=== PATIENT | male | born 1960 | race Caucasian/White ===

== ENCOUNTER 2024-07-09 14:06 | Inpatient (IN) | payer MEDICAID, SELFPAY ==
[2024-07-09] VITALS (35 sets, daily range): BP systolic 114–147; BP diastolic 63–84; PULSE 9–120; RESP 13–57; TEMP 37.2–38.6; O2SAT 81–100; BMI 20.7
--- NOTE | 2024-07-09 14:20 | PC.NURSE ---
PT BIB LIFESTAR DUE TO LOW 02 STAT, PT HAD AMS 3 DAYS PER EMS FIRE STATED HE WAS 67% ON RA PLACES ON NC 76% PT THEN WAS PLACED ON NON REBREATHER 15L 02 SAT 92% STAT PT HAS TACHY IN 110, FSBS 449 WITH EMS. PT HAS NKA. PT WAS BROUGHT TO ROOM AND WAS 82% ON NON REBREATHER. PT IS AWAKE FOLLOWS YOU WITH EYES NO OTHER RESPONSE.
--- NOTE | 2024-07-09 14:23 | PC.NURSE ---
and rt in room pt 82% on non rebreather 15l will place on high flow
--- NOTE | 2024-07-09 14:24 | PC.NURSE ---
sepsis alert called @[id number]
--- NOTE | 2024-07-09 14:24 | PD.EDSOB ---
ED SOB =RME/HPI General Chief Complaint: Altered Mental Status Stated Complaint: ALTERED MENTAL STATUS Time Seen by Provider: 07/09/24 14:28 Arrival date/time: 07/09/24 14:06 RME / HPI RME / HPI Narrative: DR. 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 Per EMS, patient was satting 67% on room air. No further history at this time. Related Data Home Medications ?Medication ?Instructions ?Recorded ?Confirmed bisacodyl 10 mg rectal suppository 10 mg TX Q72H PRN Constipation 10/12/23 10/12/23 (Dulcolax (bisacodyl)) ipratropium 0.5 mg-albuterol 3 mg 3 ml inhalation QID PRN Shortness 10/12/23 10/12/23 (2.5 mg base)/3 mL nebulization Of Breath Or Wheezing soln magnesium hydroxide 400 mg/5 mL 30 ml PO Q72H PRN Constipation 10/12/23 10/12/23 oral suspension (Milk of Magnesia) sodium phosphates 19 gram-7 118 ml TX Q72H PRN Constipation 10/12/23 10/12/23 gram/118 mL enema (Fleet Enema) Previous Rx's ?Medication ?Instructions ?Recorded cefdinir 250 mg/5 mL oral 300 mg (6 mL) feeding tube BID #60 12/26/23 suspension mL metformin 500 mg tablet 500 mg feeding tube BID #60 tabs 12/26/23 nxicibzjyyzl-buhyzjio-tuzlwfk 15 ml G-tube QDAY #750 mL 12/26/23 gluconate 12 mg iron/15 mL oral liquid thiamine mononitrate (vit B1) 100 100 mg feeding tube QDAY #30 tabs 12/26/23 mg tablet Allergies Allergy/AdvReac Type Severity Reaction Status Date / Time No Known Allergies Allergy Verified 10/16/22 11:35 Review of Systems Review of Systems ROS Unobtainable: unobtainable due to mental status and unobtainable due to medical condition Past Medical History Past Medical History NEUROLOGIC: Positive Neurological Disorders, Multiple Sclerosis and Peripheral Neuropathy; Negative Seizures CARDIAC: Positive Cardiac Disorders, Deep Vein Thrombosis and Hypertension RESPIRATORY: Positive Chronic Obstructive Pulmonary Disease (COPD) GASTROINTESTINAL: Positive Gastrointestinal Disorders, Gastrointestinal Bleed and Gastroesophageal Reflux Disease ENDOCRINE: Positive Endocrine Disorders and Diabetes Mellitus Type 2 HEMATOLOGIC: Negative Blood Disorders or Anemia PSYCHO/SOCIAL: Positive Depression and Anxiety OTHER HISTORY: Positive Hospitalization, Blood Transfusions, Chicken Pox, Measles and Mumps Family History FAMILY HISTORY: Positive Family Cardiac Disorders and Family Cancer Surgical History SURGICAL: Positive Angiogram and Tonsillectomy Social History SMOKING STATUS: Unknown if ever smoked SECOND HAND EXPOSURE: No SUBSTANCE USE: does not use ALCOHOL: Never ED Exam Narrative Physical exam: GENERAL APPEARANCE: awake but not responding; however, unknown baseline; in some respiratory distress, tachypneic VITALS: All vitals were reviewed and the pulse ox is 81% on 15 L/min via an Oxy Mask, which is hypoxic according to my interpretation. HEENT: Normocephalic, atraumatic; pupils equal, round, reactive to light; EOMI; mucous membranes pink, moist; oropharynx clear NECK: Supple LUNGS: in some respiratory distress, tachypneic; mild crackles in the right lower base HEART: tachycardic, regular rhythm; normal S1, S2; no murmurs ABDOMEN: non distended; normal BS; soft, no tenderness, no guarding, no rebound; no masses, no organomegaly, no hernia BACK: no CVA tenderness EXTREMITIES: atraumatic; lower extremity contractures NEUROLOGIC: awake but not responding; however, unknown baseline SKIN: warm, dry, normal color; no rashes Course Course Course Narrative: 1423: Sepsis alert initiated. Orders made at this time are congruent with ED Adult Sepsis Order List. Re-evaluation is to be completed. 1510: Fluids started. 1540: Sepsis reassessment performed consisting of lab review, vitals, physical exam including auscultation of heart, lungs, and visual evaluation of capillary refills, mucosal membranes and extremities. 1800: Patient was signed out to Dr. Garrido. Past medical, surgical, social and family history reviewed. Vitals and home medications reviewed. Results and treatment plan discussed. They will assume the care of the patient at this time and will follow the patient, pending abdomen/pelvis CT and final disposition. Quality Measures none Orders Category Date Time Status Bedside COVID-19 Antigen Test NOW Care 07/09/24 14:33 Active Bedside Influenza A&B Antigen Test NOW Care 07/09/24 14:33 Completed Development And Housing Director NOW Care 07/09/24 14:29 Active Catheter [Urinary Catheter] QS Care 07/09/24 14:29 Active EKG (ED ONLY) *Do not use* NOW Care 07/09/24 14:[address] abdomen pelvis wo con Stat Exams 07/09/24 16:24 Taken EKG (ED Only) Stat Exams 07/09/24 14:29 Draft XR chest 1V portable Stat Exams 07/09/24 14:29 Completed Arterial Blood Gas Stat Lab 07/09/24 14:42 Completed B-Type Natriuretic Peptide Stat Lab 07/09/24 14:27 Completed Blood Culture (Lab) Stat Lab 07/09/24 15:10 Received CBC Stat Lab 07/09/24 14:27 Completed Comprehensive Metabolic Panel Stat Lab 07/09/24 14:27 Completed Lactate (Lactic Acid) Stat Lab 07/09/24 14:44 Completed Lactic Acid, 3 HR Stat Lab 07/09/24 18:09 Received Lipase Stat Lab 07/09/24 14:27 Completed Magnesium Stat Lab 07/09/24 14:27 Completed Partial Thromboplastin Time Stat Lab 07/09/24 14:27 Completed Procalcitonin Stat Lab 07/09/24 14:27 Completed Prothrombin Time with INR Stat Lab 07/09/24 14:27 Completed Troponin I Stat Lab 07/09/24 14:27 Completed Urinalysis Stat Lab 07/09/24 14:38 Completed Urine Culture Stat Lab 07/09/24 14:38 Received Acetaminophen Supp [Tylenol Supp] Med 07/09/24 14:49 Discontinued 650 mg TX X1 ONE Insulin Regular Med 07/09/24 16:20 Discontinued 5 unit IV X1 ONE Insulin Regular Med 07/09/24 16:58 Discontinued 5 unit SC X1 ONE Piper/Tazo Inj [Zosyn Inj] 3.375 gm Med 07/09/24 16:22 Discontinued SODIUM CHLORIDE 0.9% (Popper) [Ns 0.9% (P)] 50 ml IV X1 Sodium Chloride 0.9% 1000 ml [Ns] 1,000 ml Med 07/09/24 14:49 Discontinued IV 999 mls/hr Sodium Chloride 0.9% 1000 ml [Ns] 1,000 ml Med 07/09/24 16:23 Discontinued IV 999 mls/hr Vancomycin/Ns 1 gm Ivpb 200 ml Med 07/09/24 18:30 Active IV X1 Oxygen Delivery NOW RT 07/09/24 14:41 Active Vital Signs Vital signs: Vital Signs Temperature 101.5 F H 07/09/24 14:20 Pulse Rate 120 H 07/09/24 14:20 Respiratory Rate 25 H 07/09/24 14:20 Blood Pressure 114/79 07/09/24 14:20 Pulse Oximetry (%) 81 L 07/09/24 14:20 Oxygen Delivery Method Oxy Mask 07/09/24 14:20 Oxygen Flow Rate 15 07/09/24 14:20 Procedures -ED EKG Interpretation #1: Date of EK07/09/24 Time of EK:47 Rate: 115 Interpretation: Interpreted by me Additional EKG comment: sinus tachycardia, rate 115, low voltage, Q wave in V1, slight depression in V6, diffuse ST segment Shortness of Breath / Dyspnea MDM Narrative MDM Narrative:: Vickie Reynoso am scribing for and in the presence of Dr. Olivia. Patient data External records reviewed:: [facility] previous records (Reviewed last admission discharge dated 12/26/23, patient admitted for the following: AMS) and EMS form Clinical information provided by:: EMS Social determinants that could affect healthcare access:: housing ([facility]) Patient has the following chronic illnesses:: Multiple sclerosis, CVA with hemiparesis and hemiplegia of the left side, hypertension, COPD, type 2 diabetes, hyperlipidemia, GERD, lower extremity contractures. How is presenting disease/condition affected by chronic disease/condition?: exacerbated by Evaluation data The following diagnostics were reviewed and interpreted by me:: lab results, radiology exam(s) and EKG tracing(s) (EKG#1: EKG at 1447 hours. Interpreted by me: sinus tachycardia, rate 115, low voltage, Q wave in V1, slight depression in V6, diffuse ST segment) Lab and/or radiology exams considered but not ordered:: none Interpretation Summary: Procedure(s): XR chest 1V portable Accession Number(s): [id number] cc: Aram Middleton MD; Darshana Olivia MD~ EXAMINATION: XR chest 1V portable ORDERING PROVIDER: Darshana Olivia MD HISTORY: chest pain TECHNIQUE: Single portable AP radiograph of the chest. COMPARISON: 12/23/2023, chest radiographs. FINDINGS: Lines and Tubes: Overlying monitoring leads. Lungs: Primarily linear opacities left lung base. Similar mild reticular nodular pattern. Pleura: No pneumothorax or large pleural effusion. Cardiomediastinal Silhouette: Mild prominence of the uncoiled aorta and calcifications of the aortic arch. Soft Tissues/Bones: Diffuse osteopenia. Overlying clothing and jewelry. IMPRESSION: Linear opacities left lung base which may represent developing infection or scarring/atelectasis in setting of old left basilar pneumonia. Dictated By: Aram Middleton MD Medications / Prescriptions Medications or Prescriptions considered but not ordered:: none Medication administrations:: Medication Administration History Vancomycin/Sodium Chloride (Vancomycin/Ns 1 Gm Ivpb) 200 mls @ 120 mls/hr IV X1 ONE Stop: 07/09/24 20:09 Discontinued Medications Acetaminophen (Acetaminophen Supp 650 Mg Supp) 650 mg TX X1 ONE Stop: 07/09/24 14:50 Last Admin: 07/09/24 15:13 Dose: 650 mg Documented By: BD Sodium Chloride (Ns) 1,000 mls @ 999 mls/hr IV .Q1H1M ONE Stop: 07/09/24 15:49 Last Infusion: 07/09/24 16:15 Dose: Infused Documented By: Admin: 07/09/24 15:10 Dose: 999 mls/hr Documented By: BD Piperacillin Sod/Tazobactam (Sod 3.375 gm/ Sodium Chloride) 50 mls @ 100 mls/hr IV X1 ONE Stop: 07/09/24 16:51 Last Infusion: 07/09/24 17:21 Dose: Infused Documented By: Admin: 07/09/24 16:28 Dose: 100 mls/hr Documented By: BD Sodium Chloride (Ns) 1,000 mls @ 999 mls/hr IV .Q1H1M ONE Stop: 07/09/24 17:23 Last Infusion: 07/09/24 18:01 Dose: Infused Documented By: Admin: 07/09/24 16:29 Dose: 999 mls/hr Documented By: BD Insulin Human Regular (Insulin Hum Regular 1 Unit/0.01 Ml (Per Unit)) 5 unit IV X1 ONE Stop: 07/09/24 16:21 Last Admin: 07/09/24 16:25 Dose: 5 unit Documented By: NEHA Co-signed By: [facility] Insulin Human Regular (Insulin Hum Regular 1 Unit/0.01 Ml (Per Unit)) 5 unit SC X1 ONE Stop: 07/09/24 16:59 Last Admin: 07/09/24 18:15 Dose: Not Given Documented By: NEHA Non-Admin Reason: Cancelled by Provider see above Consultations Consultation(s) initiated? (list below): No Diagnosis Shortness of Breath Differential Diagnosis: congestive heart failure, community acquired pneumonia, asthma with exacerbation, pulmonary embolism and other (sepsis) Most likely diagnosis given after review of the tests above:: No official diagnoses at this time, still pending diagnostic tests. Patient signout to the retail shift supervisor provider. Admission Indicated Admission indicated?: not indicated Explain why admission is indicated or not indicated:: No final disposition plan at this time, still pending diagnostic tests. Patient signout to the retail shift supervisor provider. Admission Request Was there a request for admission?: No Disposition Plan Disposition Plan: other (specify) (Patient signout to the retail shift supervisor provider.) Critical Care Time Critical Care Time Critical Care Time: Yes Total Critical Care Time (min.): 30 Attestation: The high probability of sudden, clinically significant deterioration in the patient?s condition required the highest level of my preparedness to intervene urgently. The services I provided to this patient were to treat and/or prevent clinically significant deterioration. Services included the following: chart data review, reviewing nursing notes and/or old charts, documentation time, corporate health consultant collaboration regarding findings and treatment options, medication orders and management, direct patient care, vital sign assessments and ordering, interpreting and reviewing diagnostic studies and lab tests. Aggregate critical care time includes only time during which I was engaged in work directly related to the patient?s care, as described above, whether at bedside or elsewhere in the Emergency Department. It did not include time spent performing other reported procedures or the services of residents, students, nurses or physician assistants. Discharge Plan Prescriptions/Referrals Prescriptions/Med Rec: No Action ipratropium-albuterol 0.5 mg-3 mg(2.5 mg base)/3 mL Solution For Nebulization 3 ml INHALATION QID PRN (Reason: Shortness Of Breath Or Wheezing) magnesium hydroxide [Milk of Magnesia] 400 mg/5 mL Suspension 30 ml PO Q72H PRN (Reason: Constipation) Rx Instructions: if no bm for 3 days bisacodyl [Dulcolax (bisacodyl)] 10 mg Suppository 10 mg TX Q72H PRN (Reason: Constipation) Rx Instructions: if mom is ineffective Fleet Enema 19-7 gram/118 mL Enema 118 ml TX Q72H PRN (Reason: Constipation) Rx Instructions: if mom/dulcolax ineffective [id number] gluconate 12 mg iron/15 mL Liquid 15 ml G-tube QDAY Qty: 750 0RF thiamine mononitrate (vit B1) 100 mg Tablet 100 mg feeding tube QDAY Qty: 30 0RF cefdinir 250 mg/5 mL suspension for reconstitution 300 mg feeding tube BID Qty: 60 0RF metformin 500 mg Tablet 500 mg feeding tube BID Qty: 60 0RF Referrals: Cristian Ferguson MD [Primary Care Provider] - In 1 week Problem List Clinical Impression: Hypoxia, Sepsis, AMS (altered mental status) Patient/Caregiver Discharge Instructions Print Language: Citizen Of [place]
--- NOTE | 2024-07-09 14:29 | XR_ITS ---
EXAMINATION: XR chest 1V portable ORDERING PROVIDER: Darshana Olivia MD HISTORY: chest pain TECHNIQUE: Single portable AP radiograph of the chest. COMPARISON: 12/23/2023, chest radiographs. FINDINGS: Lines and Tubes: Overlying monitoring leads. Lungs: Primarily linear opacities left lung base. Similar mild reticular nodular pattern. Pleura: No pneumothorax or large pleural effusion. Cardiomediastinal Silhouette: Mild prominence of the uncoiled aorta and calcifications of the aortic arch. Soft Tissues/Bones: Diffuse osteopenia. Overlying clothing and jewelry. IMPRESSION: Linear opacities left lung base which may represent developing infection or scarring/atelectasis in setting of old left basilar pneumonia.
--- NOTE | 2024-07-09 14:29 | EKG_ITS ---
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
[2024-07-09 14:47] LABS: Base Excess 5 (-3-3); HCO3 29 mEq/L (20-26); Inspired Oxygen, FIO2 100 %; O2 Saturation 89 % (91-98); PCO2 39 mmHg (32.0-48.0); pH, Arterial 7.47 (7.35-7.45)
[2024-07-09 14:49] LABS: Allen Test Performed/OK; PO2 54 mmHg (83-108); Puncture Site Right Brachial
[2024-07-09 14:53] LABS: Lactate (Lactic Acid) 2.3 mMol/L (0.4-2.0)
--- NOTE | 2024-07-09 14:57 | PC.NURSE ---
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 AND SHE STATED THAT SHE DOES NOT WANT US TO INTUBATE. ASK IF SHE WANTED TO SPEAK WITH DAUGHTER SHE SAID NOT AT THIS TO LET HER KNOW WE WILL TREAT WITH ABX AND FLUIDS.
[2024-07-09 14:59] LABS: Basophils # (Auto) 0.1 Thou/mm3 (0.0-0.2); Basophils % (Auto) 0 % (0-2.5); Eosinophils # (Auto) 0.1 Thou/mm3 (0.0-0.5); Eosinophils % (Auto) 0 % (0-10); Hematocrit 40.2 % (41.0-53.0); Hemoglobin 12.2 g/dL (13.5-16.0); Immature Granulocytes % (Auto) 1 % (0-0); Immature Granulocytes Auto 0.18 Thou/mm3 (0.00-0.00); Lymphocytes % (Auto) 6 % (10-50); Mean Corpuscular HGB Conc 30.3 g/dl (31.0-37.0); Mean Corpuscular Hemoglobin 25.9 pg (25.0-35.0); Mean Corpuscular Volume 85 fL (80-100); Monocytes # (Auto) 0.9 Thou/mm3 (0.0-0.8); Monocytes % (Auto) 3 % (0-12); Neutrophils # (Auto) 28.9 Thou/mm3 (1.8-7.7); Neutrophils % (Auto) 90 % (37-80); Nucleated Red Blood Cell % 0 /100 WBC (0); Platelet Count 723 Thou/mm3 (140-440); RDW Standard Deviation 51.8 fL (35.1-43.9); Red Blood Count 4.71 Miln/mm3 (4.50-5.90); White Blood Count 32.2 Thou/mm3 (3.8-10.6)
[2024-07-09 15:08] LABS: Collection Type, Urine Clean Catch
[2024-07-09] MEDS: SODIUM CHLORIDE 0.9% 1000 ML 1,000 ML 999 ML IV ×2 (15:10→16:29)
[2024-07-09 15:12] LABS: INR 1.2 (0.9-1.3); Partial Thromboplastin Time 29.9 Seconds (22.0-36.0)
[2024-07-09] MEDS: ACETAMINOPHEN SUPP 650 MG SUPP PR (15:13)
[2024-07-09 15:23] LABS: Alanine Aminotransferase 37 U/L (10-49); Albumin, Serum 3.8 gm/dL (3.4-4.8); Alkaline Phosphatase 91 U/L (46-116); Anion Gap 11 (7-16); Aspartate Amino Transferase 19 U/L (0-34); BUN/Creatinine Ratio 38 Ratio (12-20); Bilirubin,Total 0.2 mg/dL (0.3-1.2); Blood Urea Nitrogen 100 mg/dL (9-23); Calcium 9.4 mg/dL (8.3-10.6); Calcium (Corrected) 9.6 mg/dL (8.5-10.1); Carbon Dioxide 26.8 mMol/L (20.0-31.0); Chloride 119 mMol/L (98-107); Creatinine (Component) 2.6 mg/dL (0.6-1.3); Estimated Creatinine Clearance 27.8 mL/min (>60); Lipase 79 U/L (12-53); Magnesium 2.6 mg/dL (1.6-2.6); Osmolality,Calculated 365 (275-295); Potassium 4.9 mMol/L (3.4-5.1); Procalcitonin 1.38 ng/ml (0.0-0.49); Sodium 157 mMol/L (136-145); Total Protein 7.8 gm/dL (5.7-8.2); Troponin I < 0.020 ng/mL (0.0-0.045); eGFR 27 See Note
[2024-07-09 15:24] LABS: Glucose 515 mg/dL (74-106)
--- NOTE | 2024-07-09 15:30 | PC.NURSE ---
SOREN FROM [facility] CALLED TO ASK ROBSON ON PT INFORMED WE ARE WAITING FOR RESULTS AND THAT PT IS CURRENTLY ON HIGH FLOW. SHE WANTED US TO CALL DAUGHTER ADVISED THAT DAUGHTER HAS CALLED AND WE SPOKE WITH HER.SHE ALSO ADVISED THAT PT HAS BEEN NPO SINCE YESTERDAY DUE TO DIFFICULTY SWALLOWING.
--- NOTE | 2024-07-09 15:34 | PC.NURSE ---
CRITICAL VALUE FOR GLUCOSE 518 DR. SANTIAGO NOT AVAILABLE WILL NOTIFY WHEN BACK
[2024-07-09 15:38] LABS: Bilirubin,Urine Negative (Negative); Blood,Urine Negative (Negative); Color,Urine Yellow (Lt Yel-Yel); Glucose, Urine 3+ (Negative); Hyaline Casts,Urine < 1 /hpf (0-1); Ketones,Urine Negative (Negative); Leukocyte Esterase,Urine Positive (Negative); Nitrite,Urine Positive (Negative); Protein,Urine 1+ (Neg - Trace); RBC,Urine 7 /hpf (0-3); Specific Gravity,Urine 1.023 (1.001-1.035); Squamous Epithelial Cell,Urine 1 /hpf (0-5); Urobilinogen,Urine Negative mg/dL (0.0-1.0); WBC,Urine 62 /hpf (0-5)
[2024-07-09 15:40] LABS: Clarity,Urine Hazy (Clear/Hazy)
[2024-07-09 15:47] LABS: B-Type Natriuretic Peptide 52 pg/mL (0-100)
--- NOTE | 2024-07-09 16:20 | PC.NURSE ---
NOTIFIED DR. SANTIAGO OF BLOOD GLUCOSE 515
--- NOTE | 2024-07-09 16:21 | PC.NURSE ---
PT HAD EPISODE INCONTINENCE BRIEF CHANGED ALONG WITH CLEAN LINEN
--- NOTE | 2024-07-09 16:24 | XR_ITS ---
Examination: CT abdomen and pelvis without contrast. Coronal 3-D reconstructions. Sagittal 2-D reconstructions. Date and time of exam:July 10, 2023 1709 hrs. Indications: Sepsis abdominal pain today CTDI: vol (mGy): 7.92 DLP: (mGycm): 431 Technique: Axial images of the abdomen have been obtained, 3 mm slice thickness Intravenous contrast material has not been administered. Low dose protocols were performed. One or more of the following dose reduction techniques were used; automated exposure control, adjustment of the mA and/or KV according to patient size, use of iterative reconstruction technique. Findings: Bibasilar pneumonia, significant left base No focal liver or splenic lesion No gallstones No pancreatic or adrenal mass Bilateral renal calculi, the largest left kidney 5 mm Moderate right hydronephrosis, no ureteral calculi No pericecal inflammatory change No bowel obstruction Common iliac artery stents No diverticulitis Contracted urinary bladder with urinary bladder wall thickening urinary Marr catheter Transverse prostate dimension 3.6 cm Impression: Bibasilar pneumonia, significant left base Bilateral renal calculi Moderate right hydronephrosis, no ureteral calculi, consider right pyelonephritis Cystitis pattern
[2024-07-09] MEDS: INSULIN HUM REGULAR 1 UNIT/0.01 ML (PER UNIT) 5 UNIT IV (16:25)
[2024-07-09] MEDS: PIPER/TAZO INJ 3.375 GM in SODIUM CHLORIDE 0.9% (Popper) 50 ML IV (16:28)
--- NOTE | 2024-07-09 16:58 | PC.NURSE ---
NOTIFIED FSBS 398
--- NOTE | 2024-07-09 17:04 | PC.NURSE ---
PT WENT TO CT UNABLE TO GIVE INSULIN WILL GIVE WHEN PT RETURNS
--- NOTE | 2024-07-09 17:22 | PC.NURSE ---
CALLED PHARMACY FOR CLARITZA
[2024-07-09 17:50] LABS: Reflex Lactate? Y
--- NOTE | 2024-07-09 18:04 | PC.NURSE ---
DAUGHTER CALLED TO GET UPDATE ADVISED WE ARE WAITING FOR CT AT THIS TIME XRAY WAS NOT CLEAR. SHE WAS CONCERNED A RED SPOT LAST WEEK ON HIP ADVISED IT IS NOT VISIBLE. THERE IS A SCAB AT THE MOMENT SHE STATED OK. SHE SAID THAT HER SISTER MAY CALL TO TALK TO PT I ASKED IF SHE WANTED TO SHE SAID NO NOT AT THE MOMENT.
--- NOTE | 2024-07-09 18:14 | PC.NURSE ---
RECHECKED FSBS AFTER 2L FLUID [address] SANTIAGO SHE STATED TO CANCEL OTHER 5 UNITS INSULIN
--- NOTE | 2024-07-09 18:20 | PD.EDADDENDU ---
Emergency Room Addendum <Brooklyn Garrido MD - Last Filed: 07/09/24 19:12> Addendum Narrative: Care assumed from Dr. Olivia, the previous shift emergency physician. Past medical, surgical, social and family history reviewed. Vitals and home medications reviewed. Results and treatment plan discussed. I will assume the care of the patient at this time and will follow the patient, pending reevaluation, review all radiographs and admission. I, Dr. Franklin will following this patient with the resident. <Colby Forte MD - Last Filed: 07/09/24 23:12> Addendum Narrative: 1800: Care assumed from Dr. Olivia, the previous shift emergency physician. Past medical, surgical, social and family history reviewed. Vitals and home medications reviewed. Results and treatment plan discussed. I will assume the care of the patient at this time and will follow the patient, pending reevaluation, review all radiographs and admission. I, Dr. Franklin will follow this patient with the resident. 1814: Patient is awake but nonverbal, which is baseline for him. He is on high flow oxygen saturating 94%. Bilateral rhonchi appreciated on auscultation. 1914: Spoke with hospitalist team Dr. Valentin for admission, patient will be evaluated and possibly admitted. 2015: accepted for admission. <Curtis Bui - Last Filed: 07/09/24 20:11> Addendum Narrative: 1800: Care assumed from Dr. Olivia, the previous shift emergency physician. Past medical, surgical, social and family history reviewed. Vitals and home medications reviewed. Results and treatment plan discussed. I will assume the care of the patient at this time and will follow the patient, pending reevaluation, review all radiographs and admission. IDr. Franklin will follow this patient with the resident. 1814: Patient is awake but nonverbal, which is baseline for him. He is on high flow oxygen saturating 94%. Bilateral rhonchi appreciated on auscultation. 1914: Spoke with hospitalist team Dr. Valentin for admission, patient will be evaluated and possibly admitted. MD Attestation <Curtis Bui - Last Filed: 07/09/24 20:11> MD Attestation Scribe Attestation: I, Piter Bui, am scribing for and in the presence of Dr. Garrido. Provider Notation: Although this document has been carefully reviewed, there may still be some phonetic and other typographical errors. These errors are purely grammatical due to imperfections in the software program and should not be construed in any way to compromise the substance of the patient's medical care during this visit.
[2024-07-09 18:24] LABS: Lactic Acid, 3 HR 2.5 mMol/L (0.4-2.0)
[2024-07-09] MEDS: VANCOMYCIN/NS 1 GM IVPB 200 ML IV (18:35)
[2024-07-09 22:15] LABS: Lactate (Lactic Acid) 2.2 mMol/L (0.4-2.0)
--- NOTE | 2024-07-09 22:29 | ESHP_ITS ---
<Statement entered by Sandeep Alcocer MD - 07/13/24 05:05> 63-year-old male with multiple comorbidities including hypertension, hyperlipidemia, type 2 diabetes mellitus with subsequent ischemic CVA respiratory failure left-sided residual Who is nonverbal at baseline presented from [facility] for shortness of breath and hypoxia. In the ER, patient was noted to be hypoxic in the setting of sepsis secondary to pneumonia and acute pyelonephritis for which plan to start IV antibiotic therapy. In addition, patient also noted to have severe hyponatremia with sodium levels in the 160s and subsequently started on D5W. Furthermore, plan to admit the patient to ICU and monitored closely.I reviewed above note and agree with findings and plans. I have also personally examined the patient with medicine team and went over assessment and plan with medical team including technical support internship and resident physician. Documentation for date of: 07/09/24 HPI History of Present Illness Chief complaint: Hypoxemia /Hypernatremia History of present illness: 63 year old male patient with PMHx significant for MS, CVA with L/S hemiplegia, HTN, COPD, IDDM II, HLD, GERD, lower extremity contractures, who is also and bedridden, and non-verbal at baseline, BIBA from [facility] for complaints of shortness of breath, hypoxia for past 3 days. At ED patient's vitals were noted to be 115/80, HR 120, RR 25, T 101.5 with oxygen saturation of 81% on 15L OxyMask. Labs noted for WBC 32.2, Hgb 12.2, platelets 720, Na 164, Cl 128, Glucose 245, BUN 86, Cr 2.2, lactate of 2.2, procal of 1.4, and UA WBC 62. A/P CT showed significant left base pneumonia, bilateral nonobstructing renal calculi along with moderate hydronephrosis on the right side. Patient was started on Zosyn after receiving 2L of NS boluses at ED. Patient was initially admitted to the floor but was upgraded to ICU for further managment and care of sepsis secondary to pyelonephritis along with hypovolemic hypernatremia. Review of Systems Review of Systems ROS Unobtainable: unobtainable due to medical condition Past Medical History Past Medical History NEUROLOGIC: Positive Cerebrovascular Accident, Multiple Sclerosis and Paralysis Past Medical History Comments PMH COMMENT: Multiple sclerosis Right CVA with residual left lower extremity weakness Diabetes mellitus type 2 COPD secondary to smoking Exam Vital Signs Temp Pulse Resp BP Pulse Ox O2 Del Method O2 Flow Rate 99.1 F 88 20 114/63 96 Room Air 30 07/09/24 20:26 07/09/24 20:26 07/09/24 20:26 07/09/24 20:26 07/09/24 20:26 07/09/24 20:26 07/09/24 18:46 FiO2 80 07/09/24 18:46 Narrative Exam General: Alert, non verbal/bedbound, unable to follow commands, lying in bed in moderate distress. Cardio: Normal Rate and Rhythm with S1 and S2 heart sounds. No murmurs or extra heart sounds auscultated. No bruits on carotid auscultation. No peripheral edema or cyanosis. Lungs: Symmetric with good expansion. Chest and back non-tender. Breath sounds vesicular without crackles, wheezing or rhonchi Abdomen: Non-tender, Non-distended, Normal Reactive Bowel Sounds Neuro: Alert but does not follow commands, non verbal and bedbound, left upper hand/arm contracture noted. Unable to assess for complete neuroexam. Results: Labs 07/10/24 04:36 07/10/24 04:36 Labs: Short CBC 07/09/24 Range/Units 14:27 WBC 32.2 H (3.8-10.6) Thou/mm3 Hgb 12.2 L (13.5-16.0) g/dL Hct 40.2 L (41.0-53.0) % Plt Count 723 H (140-440) Thou/mm3 BMP 07/09/24 14:27 Sodium 157 H Potassium 4.9 Chloride 119 H Carbon Dioxide 26.8 BUN 100 H Creatinine 2.6 H Glucose 515 H* Calcium 9.4 Cardiac Enzymes 07/09/24 Range/Units 14:27 Troponin I < 0.020 (0.0-0.045) ng/mL Liver Function 07/09/24 Range/Units 14:27 Total Bilirubin 0.2 L (0.3-1.2) mg/dL AST 19 (0-34) U/L ALT 37 (10-49) U/L Alkaline Phosphatase 91 (46-116) U/L Albumin 3.8 (3.4-4.8) gm/dL Urine 07/09/24 Range/Units 14:38 Urine Color Yellow (Lt Yel-Yel) Urine Clarity Hazy (Clear/Hazy) Urine pH 6.0 (5.0-7.0) Ur Specific [place] 1.023 (1.001-1.035) Urine Protein 1+ A (Neg - Trace) Urine Glucose (UA) 3+ A (Negative) ABG Interpretation ABG results: 07/09/24 14:42 ABG pH 7.47 H ABG pCO2 39 ABG pO2 54 L* ABG HCO3 29 H ABG O2 Saturation 89 L ABG Base Excess 5 H Quality Measures Quality Measures none Medications Home Medications and Allergies Home Medications ?Medication ?Instructions ?Recorded ?Confirmed ?Type bisacodyl 10 mg rectal suppository 10 mg NV Q72H PRN C onstipation 10/12/23 07/10/24 History (Dulcolax (bisacodyl)) ipratropium 0.5 mg-albuterol 3 mg 3 ml inhalation QID PRN Shortness 10/12/23 07/10/24 History (2.5 mg base)/3 mL nebulization Of Breath Or Wheezing soln magnesium hydroxide 400 mg/5 mL 30 ml PO Q72H PRN Cons tipation 10/12/23 07/10/24 History oral suspension (Milk of Magnesia) sodium phosphates 19 gram-7 118 ml NV Q72H PRN Constip ation 10/12/23 07/10/24 History gram/118 mL enema (Fleet Enema) azithromycin 250 mg tablet 250 mg feeding tube QDAY 07/10/24 History Respiratory Infection insulin glargine 100 unit/mL (3 16 unit subcut HS Diab etes 07/10/24 07/10/24 History mL) subcutaneous pen (Lantus Solostar U-100 Insulin) Allergies Allergy/AdvReac Type Severity Reaction Status Date / Time No Known Allergies Allergy Verified 10/16/22 11:35 Visit Medications Albuterol/Ipratropium (Albuterol/Ipratropium (Duoneb) Rt Erica 3 Ml Nebu) 3 ml INH Q6HRRT TOOTIE Stop: 08/09/24 00:59 Bisacodyl (Bisacodyl 5 Mg Tabec) 10 mg PO QDAY PRN; Protocol PRN Reason: CONSTIPATION Stop: 08/08/24 22:14 Dextrose (Dextrose 50%-Water Inj 50 Ml Syringe) 25 ml IV Q15MIN PRN PRN Reason: BG 50-70 responsive npo pt Stop: 08/08/24 22:25 Dextrose (Dextrose 50%-Water Inj 50 Ml Syringe) 50 ml IV Q15MIN PRN PRN Reason: BG <50 OR BG <70 & pt unresponsive Stop: 08/08/24 22:25 Glucagon (Glucagon Inj 1 Mg Vial) 1 mg IM Q15MIN PRN PRN Reason: BG <70, and no IV access Piperacillin Sod/Tazobactam (Sod 4.5 gm/ Sodium Chloride) 100 mls @ 200 mls/hr IV Q6HR TOOTIE Stop: 07/16/24 22:23 Doxycycline Hyclate 100 mg/ (Sodium Chloride) 100 mls @ 100 mls/hr IV BID [facility] Stop: 07/16/24 22:29 Insulin Human Lispro (Insulin Lispro (Admelog) 1 Unit/0.01 Ml Unit) 0 unit SC AC [facility]; Protocol Stop: 08/09/24 07:29 Ondansetron HCl (Ondansetron Inj 2 Mg/Ml Inj 2 Ml) 4 mg IV Q6H PRN; Protocol PRN Reason: NAUSEA OR VOMITING Stop: 08/08/24 22:14 Oxycodone/Acetaminophen (Oxycodone/Apap 5/325 Tablet) 1 tab PO Q6H PRN PRN Reason: PAIN SCALE 4-6 (Moderate Stop: 07/14/24 22:14 Pantoprazole Sodium (Pantoprazole Inj 40 Mg Vial) 40 mg IVP QDAY [facility] Stop: 08/09/24 08:59 Pharmacy Consult (Pharmacy Renal Dose Adjustment 1 Ea) 1 each XX PRN PRN PRN Reason: CONSULT Stop: 08/08/24 22:22 Discontinued Medications Acetaminophen (Acetaminophen Supp 650 Mg Supp) 650 mg NV X1 ONE Stop: 07/09/24 14:50 Last Admin: 07/09/24 15:13 Dose: 650 mg Sodium Chloride (Ns) 1,000 mls @ 999 mls/hr IV .Q1H1M ONE Stop: 07/09/24 15:49 Last Infusion: 07/09/24 16:15 Dose: Infused Piperacillin Sod/Tazobactam (Sod 3.375 gm/ Sodium Chloride) 50 mls @ 100 mls/hr IV X1 ONE Stop: 07/09/24 16:51 Last Infusion: 07/09/24 17:21 Dose: Infused Sodium Chloride (Ns) 1,000 mls @ 999 mls/hr IV .Q1H1M ONE Stop: 07/09/24 17:23 Last Infusion: 07/09/24 18:01 Dose: Infused Vancomycin/Sodium Chloride (Vancomycin/Ns 1 Gm Ivpb) 200 mls @ 120 mls/hr IV X1 ONE Stop: 07/09/24 20:09 Last Admin: 07/09/24 18:35 Dose: 120 mls/hr Insulin Human Regular (Insulin Hum Regular 1 Unit/0.01 Ml (Per Unit)) 5 unit IV X1 ONE Stop: 07/09/24 16:21 Last Admin: 07/09/24 16:25 Dose: 5 unit Insulin Human Regular (Insulin Hum Regular 1 Unit/0.01 Ml (Per Unit)) 5 unit SC X1 ONE Stop: 07/09/24 16:59 Last Admin: 07/09/24 18:15 Dose: Not Given Assessment & Plan Plan 63 year old male patient with PMHx significant for MS, CVA with L/S hemiplegia, HTN, COPD, IDDM II, HLD, GERD, lower extremity contractures, who is also and bedridden, and non-verbal at baseline, BIBA from [facility] for complaints of shortness of breath, hypoxia for past 3 days. At ED patient's vitals were noted to be 115/80, HR 120, RR 25, T 101.5 with oxygen saturation of 81% on 15L OxyMask. Labs noted for WBC 32.2, Hgb 12.2, platelets 720, Na 164, Cl 128, Glucose 245, BUN 86, Cr 2.2, lactate of 2.2, procal of 1.4, and UA WBC 62. A/P CT showed significant left base pneumonia, bilateral nonobstructing renal calculi along with moderate hydronephrosis on the right side. Patient was started on Zosyn after receiving 2L of NS boluses at ED. Patient was initially admitted to the floor but was upgraded to ICU for further managment and care of sepsis secondary to PNA/ Pyelonephritis along with hypovolemic hypernatremia. 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 Patient alert and able to protect airways. No concern for stroke/bleed at this time. Does not follow commands, will continue to monitor patient for improvement. F/U with custodial for baseline mental status. CVS #Severe sepsis 2/2 Pyelonephritis. #Lactic acidosis -Fluid resuscitated, maintaining MAP>65. -Patient started on antibiotics with Zosyn and doxycycline. -F/U of BCx/UCX/sputum cultures #Hx of PE on Eliquis Continue home Eliquis bid Hypoxia/tachycardia likely 2/2 sepsis Low suspicion for new PE as patient is on Eliquis. Continue patient's home Eliquis and consider CTA if condition declines despite sepsis resolved. Resp #Acute hypoxic respiratory failure In setting of sepsis 2/2 PNA -On HFNC 25L of 90% FiO2 -No pneumonia findings on CXR. -Continue to monitor oxygen requirements and wean as tolerated. -Patient started on doxycycline and Zosyn. -Follow-up BCx/UCX/sputum cultures and MRSA screen. Renal #Pylonephritis #BARBARA likely prerenal in setting of severe dehydration. #Bilateral nonobstructing renal calculi #Right hydronephrosis #Hypovolemic hypernatremia -Sodium checks every 3 hours. -Free water deficit calculated to be 6.7L. -Aim for correction rate of 6?8 mill equivalent/day -Correct first 24-hour water deficit by 2 L of free water flushes. -Increase Free water flushes to 125cc/hr. -Nephrology consulted, recommendations appreciated. ID #Sepsis 2/2 PNA/pyelonephritis----resolving -Fluid resuscitated, lactate improving, de-escalate antibiotics as warranted -F/U cultures Heme Prior baseline Hgb 9?10, PLT 250 #Anemia chronic disease #Leukocytosis 2/2 Pyelonephritis #Acute anemia/thrombocytosis in setting of severe dehydration Patient fluid resuscitated, follow-up a.m. CBC Endo #IDDM II -Maintain BG between 140-180 ideally -Patient started on ISS. -Continue home glargine 16 units daily -Prior HbA1c on 10/24 7.6 -Follow-up A1c GI #PEG tube feeding. Dietary consult, resume tube feeding with adjustments accordingly. DVT prophylaxis: Eliquis Diet: Tube feeding Marr: + Lines: PIV, PEG tube CODE STATUS: Full code Reason for hospitalization/disposition: Sepsis 2/2 PNA- Pylonephritis- Hypernatremia Plan of care discussed with attending Dr. Leodan Mcnulty PGY-3
[2024-07-09 22:46] LABS: Albumin, Serum 3.2 gm/dL (3.4-4.8); Anion Gap 11 (7-16); BUN/Creatinine Ratio 39 Ratio (12-20); Blood Urea Nitrogen 86 mg/dL (9-23); Calcium 8.6 mg/dL (8.3-10.6); Carbon Dioxide 25.1 mMol/L (20.0-31.0); Chloride 128 mMol/L (98-107); Creatinine (Component) 2.2 mg/dL (0.6-1.3); Estimated Creatinine Clearance 32.8 mL/min (>60); Glucose 245 mg/dL (74-106); Osmolality,Calculated 358 (275-295); Potassium 4.2 mMol/L (3.4-5.1); eGFR 33 See Note
[2024-07-09 22:47] LABS: Calcium (Corrected) 9.2 mg/dL (8.5-10.1); Thyroid Stimulating Hormone 0.73 uIU/mL (0.55-4.78)
[2024-07-09] MEDS: DOXYCYCLINE INJ 100 MG in SODIUM CHLORIDE 0.9% (POP) 100 ML IV (22:50)
[2024-07-09 22:57] LABS: Sodium 164 mMol/L (136-145)
[2024-07-09] MEDS: LACTULOSE SYRUP 20 GM/30 ML UDC 10 GM GT (23:41)
[2024-07-09] MEDS: INSULIN LISPRO (AdmeLOG) 1 UNIT/0.01 ML UNIT SC (23:42)
[2024-07-10] VITALS (37 sets, daily range): BP systolic 103–147; BP diastolic 48–82; PULSE 92–128; RESP 7–48; TEMP 36.3–38.8; O2SAT 89–100; BMI 16.1; BMI 16.0
[2024-07-10] MEDS: ALBUTEROL/IPRATROPIUM (Duoneb) RT SOL 3 ML NEBU INH ×2 (00:10→06:08)
[2024-07-10] MEDS: PIPER/TAZO INJ 3.375 GM in SODIUM CHLORIDE 0.9% (Popper) 50 ML IV ×4 (00:13→21:29)
[2024-07-10 01:16] LABS: Reflex Lactate? Y
[2024-07-10 01:36] LABS: Lactic Acid, 3 HR 2.3 mMol/L (0.4-2.0)
[2024-07-10 01:48] LABS: Sodium 166 mMol/L (136-145)
--- NOTE | 2024-07-10 06:21 | PC.NURSE ---
Spoke to point of contact, Veronica Cramre (daughter) gave update on patient status. confirmed with daughter that patient wanted to be DNR and that the POLST form on file is not updated. Current status is full code and call was transfered to Dr. Mcnulty. Called [facility] where Patient is from and was unable to contact staff for updated POLST form.
--- NOTE | 2024-07-10 06:29 | PD.RESEVENT ---
Documentation for date of: 07/10/24 Event Note Event Note: Received call from patient's daughter Veronica who lives in [place] regarding patient's CODE STATUS and updated POLST form, she states that patient has an updated POLST form showing his status to be DNR/DNI. Records received from detention facility does not reflect CODE STATUS change and patient remains full code. Will contact patient's nursing facility with social worker delinquency prevention for updated POLST form in a.m.
[2024-07-10 06:32] LABS: Basophils # (Auto) 0.1 Thou/mm3 (0.0-0.2); Basophils % (Auto) 0 % (0-2.5); Eosinophils # (Auto) 0.4 Thou/mm3 (0.0-0.5); Eosinophils % (Auto) 1 % (0-10); Hematocrit 35.2 % (41.0-53.0); Hemoglobin 10.6 g/dL (13.5-16.0); Immature Granulocytes % (Auto) 1 % (0-0); Immature Granulocytes Auto 0.31 Thou/mm3 (0.00-0.00); Lymphocytes # (Auto) 1.4 Thou/mm3 (1.0-4.8); Lymphocytes % (Auto) 4 % (10-50); Mean Corpuscular HGB Conc 30.1 g/dl (31.0-37.0); Mean Corpuscular Hemoglobin 26.9 pg (25.0-35.0); Mean Corpuscular Volume 89 fL (80-100); Monocytes # (Auto) 1.1 Thou/mm3 (0.0-0.8); Monocytes % (Auto) 3 % (0-12); Neutrophils # (Auto) 33.1 Thou/mm3 (1.8-7.7); Neutrophils % (Auto) 91 % (37-80); Nucleated Red Blood Cell % 0 /100 WBC (0); Platelet Count 521 Thou/mm3 (140-440); Red Blood Count 3.94 Miln/mm3 (4.50-5.90)
--- NOTE | 2024-07-10 06:37 | PC.NURSE ---
Attempt #2 at calling [facility], no answer left voicemail regarding clarifying code status.
[2024-07-10 06:44] LABS: Alanine Aminotransferase 35 U/L (10-49); Albumin, Serum 3.4 gm/dL (3.4-4.8); Albumin/Globulin Ratio 0.9 (1.2-2.2); Alkaline Phosphatase 78 U/L (46-116); Anion Gap 14 (7-16); Aspartate Amino Transferase 18 U/L (0-34); BUN/Creatinine Ratio 38 Ratio (12-20); Bilirubin,Total 0.5 mg/dL (0.3-1.2); Blood Urea Nitrogen 80 mg/dL (9-23); Calcium 9.6 mg/dL (8.3-10.6); Calcium (Corrected) 10.1 mg/dL (8.5-10.1); Carbon Dioxide 26.4 mMol/L (20.0-31.0); Chloride 130 mMol/L (98-107); Creatinine (Component) 2.1 mg/dL (0.6-1.3); Estimated Creatinine Clearance 26.6 mL/min (>60); Globulin 3.7 gm/dL (2.3-3.5); Glucose 120 mg/dL (74-106); Magnesium 2.4 mg/dL (1.6-2.6); Osmolality,Calculated 360 (275-295); Phosphorous 2.9 mg/dL (2.4-5.1); Potassium 3.8 mMol/L (3.4-5.1); Total Protein 7.1 gm/dL (5.7-8.2); eGFR 35 See Note
[2024-07-10 06:49] LABS: White Blood Count 36.4 Thou/mm3 (3.8-10.6)
[2024-07-10 06:53] LABS: Sodium 170 mMol/L (136-145)
[2024-07-10 07:20] LABS: Glucose Estimated Average 200 mg/dL (80-131); Hemoglobin A1C 8.6 % Hgb (4.8-6.0)
[2024-07-10 07:46] LABS: Path Review Blood Smear Sent to Pathologist
--- NOTE | 2024-07-10 08:04 | PD.RESPRO ---
Documentation for date of: 07/10/24 Subjective Subjective Interval history: patient was examined bedside this morning, his sodium was 170. sharted him on D5W @45ml/hr and will continue free water flushed @20 ml/hr and do Q2 na checks. we are following up with the child welfare social worker for his comfirmed code status. we will update it accordingly . Exam Vital Signs Temp Pulse Resp BP Pulse Ox O2 Del Method O2 Flow Rate 98.1 F 99 31 H 128/62 99 High Flow Nasal Cannula 20 07/10/24 04:00 07/10/24 07:00 07/10/24 07:00 07/10/24 07:00 07/10/24 07:00 07/10/24 02:00 07/10/24 06:10 FiO2 70 07/10/24 06:10 Narrative Exam GENERAL: Adult male, nonverbal/bedbound unable to follow command, on high flow HEENT: Normocephalic, atraumatic. Pupils are equal and reactive. Oral mucosa is moist. NECK: Supple, nontender, no JVD CARDIOVASCULAR: Heart regular rhythm & rate. S1/S2. no murmur or gallop rub or extra beats. LUNGS: Clear to auscultation bilaterally with symmetrical chest rise. No laboring tachypnea or wheezing. No intercostal subcostal retraction. No rales and no rhonchi. ABDOMEN: Soft, flat, nontender to palpation, no guarding or rebound tenderness. Active and normal bowel sounds. G-tube in place NEURO: Alert but does not follow command, left upper hand contracture noted, bedbound PSYCHIATRIC: unable to access to patient medical condition Objective Labs 07/10/24 04:36 07/11/24 00:45 Labs: Laboratory Results - last 24 hr 07/09/24 07/09/24 07/09/24 14:27 14:38 14:42 WBC 32.2 H RBC 4.71 Hgb 12.2 L Hct 40.2 L MCV 85 MCH 25.9 MCHC 30.3 L RDW Std Deviation 51.8 H Plt Count 723 H Neut % (Auto) 90 H Lymph % (Auto) 6 L [place] % (Auto) 3 Eos % (Auto) 0 Baso % (Auto) 0 Neut # (Auto) 28.9 H Lymph # (Auto) 2.0 [place] # (Auto) 0.9 H Eos # (Auto) 0.1 Baso # (Auto) 0.1 Immature Gran # (Auto) 0.18 H Absolute Nucleated RBC 0.00 Immature Gran % 1 H Nucleated RBC % 0 Smear Path Review PT 13.0 H INR 1.2 APTT 29.9 Puncture Site Right Brachial ABG pH 7.47 H ABG pCO2 39 ABG pO2 54 L* ABG HCO3 29 H ABG O2 Saturation 89 L ABG Base Excess 5 H FiO2 100 Sodium 157 H Potassium 4.9 Chloride 119 H Carbon Dioxide 26.8 Anion Gap 11 BUN 100 H Creatinine 2.6 H Estim Creat Clear Calc 27.8 L eGFR 27 L BUN/Creatinine Ratio 38 H Glucose 515 H* Estimated Ave Glu mg/dL Hemoglobin A1c Calculated Osmolality 365 H Lactic Acid Calcium 9.4 Corrected Calcium 9.6 Phosphorus Magnesium 2.6 Total Bilirubin 0.2 L AST 19 ALT 37 Alkaline Phosphatase 91 Troponin I < 0.020 B-Natriuretic Peptide 52 Total Protein 7.8 Albumin 3.8 Globulin 4.0 H Albumin/Globulin Ratio 1.0 L Lipase 79 H Procalcitonin 1.38 H TSH Ur Collection Type Clean Catch Urine Color Yellow Urine Clarity Hazy Urine pH 6.0 Ur Specific [place] 1.023 Urine Protein 1+ A Urine Glucose (UA) 3+ A Urine Ketones Negative Urine Blood Negative Urine Nitrite Positive Urine Bilirubin Negative Urine Urobilinogen (Auto) Negative Ur Leukocyte Esterase Positive Urine RBC 7 H Urine WBC 62 H Ur Squamous Epith Cells 1 Urine Bacteria None Hyaline Casts < 1 07/09/24 07/09/24 07/09/24 14:44 18:09 22:03 WBC RBC Hgb Hct MCV MCH MCHC RDW Std Deviation Plt Count Neut % (Auto) Lymph % (Auto) [place] % (Auto) Eos % (Auto) Baso % (Auto) Neut # (Auto) Lymph # (Auto) [place] # (Auto) Eos # (Auto) Baso # (Auto) Immature Gran # (Auto) Absolute Nucleated RBC Immature Gran % Nucleated RBC % Smear Path Review PT INR APTT Puncture Site ABG pH ABG pCO2 ABG pO2 ABG HCO3 ABG O2 Saturation ABG Base Excess FiO2 Sodium Potassium Chloride Carbon Dioxide Anion Gap BUN Creatinine Estim Creat Clear Calc eGFR BUN/Creatinine Ratio Glucose Estimated Ave Glu mg/dL Hemoglobin A1c Calculated Osmolality Lactic Acid 2.3 H 2.5 H 2.2 H Calcium Corrected Calcium Phosphorus Magnesium Total Bilirubin AST ALT Alkaline Phosphatase Troponin I B-Natriuretic Peptide Total Protein Albumin Globulin Albumin/Globulin Ratio Lipase Procalcitonin TSH Ur Collection Type Urine Color Urine Clarity Urine pH Ur Specific [place] Urine Protein Urine Glucose (UA) Urine Ketones Urine Blood Urine Nitrite Urine Bilirubin Urine Urobilinogen (Auto) Ur Leukocyte Esterase Urine RBC Urine WBC Ur Squamous Epith Cells Urine Bacteria Hyaline Casts 07/09/24 07/10/24 07/10/24 22:07 01:06 01:27 WBC RBC Hgb Hct MCV MCH MCHC RDW Std Deviation Plt Count Neut % (Auto) Lymph % (Auto) [place] % (Auto) Eos % (Auto) Baso % (Auto) Neut # (Auto) Lymph # (Auto) [place] # (Auto) Eos # (Auto) Baso # (Auto) Immature Gran # (Auto) Absolute Nucleated RBC Immature Gran % Nucleated RBC % Smear Path Review PT INR APTT Puncture Site ABG pH ABG pCO2 ABG pO2 ABG HCO3 ABG O2 Saturation ABG Base Excess FiO2 Sodium 164 H* 166 H* Potassium 4.2 D Chloride 128 H* Carbon Dioxide 25.1 Anion Gap 11 BUN 86 H Creatinine 2.2 H Estim Creat Clear Calc 32.8 L eGFR 33 L BUN/Creatinine Ratio 39 H Glucose [address] Glu mg/dL Hemoglobin A1c Calculated Osmolality 358 H Lactic Acid 2.3 H Calcium 8.6 Corrected Calcium 9.2 Phosphorus 3.0 Magnesium Total Bilirubin AST ALT Alkaline Phosphatase Troponin I B-Natriuretic Peptide Total Protein Albumin 3.2 L D Globulin Albumin/Globulin Ratio Lipase Procalcitonin TSH 0.73 Ur Collection Type Urine Color Urine Clarity Urine pH Ur Specific [place] Urine Protein Urine Glucose (UA) Urine Ketones Urine Blood Urine Nitrite Urine Bilirubin Urine Urobilinogen (Auto) Ur Leukocyte Esterase Urine RBC Urine WBC Ur Squamous Epith Cells Urine Bacteria Hyaline Casts 07/10/24 04:36 WBC 36.4 H* RBC 3.94 L Hgb 10.6 L Hct 35.2 L MCV 89 MCH 26.9 MCHC 30.1 L RDW Std Deviation 55.0 H Plt Count 521 H D Neut % (Auto) 91 H Lymph % (Auto) 4 L [place] % (Auto) 3 Eos % (Auto) 1 Baso % (Auto) 0 Neut # (Auto) 33.1 H Lymph # (Auto) 1.4 [place] # (Auto) 1.1 H Eos # (Auto) 0.4 Baso # (Auto) 0.1 Immature Gran # (Auto) 0.31 H Absolute Nucleated RBC 0.00 Immature Gran % 1 H Nucleated RBC % 0 Smear Path Review Sent to Pathologist PT INR APTT Puncture Site ABG pH ABG pCO2 ABG pO2 ABG HCO3 ABG O2 Saturation ABG Base Excess FiO2 Sodium 170 H* Potassium 3.8 Chloride 130 H* Carbon Dioxide 26.4 Anion Gap 14 BUN 80 H Creatinine 2.1 H Estim Creat Clear Calc 26.6 L eGFR 35 L BUN/Creatinine Ratio 38 H Glucose [address] Glu mg/dL 200 H Hemoglobin A1c 8.6 H Calculated Osmolality 360 H Lactic Acid Calcium 9.6 Corrected Calcium 10.1 Phosphorus 2.9 Magnesium 2.4 Total Bilirubin 0.5 AST 18 ALT 35 Alkaline Phosphatase 78 Troponin I B-Natriuretic Peptide Total Protein 7.1 Albumin 3.4 Globulin 3.7 H Albumin/Globulin Ratio 0.9 L Lipase Procalcitonin TSH Ur Collection Type Urine Color Urine Clarity Urine pH Ur Specific [place] Urine Protein Urine Glucose (UA) Urine Ketones Urine Blood Urine Nitrite Urine Bilirubin Urine Urobilinogen (Auto) Ur Leukocyte Esterase Urine RBC Urine WBC Ur Squamous Epith Cells Urine Bacteria Hyaline Casts ABG Interpretation ABG results: 07/09/24 14:42 ABG pH 7.47 H ABG pCO2 39 ABG pO2 54 L* ABG HCO3 29 H ABG O2 Saturation 89 L ABG Base Excess 5 H Quality Measures Quality Measures none Assessment & Plan Assessment Current Active Medications: Generic Name Dose Route Start Last Admin Trade Name Freq PRN Reason Stop Dose Admin Acetaminophen 650 mg 07/10/24 00:32 Acetaminophen 325 Mg Tablet PO 08/09/24 00:31 Q4HR PRN PAIN SCALE 1-3 (mild Acetaminophen 650 mg 07/10/24 00:32 Acetaminophen Supp 650 Mg Supp SD 08/09/24 00:31 Q4HR PRN PAIN SCALE 1-3 (mild Al Hydrox/Mg Hydrox/Simethicone 30 ml 07/10/24 00:32 Mg Hyd/Al Hyd/Brittany (Maalox Reg) Susp 30 Ml Udc PO 08/09/24 00:31 Q4HR PRN Heartburn or Upset Stomach Albuterol/Ipratropium 3 ml 07/10/24 01:00 07/10/24 06:08 Albuterol/Ipratropium (Duoneb) Rt Erica 3 Ml Nebu INH 08/09/24 00:59 3 ml Q6HRRT TOOTIE Administration Apixaban 5 mg 07/10/24 09:00 Apixaban 2.5 Mg Tablet PO 07/31/24 08:59 BID TOOTIE Dextrose 25 ml 07/09/24 22:26 Dextrose 50%-Water Inj 50 Ml Syringe IV 08/08/24 22:25 Q15MIN PRN BG 50-70 responsive npo pt Dextrose 50 ml 07/09/24 22:26 Dextrose 50%-Water Inj 50 Ml Syringe IV 08/08/24 22:25 Q15MIN PRN BG <50 OR BG <70 & pt unresponsive Glucagon 1 mg 07/09/24 22:26 Glucagon Inj 1 Mg Vial IM Q15MIN PRN BG <70, and no IV access Doxycycline Hyclate 100 mg/ 100 mls @ 100 mls/hr 07/10/24 09:00 Sodium Chloride IV 07/16/24 22:29 BID [facility] Acetaminophen 1,000 mg in 100 mls @ 250 mls/hr 07/09/24 22:31 Ofirmev Inj IV 07/10/24 12:23 Q6HR PRN fever 100.5 Piperacillin Sod/Tazobactam 50 mls @ 12.5 mls/hr 07/10/24 14:00 Sod 3.375 gm/ Sodium Chloride IV 07/17/24 13:59 Q8HR TOOTIE Dextrose 1,000 mls @ 75 mls/hr 07/10/24 07:30 D5w IV 08/09/24 07:29 .[id number] [facility] Insulin Glargine 16 unit 07/10/24 09:00 Insulin Glargine (Lantus) 5 Unit/0.05 Ml (Per 5 Units) SC 08/09/24 08:59 QDAY [facility] Insulin Human Lispro 0 unit 07/09/24 23:00 07/09/24 23:42 Insulin Lispro (Admelog) 1 Unit/0.01 Ml Unit SC 08/08/24 22:59 2 unit ACHS [facility] Administration Protocol Magnesium Hydroxide 30 ml 07/10/24 00:32 Milk Of Magnesia Susp 30 Ml Udc PO 08/09/24 00:31 QDAY PRN CONSTIPATION Ondansetron HCl 4 mg 07/09/24 22:15 Ondansetron Inj 2 Mg/Ml Inj 2 Ml IV 08/08/24 22:14 Q6H PRN NAUSEA OR VOMITING Protocol Oxycodone/Acetaminophen 1 tab 07/09/24 22:45 Oxycodone/Apap 5/325 Tablet GT 07/14/24 22:44 Q6HR PRN PAIN Pantoprazole Sodium 40 mg 07/10/24 09:00 Pantoprazole Inj 40 Mg Vial IVP 08/09/24 08:59 QDAY [facility] Pharmacy Consult 1 each 07/09/24 22:23 Pharmacy Renal Dose Adjustment 1 Ea XX 08/08/24 22:22 PRN PRN CONSULT Plan 63 year old male patient with PMHx significant for MS, CVA with L/S hemiplegia, HTN, COPD, IDDM II, HLD, GERD, lower extremity contractures, who is also and bedridden, and non-verbal at baseline, BIBA from [facility] for complaints of shortness of breath, hypoxia for past 3 days. At ED patient's vitals were noted to be 115/80, HR 120, RR 25, T 101.5 with oxygen saturation of 81% on 15L OxyMask. Labs noted for WBC 32.2, Hgb 12.2, platelets 720, Na 164, Cl 128, Glucose 245, BUN 86, Cr 2.2, lactate of 2.2, procal of 1.4, and UA WBC 62. A/P CT showed significant left base pneumonia, bilateral nonobstructing renal calculi along with moderate hydronephrosis on the right side. Patient was started on Zosyn after receiving 2L of NS boluses at ED. Patient was initially admitted to the floor but was upgraded to ICU for further managment and care of sepsis secondary to PNA/ Pyelonephritis along with hypovolemic hypernatremia. 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 -Patient alert and able to protect airways. -No concern for stroke/bleed at this time. -was trying to follow commands. -F/U with long-term for baseline mental status. CVS #Severe sepsis 2/2 Pyelonephritis. #Lactic acidosis -Fluid resuscitated, maintaining MAP>65. -LA was 2.3 -Continue antibiotics with Zosyn and doxycycline. -F/U of BCx/UCX/sputum cultures- pending #Hx of PE on Eliquis -Continue home Eliquis bid -Hypoxia/tachycardia likely 2/2 sepsis -Low suspicion for new PE as patient is on Eliquis. -will continue patient's home Eliquis and consider CTA if condition declines despite sepsis resolved. Resp #Acute hypoxic respiratory failure on high flow NC In setting of sepsis 2/2 PNA -On HFNC 25L of 90% FiO2 -No pneumonia findings on CXR, CT scan shows Bibasilar pneumonia -Continue to monitor oxygen requirements and wean as tolerated. -Continue on doxycycline and Zosyn. -Follow-up BCx/UCX/sputum cultures and MRSA screen. Renal #Pylonephritis #BARBARA likely prerenal in setting of severe dehydration. #Bilateral nonobstructing renal calculi #Right hydronephrosis #Hypovolemic hypernatremia -Sodium checks every 3 hours. -Free water deficit calculated to be 1.1 L for nodium goal of 160 in 24 hr -Aim for correction rate of 10 mill equivalent/day -Correct first 24-hour water deficit by 20 ml/hr free water flushes with D5w @45 ml/hr -Nephrology Dr Gomez consulted, recommendations appreciated. ID #Sepsis 2/2 PNA/pyelonephritis----resolving -Fluid resuscitated, lactate improving, de-escalate antibiotics as warranted -F/U cultures Heme Prior baseline Hgb 9?10, PLT 250 #Anemia chronic disease #Leukocytosis 2/2 Pyelonephritis #Acute anemia/thrombocytosis in setting of severe dehydration Patient fluid resuscitated, follow-up a.m. CBC Endo #IDDM II -Maintain BG between 140-180 ideally -Patient started on ISS. -Continue home glargine 16 units daily -Prior HbA1c on 10/24 7.6, today 8.6 GI #PEG tube feeding. Dietary consulted , resume tube feeding with adjustments accordingly. DVT prophylaxis: Eliquis Diet: Tube feeding Hugo: + Lines: PIV, PEG tube CODE STATUS: Full code Reason for hospitalization/disposition: Sepsis 2/2 PNA- Pylonephritis- Hypernatremia Plan of care discussed with attending Dr.Ahmad Campos Meza MD,PGY-3 Attending Provider Attestation/Addendum Patient seen and examined with the above resident, Campos Meza MD. I agree with the findings, assessment, and plan of care as documented except for any difference below. Patient remains stable on HHHFNC slowly weaning down FiO2. Mentation does not appear to have improved to his baseline per report. Daughter is surrogate decision maker. Hypernatremia to be corrected by 10-12 in the next 24 hours, interim goal for tomorrow at [address] free water flushes and D5W via IV. Monitor serial Na to avoid overrapid correction. Continue on empiric antibiotics for infection. Ensure hugo was exchanged on arrival to the ED, appears to be one form out hospital. Monitor renal function. Can start on tube feeds. Continue on broad spectrum antibiotics with MRSA covered by doxycycline and zosyn for LIZZY. Adequate for both urinary and pulmonary sources at this time. Total critical care time: I personally spent 40 minutes for review of physiologic parameters, directing plan of care, and coordinaton of care with other specialists. This is exclusive of time spent teaching housestaff or performing any separate billable procedures. Patient remains at risk for further morbidity and mortality warranting close monitoring and care only available in the ICU. Pateint receving critical care services for acute hypoxic respiratory failure and hyperantremia with acute encephalopathy.
--- NOTE | 2024-07-10 08:42 | PC.SS ---
LITHOGRAPHED PLATE INSPECTOR informed by ICU resident need to obtain a copy of the patient's updated POLST form indicating that patient is DNR. LITHOGRAPHED PLATE INSPECTOR contacted [facility], no response. Message left requesting return call.
[2024-07-10 08:53] LABS: Sodium 166 mMol/L (136-145)
[2024-07-10] MEDS: DOXYCYCLINE INJ 100 MG in SODIUM CHLORIDE 0.9% (POP) 100 ML IV ×2 (09:05→20:22)
[2024-07-10] MEDS: PANTOPRAZOLE INJ 40 MG VIAL IVP (09:05)
[2024-07-10] MEDS: APIXABAN 2.5 MG TABLET 5 MG PO ×2 (09:06→20:32)
[2024-07-10] MEDS: INSULIN LISPRO (AdmeLOG) 1 UNIT/0.01 ML UNIT SC ×4 (09:06→23:10)
--- NOTE | 2024-07-10 09:51 | PC.SS ---
Addendum entered and electronically signed by DODIE Jacob 07/10/24 10:00: ADVERTISING SALES ASSISTANT informed patient's daughter, Veronica; that patient's code status is Full Code. Original Note: ADVERTISING SALES ASSISTANT conducted phone contact with patient's daughter, Veronica Cramer ; to confirm possession of medical POA. Patient's daughter confirmed possession of POA documentation. Patient's daughter to submit copy of POA to ADVERTISING SALES ASSISTANT via e-mail. Per daughter, medical POA; effective once patient is incapacitated and is unable to make own medical decisions. ADVERTISING SALES ASSISTANT updated ICU resident. Daughter requesting phone call with patient and ICU medical team to discuss Code Status with patient once the patient is no longer on high flow oxygen.
--- NOTE | 2024-07-10 10:16 | PC.SS ---
ACCOUNT ANALYST conducted phone contact with the patient?s daughter, Veronica Cramer to conduct initial assessment. Patient currently admitted to ICU on high flow oxygen.? Patient is a oil heat[place] resident of [facility].? Patient is bedbound.? Patient requires assistance with completion of ADL?s.? Patient?s medical surrogate decision maker is daughter, Veronica Cramer.? Patient?s PCP is Dr. Ferguson.? Plan is for the patient to return to [facility] upon discharge.? inpatient services rn to assist with arranging transportation on behalf of the patient.? No further intervention required at this time, social media coordinator will be available to address any further concerns.? Next of Kin: Veronica Shoaib D/C Plan: SNF
[2024-07-10] MEDS: INSULIN GLARGINE (Lantus) 5 UNIT/0.05 ML (PER 5 UNITS) 16 UNIT SC (10:40)
[2024-07-10] MEDS: DEXTROSE 5%-WATER 1,000 ML 45 ML IV (10:47)
[2024-07-10 10:51] LABS: Sodium 164 mMol/L (136-145)
[2024-07-10] MEDS: SODIUM CHLORIDE RT SOL 0.9% 3 ML NEBU INH ×4 (11:05→22:59)
[2024-07-10] MEDS: ALBUTEROL RT 2.5 MG/0.5 ML NEBU INH ×4 (11:06→22:59)
--- NOTE | 2024-07-10 11:10 | PC.DIETICIAN ---
Nutrition prescription Glucerna 1.2 at 25 ml/hr via PEG tube by pump. Advance 10 ml every 8 hrs to goal rate of 65 ml/hr x 24 hrs. If no IV fluids, water flushes of 25 ml/hr (or per MD).
[2024-07-10 12:41] LABS: Sodium 165 mMol/L (136-145)
[2024-07-10 17:03] LABS: Sodium 163 mMol/L (136-145)
[2024-07-10] MEDS: DEXTROSE 5%-WATER 1,000 ML 20 ML IV (17:16)
[2024-07-10] MEDS: ACETAMINOPHEN 325 MG TABLET 650 MG PO (17:43)
[2024-07-10 19:29] LABS: Sodium 163 mMol/L (136-145)
[2024-07-10 21:57] LABS: Potassium,Urine Random 67 mMol/L (12-62); Sodium,Urine Random 19.3 mMol/L (20.0-110.0)
[2024-07-10 22:08] LABS: Sodium 164 mMol/L (136-145)
[2024-07-11] VITALS (32 sets, daily range): BP systolic 111–157; BP diastolic 55–86; PULSE 91–117; RESP 10–44; TEMP 35.8–37.2; O2SAT 88–99; BMI 16.1
[2024-07-11 01:10] LABS: Sodium 164 mMol/L (136-145)
[2024-07-11] MEDS: ALBUTEROL RT 2.5 MG/0.5 ML NEBU INH ×6 (02:41→22:32)
[2024-07-11] MEDS: SODIUM CHLORIDE RT SOL 0.9% 3 ML NEBU INH ×4 (02:41→14:58)
[2024-07-11 03:34] LABS: Basophils # (Auto) 0.1 Thou/mm3 (0.0-0.2); Basophils % (Auto) 0 % (0-2.5); Eosinophils % (Auto) 0 % (0-10); Hematocrit 33.1 % (41.0-53.0); Immature Granulocytes % (Auto) 2 % (0-0); Immature Granulocytes Auto 0.67 Thou/mm3 (0.00-0.00); Lymphocytes # (Auto) 1.8 Thou/mm3 (1.0-4.8); Lymphocytes % (Auto) 4 % (10-50); Mean Corpuscular HGB Conc 30.2 g/dl (31.0-37.0); Mean Corpuscular Hemoglobin 26.3 pg (25.0-35.0); Mean Corpuscular Volume 87 fL (80-100); Monocytes # (Auto) 1.3 Thou/mm3 (0.0-0.8); Monocytes % (Auto) 3 % (0-12); Neutrophils # (Auto) 36.8 Thou/mm3 (1.8-7.7); Neutrophils % (Auto) 91 % (37-80); Nucleated Red Blood Cell % 0 /100 WBC (0); Platelet Count 459 Thou/mm3 (140-440); RDW Standard Deviation 53.3 fL (35.1-43.9)
[2024-07-11 03:39] LABS: White Blood Count 40.6 Thou/mm3 (3.8-10.6)
[2024-07-11 03:54] LABS: Alanine Aminotransferase 30 U/L (10-49); Albumin, Serum 3.2 gm/dL (3.4-4.8); Albumin/Globulin Ratio 0.9 (1.2-2.2); Alkaline Phosphatase 76 U/L (46-116); Anion Gap 14 (7-16); Aspartate Amino Transferase 14 U/L (0-34); BUN/Creatinine Ratio 31 Ratio (12-20); Bilirubin,Total 0.3 mg/dL (0.3-1.2); Blood Urea Nitrogen 74 mg/dL (9-23); Calcium 9.3 mg/dL (8.3-10.6); Calcium (Corrected) 9.9 mg/dL (8.5-10.1); Carbon Dioxide 21.8 mMol/L (20.0-31.0); Chloride 127 mMol/L (98-107); Creatinine (Component) 2.4 mg/dL (0.6-1.3); Estimated Creatinine Clearance 23.3 mL/min (>60); Globulin 3.6 gm/dL (2.3-3.5); Glucose 329 mg/dL (74-106); Osmolality,Calculated 357 (275-295); Phosphorous 1.7 mg/dL (2.4-5.1); Potassium 3.7 mMol/L (3.4-5.1); Total Protein 6.8 gm/dL (5.7-8.2); eGFR 30 See Note
[2024-07-11 03:56] LABS: Sodium 163 mMol/L (136-145)
[2024-07-11] MEDS: PIPER/TAZO INJ 3.375 GM in SODIUM CHLORIDE 0.9% (Popper) 50 ML IV (05:50)
[2024-07-11] MEDS: INSULIN LISPRO (AdmeLOG) 1 UNIT/0.01 ML UNIT SC ×3 (05:50→18:51)
[2024-07-11 07:20] LABS: Sodium 158 mMol/L (136-145)
--- NOTE | 2024-07-11 08:32 | XR_ITS ---
EXAMINATION: CT head/brain wo con ORDERING PROVIDER: Joan Gorman MD HISTORY: unequal pupils TECHNIQUE: CT scanner was used in the volumetric, helical non-contrast acquisition of the head with 2-D and 3-D reformats created on a separate workstation and submitted for interpretation. Institutional dose reducing protocols were utilized. Imaging is motion degraded. RADIATION DOSE: DLP 1033 mGy-cm COMPARISON: 12/21/2023, CT head FINDINGS: No acute intracranial hemorrhage, mass effect, or midline shift. There are extensive periventricular and subcortical white matter hypodensities again seen in the setting of mild to moderate parenchymal volume loss. New ill-defined decreased density in the left frontal lobe primarily affecting the superior gyrus, series 2 image 13. Again seen are multiple bilateral lacunar infarcts basal ganglia internal, and external capsules. Similar mild prominence of the ventricles. Basal cisterns are preserved. No hyperdense vessel sign. Orbits grossly unremarkable. Mild mucosal thickening left maxillary and right sphenoid sinus. Near complete opacification of the left sphenoid sinus with bubbly opacities. IMPRESSION: 1. No acute intracranial hemorrhage, mass effect, or midline shift. 2. Interval development of a left frontal lobe superior gyral ill-defined area of decreased density. Differential includes interval area of ischemic changes. MR is available as clinically indicated. 3. Background significant chronic small vessel ischemic changes and old lacunar infarcts. 4. Moderate inflammatory paranasal sinus mucosal disease.
[2024-07-11] MEDS: APIXABAN 2.5 MG TABLET 5 MG PO ×2 (08:37→20:45)
[2024-07-11] MEDS: INSULIN GLARGINE (Lantus) 5 UNIT/0.05 ML (PER 5 UNITS) 16 UNIT SC (08:38)
[2024-07-11] MEDS: DOXYCYCLINE INJ 100 MG in SODIUM CHLORIDE 0.9% (POP) 100 ML IV ×2 (08:38→20:45)
[2024-07-11] MEDS: PANTOPRAZOLE INJ 40 MG VIAL IVP (08:41)
[2024-07-11 10:03] LABS: Sodium 161 mMol/L (136-145)
--- NOTE | 2024-07-11 10:29 | ESCONSULT_ITS ---
HPI Data of Consult Requesting Physician: Smith Deshpande MD Admitting Provider: Sandeep Alcocer MD Attending Provider: Smith Deshpande MD Primary Care Provider: Cristian Ferguson MD Consult Narrative Reason for consult: BARBARA, hypernatremia History of present illness: Jamie Patiño is 63 yr male with PMH of MS, CVA with L/S hemiplegia, HTN, COPD, IDDM II, HLD, GERD, lower extremity contractures, who is also and bedridden, and non-verbal at baseline, BIBA from [facility] on 07/09/24 due to shortness of breath and hypoxia for past few days. Most history was obtained from chart review. At bedside he remains nonverbal. In ED, vitals significant for BP 115/80, tachycardic 120, RR 25, fever 101.5 with oxygen saturation of 81% on 15L OxyMask. Labs noted for WBC 32.2, Na 164, Cl 128, Glucose 245, BUN 86, Cr 2.2. A/P CT showed significant left base pneumonia, bilateral nonobstructing renal calculi along with moderate hydronephrosis on the right side. Nephrology was consutled for patient's BARBARA and hyperosmolar hypernatremia. cc:: cc: Smith Deshpande MD Review of Systems Review of Systems ROS Unobtainable: unobtainable due to mental status Exam Vital Signs Temp Pulse Resp BP Pulse Ox O2 Del Method O2 Flow Rate 98.9 F 104 H 44 H 143/74 H 96 High Flow Nasal Cannula 20 07/11/24 04:00 07/11/24 07:00 07/11/24 07:00 07/11/24 07:00 07/11/24 07:00 07/11/24 04:00 07/11/24 06:13 FiO2 45 07/11/24 06:13 Narrative Exam General:Adult male, nonverbal/bedbound unable to follow command, on high flow HEENT: NCAT, No JVD noted. Mucosa moist. Pupils are equal and reactive to light bilaterally Cardiovascular: Normal S1 and S2. Regular rate and rhythm. Respiratory: Lungs are clear to auscultation bilaterally. No wheezing or crackles heard. Abdomen: Soft, nontender, not distended, normal bowel sounds. Skin: Warm to touch, dry, no rashes noted Musculoskeletal: No gross injuries. No pitting edema Neuro: opens eyes to name, does not follow commands Psych: unable to assess Results Labs 07/13/24 04:32 07/13/24 16:17 Labs: Short CBC 07/11/24 Range/Units 03:17 WBC 40.6 H* (3.8-10.6) Thou/mm3 Hgb 10.0 L (13.5-16.0) g/dL Hct 33.1 L (41.0-53.0) % Plt Count 459 H D (140-440) Thou/mm3 BMP 07/10/24 07/10/24 07/10/24 09:36 12:06 16:45 Sodium 164 H* 165 H* 163 H* Potassium Chloride Carbon Dioxide BUN Creatinine Glucose Calcium 07/10/24 07/10/24 07/11/24 18:24 21:29 00:45 Sodium 163 H* 164 H* 164 H* Potassium Chloride Carbon Dioxide BUN Creatinine Glucose Calcium 07/11/24 07/11/24 07/11/24 03:17 06:50 09:23 Sodium 163 H* 158 H 161 H* Potassium 3.7 Chloride 127 H* Carbon Dioxide 21.8 BUN 74 H Creatinine 2.4 H Glucose 329 H D Calcium 9.3 Liver Function 07/11/24 Range/Units 03:17 Total Bilirubin 0.3 (0.3-1.2) mg/dL AST 14 (0-34) U/L ALT 30 (10-49) U/L Alkaline Phosphatase 76 (46-116) U/L Albumin 3.2 L (3.4-4.8) gm/dL ABG Interpretation ABG results: 07/09/24 14:42 ABG pH 7.47 H ABG pCO2 39 ABG pO2 54 L* ABG HCO3 29 H ABG O2 Saturation 89 L ABG Base Excess 5 H Quality Measures Quality Measures none Medications Home Medications and Allergies Home Medications ?Medication ?Instructions ?Recorded ?Confirmed ?Type bisacodyl 10 mg rectal suppository 10 mg AK Q72H PRN C onstipation 10/12/23 07/10/24 History (Dulcolax (bisacodyl)) ipratropium 0.5 mg-albuterol 3 mg 3 ml inhalation QID PRN Shortness 10/12/23 07/10/24 History (2.5 mg base)/3 mL nebulization Of Breath Or Wheezing soln magnesium hydroxide 400 mg/5 mL 30 ml PO Q72H PRN Cons tipation 10/12/23 07/10/24 History oral suspension (Milk of Magnesia) sodium phosphates 19 gram-7 118 ml AK Q72H PRN Constip ation 10/12/23 07/10/24 History gram/118 mL enema (Fleet Enema) azithromycin 250 mg tablet 250 mg feeding tube QDAY 07/10/24 History Respiratory Infection insulin glargine 100 unit/mL (3 16 unit subcut HS Diab etes 07/10/24 07/10/24 History mL) subcutaneous pen (Lantus Solostar U-100 Insulin) Allergies Allergy/AdvReac Type Severity Reaction Status Date / Time No Known Allergies Allergy Verified 10/16/22 11:35 Visit Medications Acetaminophen (Acetaminophen Supp 650 Mg Supp) 650 mg AK Q4HR PRN PRN Reason: PAIN SCALE 1-3 (mild Stop: 08/09/24 00:31 Acetaminophen (Acetaminophen 325 Mg Tablet) 650 mg PO Q4HR PRN PRN Reason: PAIN RATED 1-3OR FEVER > 101 Stop: 08/09/24 00:31 Last Admin: 07/10/24 17:43 Dose: 650 mg Al Hydrox/Mg Hydrox/Simethicone (Mg Hyd/Al Hyd/Brittany (Maalox Reg) Susp 30 Ml Udc) 30 ml PO Q4HR PRN PRN Reason: Heartburn or Upset Stomach Stop: 08/09/24 00:31 Albuterol (Albuterol Rt 2.5 Mg/0.5 Ml Nebu) 2.5 mg INH Q4HRRT TOOTIE Stop: 08/09/24 10:59 Last Admin: 07/11/24 06:09 Dose: 2.5 mg Apixaban (Apixaban 2.5 Mg Tablet) 5 mg PO BID TOOTIE Stop: 07/31/24 08:59 Last Admin: 07/11/24 08:37 Dose: 5 mg Dextrose (Dextrose 50%-Water Inj 50 Ml Syringe) 25 ml IV Q15MIN PRN PRN Reason: BG 50-70 responsive npo pt Stop: 08/08/24 22:25 Dextrose (Dextrose 50%-Water Inj 50 Ml Syringe) 50 ml IV Q15MIN PRN PRN Reason: BG <50 OR BG <70 & pt unresponsive Stop: 08/08/24 22:25 Glucagon (Glucagon Inj 1 Mg Vial) 1 mg IM Q15MIN PRN PRN Reason: BG <70, and no IV access Doxycycline Hyclate 100 mg/ (Sodium Chloride) 100 mls @ 100 mls/hr IV BID [facility] Stop: 07/16/24 22:29 Last Admin: 07/11/24 08:38 Dose: 100 mls/hr Piperacillin Sod/Tazobactam (Sod 3.375 gm/ Sodium Chloride) 50 mls @ 12.5 mls/hr IV Q8HR [facility] Stop: 07/11/24 12:00 Last Admin: 07/11/24 05:50 Dose: 12.5 mls/hr Dextrose (D5w) 1,000 mls @ 20 mls/hr IV .Q24H [facility] Stop: 08/09/24 17:10 Last Infusion: 07/10/24 18:00 Dose: 20 mls/hr Piperacillin/Tazobactam/Dextrose (Zosyn) 50 mls @ 12.5 mls/hr IV Q8HR [facility] Stop: 07/17/24 13:59 Insulin Glargine (Insulin Glargine (Lantus) 5 Unit/0.05 Ml (Per 5 Units)) 16 unit SC QDAY [facility] Stop: 08/09/24 08:59 Last Admin: 07/11/24 08:38 Dose: 16 unit Insulin Human Lispro (Insulin Lispro (Admelog) 1 Unit/0.01 Ml Unit) 0 unit SC Q6HR [facility]; Protocol Stop: 08/10/24 00:00 Last Admin: 07/11/24 05:50 Dose: 4 unit Magnesium Hydroxide (Milk Of Magnesia Susp 30 Ml Udc) 30 ml PO QDAY PRN PRN Reason: CONSTIPATION Stop: 08/09/24 00:31 Ondansetron HCl (Ondansetron Inj 2 Mg/Ml Inj 2 Ml) 4 mg IV Q6H PRN; Protocol PRN Reason: NAUSEA OR VOMITING Stop: 08/08/24 22:14 Oxycodone/Acetaminophen (Oxycodone/Apap 5/325 Tablet) 1 tab GT Q6HR PRN PRN Reason: PAIN SCALE 4-10(Mod-Sev Stop: 07/14/24 22:44 Pantoprazole Sodium (Pantoprazole Inj 40 Mg Vial) 40 mg IVP QDAY [place]OTIE Stop: 08/09/24 08:59 Last Admin: 07/11/24 08:41 Dose: 40 mg Pharmacy Consult (Pharmacy Renal Dose Adjustment 1 Ea) 1 each XX PRN PRN PRN Reason: CONSULT Stop: 08/08/24 22:22 Sodium Chloride (Sodium Chloride Rt Erica 0.9% 3 Ml Nebu) 3 ml INH PRN PRN PRN Reason: SOLN Stop: 08/09/24 10:39 Last Admin: 07/11/24 06:09 Dose: 3 ml Discontinued Medications Acetaminophen (Acetaminophen Supp 650 Mg Supp) 650 mg AK X1 ONE Stop: 07/09/24 14:50 Last Admin: 07/09/24 15:13 Dose: 650 mg Acetaminophen (Acetaminophen 325 Mg Tablet) 650 mg PO Q4HR PRN PRN Reason: PAIN SCALE 1-3 (mild Stop: 08/09/24 00:31 Albuterol/Ipratropium (Albuterol/Ipratropium (Duoneb) Rt Erica 3 Ml Nebu) 3 ml INH Q6HRRT TOOTIE Stop: 08/09/24 00:59 Last Admin: 07/10/24 06:08 Dose: 3 ml Bisacodyl (Bisacodyl 5 Mg Tabec) 10 mg PO QDAY PRN; Protocol PRN Reason: CONSTIPATION Stop: 08/08/24 22:14 Sodium Chloride (Ns) 1,000 mls @ 999 mls/hr IV .Q1H1M ONE Stop: 07/09/24 15:49 Last Infusion: 07/09/24 16:15 Dose: Infused Piperacillin Sod/Tazobactam (Sod 3.375 gm/ Sodium Chloride) 50 mls @ 100 mls/hr IV X1 ONE Stop: 07/09/24 16:51 Last Infusion: 07/09/24 17:21 Dose: Infused Sodium Chloride (Ns) 1,000 mls @ 999 mls/hr IV .Q1H1M ONE Stop: 07/09/24 17:23 Last Infusion: 07/09/24 18:01 Dose: Infused Vancomycin/Sodium Chloride (Vancomycin/Ns 1 Gm Ivpb) 200 mls @ 120 mls/hr IV X1 ONE Stop: 07/09/24 20:09 Last Infusion: 07/09/24 20:16 Dose: Infused Piperacillin Sod/Tazobactam (Sod 4.5 gm/ Sodium Chloride) 100 mls @ 200 mls/hr IV Q6HR [facility] Stop: 07/16/24 22:23 Last Admin: 07/10/24 21:19 Dose: Not Given Piperacillin/Tazobactam/Dextrose (Zosyn) 50 mls @ 100 mls/hr IV X1 ONE Stop: 07/09/24 23:14 Last Admin: 07/10/24 00:14 Dose: Not Given Acetaminophen (Ofirmev Inj) 1,000 mg in 100 mls @ 250 mls/hr IV Q6HR PRN PRN Reason: fever 100.5 Stop: 07/10/24 12:23 Doxycycline Hyclate 100 mg/ (Sodium Chloride) 100 mls @ 100 mls/hr IV X1 ONE Stop: 07/09/24 23:44 Last Infusion: 07/10/24 00:06 Dose: Infused Piperacillin Sod/Tazobactam (Sod 3.375 gm/ Sodium Chloride) 50 mls @ 100 mls/hr IV X1 ONE Stop: 07/10/24 00:40 Last Admin: 07/10/24 00:13 Dose: 100 mls/hr Piperacillin/Tazobactam/Dextrose 3.375 gm/ Sodium Chloride 150 mls @ 300 mls/hr IV Q8HR [facility]; Protocol Stop: 07/16/24 22:23 Piperacillin/Tazobactam/Dextrose (Zosyn) 50 mls @ 12.5 mls/hr IV Q8HR [facility] Stop: 07/16/24 22:23 Piperacillin Sod/Tazobactam (Sod 3.375 gm/ Sodium Chloride) 50 mls @ 12.5 mls/hr IV Q8HR [facility] Stop: 07/17/24 05:24 Last Admin: 07/10/24 05:58 Dose: 12.5 mls/hr Dextrose (D5w) 1,000 mls @ 75 mls/hr IV .[id number] [facility] Stop: 08/09/24 07:29 Last Admin: 07/10/24 21:19 Dose: Not Given Dextrose (D5w) 1,000 mls @ 45 mls/hr IV .[id number] [place] Stop: 08/09/24 09:51 Last Infusion: 07/10/24 17:16 Dose: 0 mls/hr Insulin Human Lispro (Insulin Lispro (Admelog) 1 Unit/0.01 Ml Unit) 0 unit SC AC [facility]; Protocol Stop: 08/09/24 07:29 Insulin Human Lispro (Insulin Lispro (Admelog) 1 Unit/0.01 Ml Unit) 0 unit SC ACHS [facility]; Protocol Stop: 08/08/24 22:59 Last Admin: 07/10/24 17:25 Dose: 4 unit Insulin Human Regular (Insulin Hum Regular 1 Unit/0.01 Ml (Per Unit)) 5 unit IV X1 ONE Stop: 07/09/24 16:21 Last Admin: 07/09/24 16:25 Dose: 5 unit Insulin Human Regular (Insulin Hum Regular 1 Unit/0.01 Ml (Per Unit)) 5 unit SC X1 ONE Stop: 07/09/24 16:59 Last Admin: 07/09/24 18:15 Dose: Not Given Lactulose (Lactulose Syrup 20 Gm/30 Ml Udc) 10 gm PO X1 ONE; Protocol Stop: 07/09/24 22:44 Last Admin: 07/09/24 23:42 Dose: Not Given Lactulose (Lactulose Syrup 20 Gm/30 Ml Udc) 10 gm GT X1 ONE; Protocol Stop: 07/09/24 22:46 Last Admin: 07/09/24 23:41 Dose: 10 gm Oxycodone/Acetaminophen (Oxycodone/Apap 5/325 Tablet) 1 tab PO Q6H PRN PRN Reason: PAIN SCALE 4-6 (Moderate Stop: 07/14/24 22:14 Oxycodone/Acetaminophen (Oxycodone/Apap 5/325 Tablet) 1 tab GT Q6HR PRN PRN Reason: PAIN Stop: 07/14/24 22:44 Sodium Chloride (Sodium Chloride Rt 10% 15 Ml Nebu) 5 ml INH X1 ONE Stop: 07/10/24 02:02 Last Admin: 07/10/24 21:19 Dose: Not Given Assessment & Plan Plan Jamie Patiño is 63 yr male with PMH of MS, CVA with L/S hemiplegia, HTN, COPD, IDDM II, HLD, GERD, lower extremity contractures, who is also and bedridden, and non-verbal at baseline, BIBA from [facility] on 07/09/24 due to shortness of breath and hypoxia for past few days. Most history was obtained from chart review. At bedside he remains nonverbal. Nephrology was consutled for patient's BARBARA and hyperosmolar hypernatremia. #Hyperosmolar hypernatremia #BARBARA Initially presented with sodium of 165, BUN 86, Cr 2.2. Patient was started on D5W 45cc/hr and free water flushes 20cc/hr. Most likely due to poor oral intake and dehydration along with setting of patient's sepsis leading to hypoperfusion. Currently BUN/Cr 31 indicating pre renal etiology. -Goal sodium over next 24 hrs ~148. -Sodium checks every 3 hours -Free water deficit calculated to be 1.7 L for goal above -continue correction with D5W maintainence and free water flushes as needed -avoid nephrotoxic agents -daily CMP #Bilateral nonobstructing renal calculi #Right hydronephrosis #Acute metabolic encephalopathy 2/2 hypernatremia and sepsis #Severe sepsis 2/2 Pyelonephritis #Lactic acidosis #Hx of PE on Eliquis #Acute hypoxic respiratory failure on high flow NC #Pylonephritis #Anemia chronic disease #Leukocytosis 2/2 Pyelonephritis #Acute anemia/thrombocytosis in setting of severe dehydration #IDDM II #PEG tube feeding -Continue care as per primary care team. The patient's management plan was discussed with my attending physician Dr. Gomez. Louann Rucker, PGY-1 Attending Provider Attestation/Addendum Pt seen and examined. Labs are reviewed. Discussed plan with resident. Notes by resident reviewed. Agree with assessment and plan Ludwig Gomez MD
--- NOTE | 2024-07-11 10:48 | CHAP ---
Patient was visited by a Spiritual Care volunteer on 07/11/2024 between 0900 and 0943 and received comfort, encouragement, and/or prayer.
--- NOTE | 2024-07-11 12:06 | PD.RESPRO ---
Documentation for date of: 07/11/24 Subjective Subjective Interval history: Patient was seen and examined. Patient was on 20 cc/h D5W along with 20 cc free water flushes through PEG tube, however sodium level was 164, overnight increased free water flushes 125 cc/h. Sodium level was corrected to 158 with glucose of about 300. Decision was made to increase free water flushes to 150 cc/h, increase D5W to 45 cc/h, with a goal of to correct sodium 8 mEq in 24 hours. We changed the sodium check to every 4 hours, continue closely monitor, avoid overcorrection. WBC trended up, currently is 40.6, urine culture grew GNR, blood cultures negative in 24-hour, sputum Gram stain positive for GNR and GPC, culture ARE still pending. Patient is on doxycycline and Zosyn to cover bilateral pneumonia and pyelonephritis. Respiratory status is improving, patient is off from high flow nasal cannula currently is on 2 L nasal cannula saturating 99%. Kidney function about the same, 2.4 creatinine, with a BUN of 74, continue correction of hyponatremia, evaluate mental status, Dr. Mcfadden is on board, recommendations appreciated. Overnight nurse noted that left pupil was a little bit dilated compared to the right, CT head was ordered, which revealed no acute hemorrhage, however showed Interval development of a left frontal lobe superior gyral ill-defined area of decreased density. Differential includes interval area of ischemic changes.MR is available as clinically indicated. Background significant chronic small vessel ischemic changes and old lacunar infarcts. Moderate inflammatory paranasal sinus mucosal disease. MRI was ordered, please follow the results. Exam Vital Signs Temp Pulse Resp BP Pulse Ox O2 Del Method O2 Flow Rate 98.9 F 94 26 H 143/74 H 95 High Flow Nasal Cannula 10 07/11/24 04:00 07/11/24 11:31 07/11/24 11:31 07/11/24 07:00 07/11/24 11:31 07/11/24 04:00 07/11/24 11: FiO2 45 07/11/24 06:13 Narrative Exam GENERAL: no acute distress, laying in bed, moving eyes following voice, however unknown baseline, HEENT: Head AT/ NC. Mucous membranes moist. Left pupil slightly dilated compared to right, both are reactive to light NECK: Supple, no lymphadenopathy, no carotid bruits. CARDIOVASCULAR: Normal S1/S2, No m/r/g. No pitting edema of bilateral LEs. RESPIRATORY: Mild bilateral crackles on left base, on nasal cannula 2 L saturating 99%. GASTROINTESTINAL: Abdomen soft, non tender no palpable masses. Bowel sounds present in all 4 quadrants. PEG noted MUSCULOSKELETAL:? No cyanosis or edema, no visible joint swelling. Bilateral contracture of upper and lower extremities INTEGUMENTARY: No obvious rashes, no jaundice, normal turgor. Objective Labs 07/12/24 03:24 07/12/24 07:52 Labs: Laboratory Results - last 24 hr 07/10/24 07/10/24 07/10/24 12:06 16:45 18:24 WBC RBC Hgb Hct MCV MCH MCHC RDW Std Deviation Plt Count Neut % (Auto) Lymph % (Auto) [place] % (Auto) Eos % (Auto) Baso % (Auto) Neut # (Auto) Lymph # (Auto) [place] # (Auto) Eos # (Auto) Baso # (Auto) Immature Gran # (Auto) Absolute Nucleated RBC Immature Gran % Nucleated RBC % Smear Path Review Sodium 165 H* 163 H* 163 H* Potassium Chloride Carbon Dioxide Anion Gap BUN Creatinine Estim Creat Clear Calc eGFR BUN/Creatinine Ratio Glucose Calculated Osmolality Calcium Corrected Calcium Phosphorus Magnesium Total Bilirubin AST ALT Alkaline Phosphatase Total Protein Albumin Globulin Albumin/Globulin Ratio Ur Random Sodium Ur Random Potassium 07/10/24 07/10/24 07/11/24 20:30 21:29 00:45 WBC RBC Hgb Hct MCV MCH MCHC RDW Std Deviation Plt Count Neut % (Auto) Lymph % (Auto) [place] % (Auto) Eos % (Auto) Baso % (Auto) Neut # (Auto) Lymph # (Auto) [place] # (Auto) Eos # (Auto) Baso # (Auto) Immature Gran # (Auto) Absolute Nucleated RBC Immature Gran % Nucleated RBC % Smear Path Review Sodium 164 H* 164 H* Potassium Chloride Carbon Dioxide Anion Gap BUN Creatinine Estim Creat Clear Calc eGFR BUN/Creatinine Ratio Glucose Calculated Osmolality Calcium Corrected Calcium Phosphorus Magnesium Total Bilirubin AST ALT Alkaline Phosphatase Total Protein Albumin Globulin Albumin/Globulin Ratio Ur Random Sodium 19.3 L Ur Random Potassium 67 H 07/11/24 07/11/24 07/11/24 03:17 06:50 09:23 WBC 40.6 H* RBC 3.80 L Hgb 10.0 L Hct 33.1 L MCV 87 MCH 26.3 MCHC 30.2 L RDW Std Deviation 53.3 H Plt Count 459 H D Neut % (Auto) 91 H Lymph % (Auto) 4 L [place] % (Auto) 3 Eos % (Auto) 0 Baso % (Auto) 0 Neut # (Auto) 36.8 H Lymph # (Auto) 1.8 [place] # (Auto) 1.3 H Eos # (Auto) 0.0 Baso # (Auto) 0.1 Immature Gran # (Auto) 0.67 H Absolute Nucleated RBC 0.00 Immature Gran % 2 H Nucleated RBC % 0 Smear Path Review Sodium 163 H* 158 H 161 H* Potassium 3.7 Chloride 127 H* Carbon Dioxide 21.8 Anion Gap 14 BUN 74 H Creatinine 2.4 H Estim Creat Clear Calc 23.3 L eGFR 30 L BUN/Creatinine Ratio 31 H Glucose 329 H D Calculated Osmolality 357 H Calcium 9.3 Corrected Calcium 9.9 Phosphorus 1.7 L Magnesium 2.0 Total Bilirubin 0.3 AST 14 ALT 30 Alkaline Phosphatase 76 Total Protein 6.8 Albumin 3.2 L Globulin 3.6 H Albumin/Globulin Ratio 0.9 L Ur Random Sodium Ur Random Potassium ABG Interpretation ABG results: 07/09/24 14:42 ABG pH 7.47 H ABG pCO2 39 ABG pO2 54 L* ABG HCO3 29 H ABG O2 Saturation 89 L ABG Base Excess 5 H Quality Measures Quality Measures none Assessment & Plan Assessment Current Active Medications: Generic Name Dose Route Start Last Admin Trade Name Freq PRN Reason Stop Dose Admin Acetaminophen 650 mg 07/10/24 00:32 Acetaminophen Supp 650 Mg Supp MN 08/09/24 00:31 Q4HR PRN PAIN SCALE 1-3 (mild Acetaminophen 650 mg 07/10/24 17:23 07/10/24 17:43 Acetaminophen 325 Mg Tablet PO 08/09/24 00:31 650 mg Q4HR PRN Administration PAIN RATED 1-3OR FEVER > 101 Al Hydrox/Mg Hydrox/Simethicone 30 ml 07/10/24 00:32 Mg Hyd/Al Hyd/Brittany (Maalox Reg) Susp 30 Ml Udc PO 08/09/24 00:31 Q4HR PRN Heartburn or Upset Stomach Albuterol 2.5 mg 07/10/24 11:00 07/11/24 11:31 Albuterol Rt 2.5 Mg/0.5 Ml Nebu INH 08/09/24 10:59 2.5 mg Q4HRRT TOOTIE Administration Apixaban 5 mg 07/10/24 09:00 07/11/24 08:37 Apixaban 2.5 Mg Tablet PO 07/31/24 08:59 5 mg BID TOOTIE Administration Dextrose 25 ml 07/09/24 22:26 Dextrose 50%-Water Inj 50 Ml Syringe IV 08/08/24 22:25 Q15MIN PRN BG 50-70 responsive npo pt Dextrose 50 ml 07/09/24 22:26 Dextrose 50%-Water Inj 50 Ml Syringe IV 08/08/24 22:25 Q15MIN PRN BG <50 OR BG <70 & pt unresponsive Glucagon 1 mg 07/09/24 22:26 Glucagon Inj 1 Mg Vial IM Q15MIN PRN BG <70, and no IV access Doxycycline Hyclate 100 mg/ 100 mls @ 100 mls/hr 07/10/24 09:00 07/11/24 08:38 Sodium Chloride IV 07/16/24 22:29 100 mls/hr BID TOOTIE Administration Dextrose 1,000 mls @ 20 mls/hr 07/10/24 17:11 07/10/24 18:00 D5w IV 08/09/24 17:10 20 mls/hr .Q24H TOOTIE Infusion Piperacillin/Tazobactam/Dextrose 50 mls @ 12.5 mls/hr 07/11/24 14:00 Zosyn IV 07/17/24 13:59 Q8HR TOOTIE Insulin Glargine 16 unit 07/10/24 09:00 07/11/24 08:38 Insulin Glargine (Lantus) 5 Unit/0.05 Ml (Per 5 Units) SC 08/09/24 08:59 16 unit QDAY TOOTIE Administration Insulin Human Lispro 0 unit 07/11/24 00:00 07/11/24 05:50 Insulin Lispro (Admelog) 1 Unit/0.01 Ml Unit SC 08/10/24 00:00 4 unit Q6HR TOOTIE Administration Protocol Magnesium Hydroxide 30 ml 07/10/24 00:32 Milk Of Magnesia Susp 30 Ml Udc PO 08/09/24 00:31 QDAY PRN CONSTIPATION Ondansetron HCl 4 mg 07/09/24 22:15 Ondansetron Inj 2 Mg/Ml Inj 2 Ml IV 08/08/24 22:14 Q6H PRN NAUSEA OR VOMITING Protocol Oxycodone/Acetaminophen 1 tab 07/11/24 08:25 Oxycodone/Apap 5/325 Tablet GT 07/14/24 22:44 Q6HR PRN PAIN SCALE 4-10(Mod-Sev Pantoprazole Sodium 40 mg 07/10/24 09:00 07/11/24 08:41 Pantoprazole Inj 40 Mg Vial IVP 08/09/24 08:59 40 mg QDAY TOOTIE Administration Pharmacy Consult 1 each 07/09/24 22:23 Pharmacy Renal Dose Adjustment 1 Ea XX 08/08/24 22:22 PRN PRN CONSULT Sodium Chloride 3 ml 07/10/24 10:40 07/11/24 11:31 Sodium Chloride Rt Erica 0.9% 3 Ml Nebu INH 08/09/24 10:39 3 ml PRN PRN Administration SOLN Plan 63 year old male patient with PMHx significant for MS, CVA with L/S hemiplegia, HTN, COPD, IDDM II, HLD, GERD, lower extremity contractures, who is also and bedridden, and non-verbal at baseline, BIBA from [facility] for complaints of shortness of breath, hypoxia for past 3 days. At ED patient's vitals were noted to be 115/80, HR 120, RR 25, T 101.5 with oxygen saturation of 81% on 15L OxyMask. Labs noted for WBC 32.2, Hgb 12.2, platelets 720, Na 164, Cl 128, Glucose 245, BUN 86, Cr 2.2, lactate of 2.2, procal of 1.4, and UA WBC 62. A/P CT showed significant left base pneumonia, bilateral nonobstructing renal calculi along with moderate hydronephrosis on the right side. Patient was started on Zosyn after receiving 2L of NS boluses at ED. Patient was initially admitted to the floor but was upgraded to ICU for further managment and care of sepsis secondary to PNA/ Pyelonephritis along with hypovolemic hypernatremia. 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 -Patient able to protect airways. -Partially to follow commands. Unknown baseline -[facility]. -Follow-up with MRI CVS #Severe sepsis 2/2 Pyelonephritis and bilateral PNA #Lactic acidosis - maintaining MAP>65. -LA was 2.4, continue IVF along with free water flushes -Blood culture preliminary negative, urine culture grew GNR, Resp #Acute hypoxic respiratory failure secondary to PNA resolved Patient is weaned off from high flow nasal cannula, currently saturating 96%. 2 L nasal cannula -No pneumonia findings on CXR, CT scan shows Bibasilar pneumonia -Continue to monitor oxygen requirements -Continue on doxycycline and Zosyn. -Sputum Gram stain showed GNR and GPC, could be contamination, follow with sputum culture #Hx of PE on Eliquis -Continue home Eliquis bid -Low suspicion for new PE as patient is on Eliquis. -will continue patient's home Eliquis and consider CTA if condition declines despite sepsis resolved. Renal #Pylonephritis #BARBARA likely prerenal in setting of severe dehydration. #Bilateral nonobstructing renal calculi #Right hydronephrosis #Hypovolemic hypernatremia -Sodium checks every 4-hour -Sodium goal is to correct 8 mEq in next 24 hours -Close monitor corrected sodium based on the glucose, -Avoid overcorrection, -Increased free water flushes 250 cc/h along with D5 W40 5 cc/h, monitor urine output -Calculate free water deficit daily based on results, regulate IVF and water flushes -Nephrology Dr Gomez consulted, recommendations appreciated. ID #Sepsis 2/2 PNA/pyelonephritis versus WBC up trended, currently is 40.6, will continue antibiotic, -Continue antibiotics, IVF, -F/U cultures Heme Prior baseline Hgb 9?10, PLT 250 #Anemia chronic disease #Leukocytosis 2/2 Pyelonephritis/PNA #Acute anemia/thrombocytosis in setting of severe dehydration Patient fluid resuscitated, follow-up a.m. CBC Endo #IDDM II -Maintain BG between 140-180 ideally -Patient started on ISS. -Continue home glargine 16 units daily, overnight patient received additional 16 units of sliding scale, adjust according -Prior HbA1c on 10/24 7.6, today 8.6 GI #PEG tube feeding. Dietary consulted , resume tube feeding with a goal of 65/h, currently running 35 mL/h with a 150 cc free water flushes every hour with adjustments accordingly. DVT prophylaxis: Eliquis Diet: Tube feeding Marr: + Lines: PIV, PEG tube CODE STATUS: Full code Patient care was discussed with attending physician Dr. Timmy Gorman MD PGY-2 Attending Provider Attestation/Addendum pt seen and examined with resident. In brief this is a 63yo M with h/o MS and CVA who resides in a NH brought in for AMS. pt was found to be hyperNa and started on free water and D5 with Na q4 draws. On exam he is contracted, nonverbal, with dry oral mucosa, lungs diminished with occasional crackles, HRRR, abd s/nt/bs+. pt noted to be on HFNC and we were able to titrate down to 10lt. CXR noted to have infiltrate and on abx for PNA, continue pulmonary toilette and CPT. currently tolerating tube feeds. stable for downgrade. case d/w ICU team labs, imaging, records reviewed ~37min required for eval, exam, review, intervention, discussion and formulation of POC for this pt with AMS and hyperNa
[2024-07-11 12:16] LABS: Sodium 158 mMol/L (136-145)
[2024-07-11] MEDS: PIPER/TAZO 3.375 GM PREMIX 50 ML IV ×2 (14:19→22:04)
[2024-07-11 16:15] LABS: Sodium 158 mMol/L (136-145)
--- NOTE | 2024-07-11 16:56 | ESPR_ITS ---
<Statement entered by Josué Ruff MD - 07/11/24 17:06> ICU downgrade: This 63 year old male patient with PMHx significant for MS, CVA with L/S hemiplegia, HTN, COPD, IDDM II, HLD, GERD, lower extremity contractures, who is also and bedridden, and non-verbal at baseline, BIBA from [facility] for complaints of shortness of breath, hypoxia for past 3 days. At ED patient's vitals were noted to be 115/80, HR 120, RR 25, T 101.5 with oxygen saturation of 81% on 15L OxyMask. Labs noted for WBC 32.2, Hgb 12.2, platelets 720, Na 164, Cl 128, Glucose 245, BUN 86, Cr 2.2, lactate of 2.2, procal of 1.4, and UA WBC 62. A/P CT showed significant left base pneumonia, bilateral nonobstructing renal calculi along with moderate hydronephrosis on the right side. Patient was started on Zosyn after receiving 2L of NS boluses at ED. Patient was initially admitted to the floor but was upgraded to ICU for further managment and care of acute encephalopathy due to severe sepsis secondary to PNA/ Pyelonephritis along with hypovolemic hypernatremia. Patient is downgraded to floors as sodium has been improving. F or sodium correction, ICU team changed to rate of D5W 45 cc/h and water flushes 150 cc/h. Goal of correction is 8 mEq in first 24 hours. By the night correction goal is 153. Denies sodium checks Q4 hourly. WBCs continues to uptrend, urine culture grew GNR blood cultures negative x 24 hours. Sputum Gram stain positive for GNR and GPC final cultures pending. Currently patient is being managed on doxycycline and Zosyn to cover bilateral pneumonia and pyelonephritis. Patient is off from high flow nasal cannula and respiratory pathology has improved. Kidney functions consistent with creatinine 2.4 and BUN 74. Nephrology is following the case for CKD and hyponatremia. Due to change in pupil size on the left side ICU team ordered head CT which was negative and only showed areas of decreased density. Chronic small vessel ischemic changes with old lacunar infarct were also seen. MRI brain to be followed up. I saw and examined the patient, and I agree with current management stated by Dr Cabrera MD,PGY1. Plan of care was discussed with the attending physician and resident physician. Disclaimer: Despite multiple revisions, due to the dictation software being used, the document bellow may not be free of grammatical errors including phonetic/typographic errors. However, this does not deter from our commitment to providing health care in the patient's best interest in mind. Dr. Elzbieta MD, PGY 2 Documentation for date of: Mr. Patiño is a 63-year-old with past medical history significant for multiple sclerosis, history of CVA with left-sided hemiplegia, hypertension, COPD, type 2 diabetes, hyperlipidemia, GERD was admitted to the ICU on 07/09 from half-way facility due to shortness of breath and hypoxia. Patient is now hemodynamically stable to be downgraded to floors. Patient was also found to have severe sepsis secondary to pneumonia and pyelonephritis as well as patient was found to have hypernatremia with initial sodium of 164. In the ICU patient remained on antibiotics and D5 W with water flushes the most recent sodium is 158 and goal is 153 5 tonight. Patient is seen and examined in the ICU, patient's eyes are open and stares and does not follow any commands nor follows my voice. Patient is currently saturating via oxy mask. Subjective Subjective Interval history: GENERAL: Not in acute distress, saturating via oxymask NEURO: no focal neurological deficits HEENT: Atraumatic, Normocephalic. mucous membranes moist. Eyes open, symmetrical, & clear HEART: Normal Heart Sounds LUNGS: crackles at the base of lungs ABDOMEN: soft, non-distended, non-tender, bowel sounds heard, no guarding or rebound tenderness SKIN: No Rash or ecchymoses EXTREMITIES: contracted upper and lower extremities Exam Vital Signs Temp Pulse Resp BP Pulse Ox O2 Del Method O2 Flow Rate 98.9 F 95 25 H 150/71 H 96 High Flow Nasal Cannula 10 07/11/24 04:00 07/11/24 15:01 07/11/24 15:01 07/11/24 14:00 07/11/24 15:01 07/11/24 04:00 07/11/24 15:01 FiO2 45 07/11/24 06:13 Objective Labs 07/12/24 03:24 07/12/24 11:30 Labs: Laboratory Results - last 24 hr 07/10/24 07/10/24 07/10/24 16:45 18:24 20:30 WBC RBC Hgb Hct MCV MCH MCHC RDW Std Deviation Plt Count Neut % (Auto) Lymph % (Auto) Wood % (Auto) Eos % (Auto) Baso % (Auto) Neut # (Auto) Lymph # (Auto) [place] # (Auto) Eos # (Auto) Baso # (Auto) Immature Gran # (Auto) Absolute Nucleated RBC Immature Gran % Nucleated RBC % Smear Path Review Sodium 163 H* 163 H* Potassium Chloride Carbon Dioxide Anion Gap BUN Creatinine Estim Creat Clear Calc eGFR BUN/Creatinine Ratio Glucose Calculated Osmolality Calcium Corrected Calcium Phosphorus Magnesium Total Bilirubin AST ALT Alkaline Phosphatase Total Protein Albumin Globulin Albumin/Globulin Ratio Ur Random Sodium 19.3 L Ur Random Potassium 67 H 07/10/24 07/11/24 07/11/24 21:29 00:45 03:17 WBC 40.6 H* RBC 3.80 L Hgb 10.0 L Hct 33.1 L MCV 87 MCH 26.3 MCHC 30.2 L RDW Std Deviation 53.3 H Plt Count 459 H D Neut % (Auto) 91 H Lymph % (Auto) 4 L [place] % (Auto) 3 Eos % (Auto) 0 Baso % (Auto) 0 Neut # (Auto) 36.8 H Lymph # (Auto) 1.8 Wood # (Auto) 1.3 H Eos # (Auto) 0.0 Baso # (Auto) 0.1 Immature Gran # (Auto) 0.67 H Absolute Nucleated RBC 0.00 Immature Gran % 2 H Nucleated RBC % 0 Smear Path Review Sodium 164 H* 164 H* 163 H* Potassium 3.7 Chloride 127 H* Carbon Dioxide 21.8 Anion Gap 14 BUN 74 H Creatinine 2.4 H Estim Creat Clear Calc 23.3 L eGFR 30 L BUN/Creatinine Ratio 31 H Glucose 329 H D Calculated Osmolality 357 H Calcium 9.3 Corrected Calcium 9.9 Phosphorus 1.7 L Magnesium 2.0 Total Bilirubin 0.3 AST 14 ALT 30 Alkaline Phosphatase 76 Total Protein 6.8 Albumin 3.2 L Globulin 3.6 H Albumin/Globulin Ratio 0.9 L Ur Random Sodium Ur Random Potassium 07/11/24 07/11/24 07/11/24 06:50 09:23 11:55 WBC RBC Hgb Hct MCV MCH MCHC RDW Std Deviation Plt Count Neut % (Auto) Lymph % (Auto) [place] % (Auto) Eos % (Auto) Baso % (Auto) Neut # (Auto) Lymph # (Auto) [place] # (Auto) Eos # (Auto) Baso # (Auto) Immature Gran # (Auto) Absolute Nucleated RBC Immature Gran % Nucleated RBC % Smear Path Review Sodium 158 H 161 H* 158 H Potassium Chloride Carbon Dioxide Anion Gap BUN Creatinine Estim Creat Clear Calc eGFR BUN/Creatinine Ratio Glucose Calculated Osmolality Calcium Corrected Calcium Phosphorus Magnesium Total Bilirubin AST ALT Alkaline Phosphatase Total Protein Albumin Globulin Albumin/Globulin Ratio Ur Random Sodium Ur Random Potassium 07/11/24 15:30 WBC RBC Hgb Hct MCV MCH MCHC RDW Std Deviation Plt Count Neut % (Auto) Lymph % (Auto) [place] % (Auto) Eos % (Auto) Baso % (Auto) Neut # (Auto) Lymph # (Auto) [place] # (Auto) Eos # (Auto) Baso # (Auto) Immature Gran # (Auto) Absolute Nucleated RBC Immature Gran % Nucleated RBC % Smear Path Review Sodium 158 H Potassium Chloride Carbon Dioxide Anion Gap BUN Creatinine Estim Creat Clear Calc eGFR BUN/Creatinine Ratio Glucose Calculated Osmolality Calcium Corrected Calcium Phosphorus Magnesium Total Bilirubin AST ALT Alkaline Phosphatase Total Protein Albumin Globulin Albumin/Globulin Ratio Ur Random Sodium Ur Random Potassium ABG Interpretation ABG results: 07/09/24 14:42 ABG pH 7.47 H ABG pCO2 39 ABG pO2 54 L* ABG HCO3 29 H ABG O2 Saturation 89 L ABG Base Excess 5 H Quality Measures Quality Measures none Assessment & Plan Assessment Current Active Medications: Generic Name Dose Route Start Last Admin Trade Name Freq PRN Reason Stop Dose Admin Acetaminophen 650 mg 07/10/24 00:32 Acetaminophen Supp 650 Mg Supp SD 08/09/24 00:31 Q4HR PRN PAIN SCALE 1-3 (mild Acetaminophen 650 mg 07/10/24 17:23 07/10/24 17:43 Acetaminophen 325 Mg Tablet PO 08/09/24 00:31 650 mg Q4HR PRN Administration PAIN RATED 1-3OR FEVER > 101 Al Hydrox/Mg Hydrox/Simethicone 30 ml 07/10/24 00:32 Mg Hyd/Al Hyd/Brittany (Maalox Reg) Susp 30 Ml Udc PO 08/09/24 00:31 Q4HR PRN Heartburn or Upset Stomach Albuterol 2.5 mg 07/10/24 11:00 07/11/24 14:58 Albuterol Rt 2.5 Mg/0.5 Ml Nebu INH 08/09/24 10:59 2.5 mg Q4HRRT TOOTIE Administration Apixaban 5 mg 07/10/24 09:00 07/11/24 08:37 Apixaban 2.5 Mg Tablet PO 07/31/24 08:59 5 mg BID TOOTIE Administration Dextrose 25 ml 07/09/24 22:26 Dextrose 50%-Water Inj 50 Ml Syringe IV 08/08/24 22:25 Q15MIN PRN BG 50-70 responsive npo pt Dextrose 50 ml 07/09/24 22:26 Dextrose 50%-Water Inj 50 Ml Syringe IV 08/08/24 22:25 Q15MIN PRN BG <50 OR BG <70 & pt unresponsive Glucagon 1 mg 07/09/24 22:26 Glucagon Inj 1 Mg Vial IM Q15MIN PRN BG <70, and no IV access Doxycycline Hyclate 100 mg/ 100 mls @ 100 mls/hr 07/10/24 09:00 07/11/24 08:38 Sodium Chloride IV 07/16/24 22:29 100 mls/hr BID TOOTIE Administration Dextrose 1,000 mls @ 20 mls/hr 07/10/24 17:11 07/10/24 18:00 D5w IV 08/09/24 17:10 20 mls/hr .Q24H TOOTIE Infusion Piperacillin/Tazobactam/Dextrose 50 mls @ 12.5 mls/hr 07/11/24 14:00 07/11/24 14:19 Zosyn IV 07/17/24 13:59 12.5 mls/hr Q8HR TOOTIE Administration Insulin Glargine 16 unit 07/10/24 09:00 07/11/24 08:38 Insulin Glargine (Lantus) 5 Unit/0.05 Ml (Per 5 Units) SC 08/09/24 08:59 16 unit QDAY TOOTIE Administration Insulin Human Lispro 0 unit 07/11/24 00:00 07/11/24 12:56 Insulin Lispro (Admelog) 1 Unit/0.01 Ml Unit SC 08/10/24 00:00 2 unit Q6HR TOOTIE Administration Protocol Magnesium Hydroxide 30 ml 07/10/24 00:32 Milk Of Magnesia Susp 30 Ml Udc PO 08/09/24 00:31 QDAY PRN CONSTIPATION Ondansetron HCl 4 mg 07/09/24 22:15 Ondansetron Inj 2 Mg/Ml Inj 2 Ml IV 08/08/24 22:14 Q6H PRN NAUSEA OR VOMITING Protocol Oxycodone/Acetaminophen 1 tab 07/11/24 08:25 Oxycodone/Apap 5/325 Tablet GT 07/14/24 22:44 Q6HR PRN PAIN SCALE 4-10(Mod-Sev Pantoprazole Sodium 40 mg 07/10/24 09:00 07/11/24 08:41 Pantoprazole Inj 40 Mg Vial IVP 08/09/24 08:59 40 mg QDAY TOOTIE Administration Pharmacy Consult 1 each 07/09/24 22:23 Pharmacy Renal Dose Adjustment 1 Ea XX 08/08/24 22:22 PRN PRN CONSULT Sodium Chloride 3 ml 07/10/24 10:40 07/11/24 14:58 Sodium Chloride Rt Erica 0.9% 3 Ml Nebu INH 08/09/24 10:39 3 ml PRN PRN Administration SOLN Plan Mr. Patiño is a 63-year-old with past medical history significant for multiple sclerosis, history of CVA with left-sided hemiplegia, hypertension, COPD, type 2 diabetes, hyperlipidemia, GERD was admitted to the ICU on 07/09 from half-way facility due to shortness of breath and hypoxia. Patient was also found to have severe sepsis secondary to pneumonia and pyelonephritis as well as patient was found to have hypernatremia. Pt was admitted to ICU on 07/09 and downgraded to floors on 07/11 for continued management #Sepsis, severe likely secondary to Community-acquired pneumonia versus UTI #CAP likely secondary to ESBL Klebsiella and/or MDR Pseudomonas #UTI secondary to MDR Pseudomonas #Pyelonephritis #Lactic acidosis, LA 2.3 today -on admission pt was tachycardic, tachyapnic and had fever of 101.5 and leukocytosis (WBC 32.2) -lactic acid 2.4 -Chest CT is evident of bibasilar pneunomina, significant left base -supplemental oxygen as needed -blood culture no growth after 48 hrs -MRSA nares positive -Sputum culture pending -urine culture positive for GNR -Pt is currently on zosyn and doxycline #Acute encephalopathy secondary to metabolic versus toxic metabolic causes #Hypernatremia -on admission Na was 164, Pt was started on D5W40 to slowly correct the sodium -increase water flushes via PEG tube #Acute kidney injury # Nephrolithiasis, bilateral nonobstructing #Hydronephrosis, right likely secondary to above -likely prerenal in [place]sa setting of dehydration -increased free water flushes with PEG tube feedings -Nephrology Dr Gomez consulted, recommendations appreciated # Anemia, normocytic likely secondary to anemia of chronic disease -Hgb 10.0, Hct 33, MCV 87 -No signs of active bleeding, liekly dilutional anemia -will continue to monitor daily cbc #Insulin dependent type 2 Diabetes -A1c 8.6 on 07/10 -Pt's home regimen is glargine 16 units daily -Pt is started on insulin sliding scale #Hx. of Pulmonary embolism -Pt's home eliquis is resumed #PEG tube feeds -resume PEG tube feeding with goal rate of 65/h -current rate is 35ml/h with 150 cc free water flushes -dietary consulted Health Maintenance Disposition: telemetry DVT Prophylaxis: Pt is on eliquis for hx. of PE and SCD's Qshift GI Prophylaxis: Pantoprozol-40 IV Qday Diet: PEG tube feeds resume Lines: Peripheral lines Code status: Full Assessment and plan discussed with my senior resident Dr. Ruff & attending physician Dr. Celia Rees (PGY-1)- Internal medicine resident Attending Provider Attestation/Addendum I have discussed and was present for the essential components of the history, physical examination, diagnosis, and treatment plan with the resident. I agree with the patient's care as documented by the resident and amended herein by me. Nura Yang DO. Although this document has been carefully reviewed, there may still be some phonetic and other typographical errors. These errors are purely grammatical due to imperfections in the software program and should not be construed in any way to compromise the substance of the patient's medical care during this visit.
[2024-07-11 20:00] LABS: Sodium 155 mMol/L (136-145)
[2024-07-11 23:52] LABS: Sodium 157 mMol/L (136-145)
[2024-07-12] VITALS (24 sets, daily range): BP systolic 93–137; BP diastolic 55–91; PULSE 95–181; RESP 16–48; TEMP 36.2–38.3; O2SAT 89–99; BMI 15.9
[2024-07-12] MEDS: INSULIN LISPRO (AdmeLOG) 1 UNIT/0.01 ML UNIT SC ×2 (00:14→05:42)
--- NOTE | 2024-07-12 02:03 | XR_ITS ---
Examination: AP chest single view Technique: AP portable semiupright chest single view Exam date and time: 2024 0207 hrs. Comparison July 09, 2024 Indications: Shortness of breath today Findings: Moderate CHF Mild enlargement cardiac contour. Prominent vascular congestion with perihilar edema Prominent osteopenia Impression: Moderate CHF
[2024-07-12] MEDS: ALBUTEROL RT 2.5 MG/0.5 ML NEBU INH ×6 (02:14→22:46)
[2024-07-12] MEDS: SODIUM CHLORIDE RT SOL 0.9% 3 ML NEBU INH ×5 (02:14→18:06)
--- NOTE | 2024-07-12 03:40 | PC.RT ---
nasopharyngeal suction complete. moderate thick creamy secretion noted.
[2024-07-12 03:42] LABS: Basophils % (Auto) 0 % (0-2.5); Eosinophils # (Auto) 0.2 Thou/mm3 (0.0-0.5); Eosinophils % (Auto) 1 % (0-10); Hematocrit 34.6 % (41.0-53.0); Hemoglobin 10.3 g/dL (13.5-16.0); Immature Granulocytes % (Auto) 1 % (0-0); Immature Granulocytes Auto 0.24 Thou/mm3 (0.00-0.00); Lymphocytes # (Auto) 1.6 Thou/mm3 (1.0-4.8); Lymphocytes % (Auto) 6 % (10-50); Mean Corpuscular HGB Conc 29.8 g/dl (31.0-37.0); Mean Corpuscular Hemoglobin 25.9 pg (25.0-35.0); Mean Corpuscular Volume 87 fL (80-100); Monocytes # (Auto) 0.7 Thou/mm3 (0.0-0.8); Monocytes % (Auto) 2 % (0-12); Neutrophils # (Auto) 24.3 Thou/mm3 (1.8-7.7); Neutrophils % (Auto) 90 % (37-80); Nucleated Red Blood Cell % 0 /100 WBC (0); Platelet Count 398 Thou/mm3 (140-440); RDW Standard Deviation 54.1 fL (35.1-43.9); Red Blood Count 3.98 Miln/mm3 (4.50-5.90)
[2024-07-12 03:48] LABS: White Blood Count 27.1 Thou/mm3 (3.8-10.6)
[2024-07-12 04:01] LABS: Alanine Aminotransferase 25 U/L (10-49); Albumin, Serum 3.2 gm/dL (3.4-4.8); Albumin/Globulin Ratio 0.9 (1.2-2.2); Alkaline Phosphatase 80 U/L (46-116); Anion Gap 14 (7-16); Aspartate Amino Transferase 18 U/L (0-34); BUN/Creatinine Ratio 25 Ratio (12-20); Bilirubin,Total 0.2 mg/dL (0.3-1.2); Blood Urea Nitrogen 56 mg/dL (9-23); Calcium 9.5 mg/dL (8.3-10.6); Calcium (Corrected) 10.1 mg/dL (8.5-10.1); Carbon Dioxide 21.6 mMol/L (20.0-31.0); Chloride 119 mMol/L (98-107); Creatinine (Component) 2.2 mg/dL (0.6-1.3); Estimated Creatinine Clearance 25.4 mL/min (>60); Globulin 3.6 gm/dL (2.3-3.5); Glucose 222 mg/dL (74-106); Magnesium 1.8 mg/dL (1.6-2.6); Osmolality,Calculated 329 (275-295); Potassium 3.9 mMol/L (3.4-5.1); Sodium 155 mMol/L (136-145); Total Protein 6.8 gm/dL (5.7-8.2); eGFR 33 See Note
[2024-07-12] MEDS: FUROSEMIDE INJ 10 MG/ML VIAL 2 ML 20 MG IVP (04:28)
[2024-07-12] MEDS: PIPER/TAZO 3.375 GM PREMIX 50 ML IV (05:43)
[2024-07-12] MEDS: ACETAMINOPHEN 325 MG TABLET 650 MG PO (06:05)
[2024-07-12] MEDS: PANTOPRAZOLE INJ 40 MG VIAL IVP (08:12)
[2024-07-12] MEDS: APIXABAN 2.5 MG TABLET 5 MG PO ×2 (08:12→21:21)
[2024-07-12] MEDS: NAPH,KPH MBDB 1 PACKET (1.5 GM) 2 PACKET GT (08:13)
[2024-07-12] MEDS: Magnesium Sulfate 1 gm Ivpb 1 GM/100 ML BAG IV ×2 (08:14→15:40)
[2024-07-12] MEDS: INSULIN GLARGINE (Lantus) 5 UNIT/0.05 ML (PER 5 UNITS) 16 UNIT SC (08:17)
[2024-07-12] MEDS: DOXYCYCLINE INJ 100 MG in SODIUM CHLORIDE 0.9% (POP) 100 ML IV (08:17)
[2024-07-12 08:42] LABS: Sodium 154 mMol/L (136-145)
[2024-07-12] MEDS: LEVOFLOXACIN/D5W 750MG IVPB 750 MG/150 ML BAG 100 MG IV (09:23)
--- NOTE | 2024-07-12 10:23 | PD.RESPRO ---
Documentation for date of: 07/12/24 Subjective Subjective Interval history: Patient examined at bedside. Per nursing, all free water through tube flushes and D5W were held due to concern for volume overload status. Yesterday flushes were increased to 150cc/hr and D5W was increased to 45cc/hr. Hypernatremia and Cr are slowly improving--154 and 2.2 respectively. Continue to hold and monitor sodium. Exam Vital Signs Temp Pulse Resp BP Pulse Ox O2 Del Method O2 Flow Rate 99.9 F 97 34 H 130/70 95 High Flow Nasal Cannula 07/12/24 07:05 07/12/24 10:16 07/12/24 06:30 07/12/24 04:28 07/12/24 06:30 07/12/24 04:00 07/12/24 06:30 FiO2 75 07/12/24 06:30 Narrative Exam General:Adult male, nonverbal/bedbound unable to follow command, on high flow HEENT: NCAT, No JVD noted. Mucosa moist. Pupils are equal and reactive to light bilaterally Cardiovascular: Normal S1 and S2. Regular rate and rhythm. Respiratory: Lungs are clear to auscultation bilaterally. No wheezing or crackles heard. Abdomen: Soft, nontender, not distended, normal bowel sounds. Skin: Warm to touch, dry, no rashes noted Musculoskeletal: No gross injuries. No pitting edema, feet placed in waffle cushion Neuro: opens eyes to name, does not follow commands Psych: unable to assess Objective Labs 07/13/24 04:32 07/13/24 16:17 Labs: Laboratory Results - last 24 hr 07/11/24 07/11/24 07/11/24 11:55 15:30 19:46 WBC RBC Hgb Hct MCV MCH MCHC RDW Std Deviation Plt Count Neut % (Auto) Lymph % (Auto) [place] % (Auto) Eos % (Auto) Baso % (Auto) Neut # (Auto) Lymph # (Auto) [place] # (Auto) Eos # (Auto) Baso # (Auto) Immature Gran # (Auto) Absolute Nucleated RBC Immature Gran % Nucleated RBC % Sodium 158 H 158 H 155 H Potassium Chloride Carbon Dioxide Anion Gap BUN Creatinine Estim Creat Clear Calc eGFR BUN/Creatinine Ratio Glucose Calculated Osmolality Calcium Corrected Calcium Phosphorus Magnesium Total Bilirubin AST ALT Alkaline Phosphatase Total Protein Albumin Globulin Albumin/Globulin Ratio 07/11/24 07/12/24 07/12/24 23:29 03:24 07:52 WBC 27.1 H D RBC 3.98 L Hgb 10.3 L Hct 34.6 L MCV 87 MCH 25.9 MCHC 29.8 L RDW Std Deviation 54.1 H Plt Count 398 D Neut % (Auto) 90 H Lymph % (Auto) 6 L [place] % (Auto) 2 Eos % (Auto) 1 Baso % (Auto) 0 Neut # (Auto) 24.3 H Lymph # (Auto) 1.6 [place] # (Auto) 0.7 Eos # (Auto) 0.2 Baso # (Auto) 0.0 Immature Gran # (Auto) 0.24 H Absolute Nucleated RBC 0.00 Immature Gran % 1 H Nucleated RBC % 0 Sodium 157 H 155 H 154 H Potassium 3.9 Chloride 119 H Carbon Dioxide 21.6 Anion Gap 14 BUN 56 H Creatinine 2.2 H Estim Creat Clear Calc 25.4 L eGFR 33 L BUN/Creatinine Ratio 25 H Glucose 222 H D Calculated Osmolality 329 H Calcium 9.5 Corrected Calcium 10.1 Phosphorus 2.0 L Magnesium 1.8 Total Bilirubin 0.2 L AST 18 ALT 25 Alkaline Phosphatase 80 Total Protein 6.8 Albumin 3.2 L Globulin 3.6 H Albumin/Globulin Ratio 0.9 L ABG Interpretation ABG results: 07/09/24 14:42 ABG pH 7.47 H ABG pCO2 39 ABG pO2 54 L* ABG HCO3 29 H ABG O2 Saturation 89 L ABG Base Excess 5 H Quality Measures Quality Measures none Assessment & Plan Assessment Current Active Medications: Generic Name Dose Route Start Last Admin Trade Name Freq PRN Reason Stop Dose Admin Acetaminophen 650 mg 07/10/24 00:32 Acetaminophen Supp 650 Mg Supp AL 08/09/24 00:31 Q4HR PRN PAIN SCALE 1-3 (mild Acetaminophen 650 mg 07/10/24 17:23 07/12/24 06:05 Acetaminophen 325 Mg Tablet PO 08/09/24 00:31 650 mg Q4HR PRN Administration PAIN RATED 1-3OR FEVER > 101 Al Hydrox/Mg Hydrox/Simethicone 30 ml 07/10/24 00:32 Mg Hyd/Al Hyd/Brittany (Maalox Reg) Susp 30 Ml Udc PO 08/09/24 00:31 Q4HR PRN Heartburn or Upset Stomach Albuterol 2.5 mg 07/10/24 11:00 07/12/24 10:16 Albuterol Rt 2.5 Mg/0.5 Ml Nebu INH 08/09/24 10:59 2.5 mg Q4HRRT TOOTIE Administration Apixaban 5 mg 07/10/24 09:00 07/12/24 08:12 Apixaban 2.5 Mg Tablet PO 07/31/24 08:59 5 mg BID TOOTIE Administration Dextrose 25 ml 07/09/24 22:26 Dextrose 50%-Water Inj 50 Ml Syringe IV 08/08/24 22:25 Q15MIN PRN BG 50-70 responsive npo pt Dextrose 50 ml 07/09/24 22:26 Dextrose 50%-Water Inj 50 Ml Syringe IV 08/08/24 22:25 Q15MIN PRN BG <50 OR BG <70 & pt unresponsive Glucagon 1 mg 07/09/24 22:26 Glucagon Inj 1 Mg Vial IM Q15MIN PRN BG <70, and no IV access Doxycycline Hyclate 100 mg/ 100 mls @ 100 mls/hr 07/10/24 09:00 07/12/24 08:17 Sodium Chloride IV 07/16/24 22:29 100 mls/hr BID TOOTIE Administration Dextrose 1,000 mls @ 20 mls/hr 07/12/24 03:30 07/12/24 03:46 D5w IV 08/11/24 03:29 Not Given .Q24H TOOTIE Levofloxacin/Dextrose 750 mg in 150 mls @ 100 mls/hr 07/12/24 09:00 07/12/24 09:23 Levaquin Ivpb IV 07/19/24 08:59 100 mls/hr QOD TOOTIE Administration Insulin Glargine 16 unit 07/10/24 09:00 07/12/24 08:17 Insulin Glargine (Lantus) 5 Unit/0.05 Ml (Per 5 Units) SC 08/09/24 08:59 16 unit QDAY TOOTIE Administration Insulin Human Lispro 0 unit 07/11/24 00:00 07/12/24 05:42 Insulin Lispro (Admelog) 1 Unit/0.01 Ml Unit SC 08/10/24 00:00 2 unit Q6HR TOOTIE Administration Protocol Magnesium Hydroxide 30 ml 07/10/24 00:32 Milk Of Magnesia Susp 30 Ml Udc PO 08/09/24 00:31 QDAY PRN CONSTIPATION Ondansetron HCl 4 mg 07/09/24 22:15 Ondansetron Inj 2 Mg/Ml Inj 2 Ml IV 08/08/24 22:14 Q6H PRN NAUSEA OR VOMITING Protocol Oxycodone/Acetaminophen 1 tab 07/11/24 08:25 Oxycodone/Apap 5/325 Tablet GT 07/14/24 22:44 Q6HR PRN PAIN SCALE 4-10(Mod-Sev Pantoprazole Sodium 40 mg 07/10/24 09:00 07/12/24 08:12 Pantoprazole Inj 40 Mg Vial IVP 08/09/24 08:59 40 mg QDAY TOOTIE Administration Pharmacy Consult 1 each 07/09/24 22:23 Pharmacy Renal Dose Adjustment 1 Ea XX 08/08/24 22:22 PRN PRN CONSULT Sodium Chloride 3 ml 07/10/24 10:40 07/12/24 10:16 Sodium Chloride Rt Erica 0.9% 3 Ml Nebu INH 08/09/24 10:39 3 ml PRN PRN Administration SOLN Plan Jamie Patiño is 63 yr male with PMH of MS, CVA with L/S hemiplegia, HTN, COPD, IDDM II, HLD, GERD, lower extremity contractures, who is also and bedridden, and non-verbal at baseline, BIBA from [facility] on 07/09/24 due to shortness of breath and hypoxia for past few days. Most history was obtained from chart review. At bedside he remains nonverbal. Nephrology was consutled for patient's BARBARA and hyperosmolar hypernatremia. #Hyperosmolar hypernatremia #BARBARA Initially presented with sodium of 165, BUN 86, Cr 2.2. Patient was started on D5W 45cc/hr and free water flushes 20cc/hr. Most likely due to poor oral intake and dehydration along with setting of patient's sepsis leading to hypoperfusion. Currently BUN/Cr 31 indicating pre renal etiology. -Goal sodium over next 24 hrs ~148. -Sodium checks every 3 hours -Free water deficit calculated to be 1.7 L for goal above -holding D5W maintainence and free water flushes due to concern for fluid overload status -avoid nephrotoxic agents -daily CMP #Bilateral nonobstructing renal calculi #Right hydronephrosis #Acute metabolic encephalopathy 2/2 hypernatremia and sepsis #Severe sepsis 2/2 Pyelonephritis #Lactic acidosis #Hx of PE on Eliquis #Acute hypoxic respiratory failure on high flow NC #Pylonephritis #Anemia chronic disease #Leukocytosis 2/2 Pyelonephritis #Acute anemia/thrombocytosis in setting of severe dehydration #IDDM II #PEG tube feeding -Continue care as per primary care team. The patient's management plan was discussed with my attending physician Dr. Gomez. Louann Rucker, PGY-1 Attending Provider Attestation/Addendum Pt seen and examined. Labs are reviewed. Discussed plan with resident. Notes by resident reviewed. Agree with assessment and plan Ludwig Gomez MD
--- NOTE | 2024-07-12 11:40 | CHAP ---
Patient was visited by the Spiritual Care Volunteer who prayed for them. (Volunteer was in the hospital from 11:15-11:40)
[2024-07-12 11:49] LABS: Sodium 152 mMol/L (136-145)
--- NOTE | 2024-07-12 13:53 | PD.IDPROG ---
Subjective Subjective Interval history: febrile on and soon after arrival. on levaquin for urine and sputum germs. some may be colonizers though. some ckd noted. Exam Vital Signs Temp Pulse Resp BP Pulse Ox O2 Del Method O2 Flow Rate 97.1 F 99 36 H 93/55 L 99 High Flow Nasal Cannula 07/12/24 08:00 07/12/24 10:20 07/12/24 10:20 07/12/24 08:00 07/12/24 10:20 07/12/24 08:00 07/12/24 10:20 FiO2 70 07/12/24 10:20 Narrative Exam non verbal . has theravest in use. and resp rx too. pt non interactive hx noted. Objective - Internal Medicine Labs 07/12/24 03:24 07/12/24 11:30 Labs: Laboratory Results - last 24 hr 07/11/24 07/11/24 07/11/24 15:30 19:46 23:29 WBC RBC Hgb Hct MCV MCH MCHC RDW Std Deviation Plt Count Neut % (Auto) Lymph % (Auto) Evangeline % (Auto) Eos % (Auto) Baso % (Auto) Neut # (Auto) Lymph # (Auto) [place] # (Auto) Eos # (Auto) Baso # (Auto) Immature Gran # (Auto) Absolute Nucleated RBC Immature Gran % Nucleated RBC % Sodium 158 H 155 H 157 H Potassium Chloride Carbon Dioxide Anion Gap BUN Creatinine Estim Creat Clear Calc eGFR BUN/Creatinine Ratio Glucose Calculated Osmolality Calcium Corrected Calcium Phosphorus Magnesium Total Bilirubin AST ALT Alkaline Phosphatase Total Protein Albumin Globulin Albumin/Globulin Ratio 07/12/24 07/12/24 07/12/24 03:24 07:52 11:30 WBC 27.1 H D RBC 3.98 L Hgb 10.3 L Hct 34.6 L MCV 87 MCH 25.9 MCHC 29.8 L RDW Std Deviation 54.1 H Plt Count 398 D Neut % (Auto) 90 H Lymph % (Auto) 6 L Evangeline % (Auto) 2 Eos % (Auto) 1 Baso % (Auto) 0 Neut # (Auto) 24.3 H Lymph # (Auto) 1.6 Evangeline # (Auto) 0.7 Eos # (Auto) 0.2 Baso # (Auto) 0.0 Immature Gran # (Auto) 0.24 H Absolute Nucleated RBC 0.00 Immature Gran % 1 H Nucleated RBC % 0 Sodium 155 H 154 H 152 H Potassium 3.9 Chloride 119 H Carbon Dioxide 21.6 Anion Gap 14 BUN 56 H Creatinine 2.2 H Estim Creat Clear Calc 25.4 L eGFR 33 L BUN/Creatinine Ratio 25 H Glucose 222 H D Calculated Osmolality 329 H Calcium 9.5 Corrected Calcium 10.1 Phosphorus 2.0 L Magnesium 1.8 Total Bilirubin 0.2 L AST 18 ALT 25 Alkaline Phosphatase 80 Total Protein 6.8 Albumin 3.2 L Globulin 3.6 H Albumin/Globulin Ratio 0.9 L ABG Interpretation ABG results: 07/09/24 14:42 ABG pH 7.47 H ABG pCO2 39 ABG pO2 54 L* ABG HCO3 29 H ABG O2 Saturation 89 L ABG Base Excess 5 H Assessment & Plan A&P Narrative prior cva and [place] residence. is a full code nontheless. hx of ms with contractures diffusely and not interactive we can screen for some stuff, but the yield is low, will order as precaution. but no objection to levaquin alone. will try 250/day . oral is same as iv if he can take orally. Time Spent With Patient Time: Total time spent is greater than 50% in coordination of care (as documented) at patient's floor/unit and/or counseling patient:
[2024-07-12] MEDS: FUROSEMIDE INJ 10 MG/ML 4ML VIAL 40 MG IVP (14:38)
--- NOTE | 2024-07-12 14:51 | EKG_ITS ---
[facility] Test Date: 2024-07-12 Pat Name: LISSETH BRAND Department: Room: 54A Gender: Male Supervising Producer: LUIGI : 1960 Requested By: Josué Ruff Order Number: [id number] Reading MD: Josué Ruff Measurements Intervals [place] Rate: 108 P: 80 GA: 183 QRS: 56 QRSD: 82 T: 0 QT: 297 QTc: 399 Interpretive Statements SINUS TACHYCARDIA POSSIBLE LEFT ATRIAL ENLARGEMENT POSSIBLE LEFT VENTRICULAR HYPERTROPHY NONSPECIFIC T-WAVE ABNORMALITY Compared to ECG 07/09/2024 14:47:47 No significant changes /store/S0/[id number].pdf
--- NOTE | 2024-07-12 15:50 | PC.SS ---
Update: Patient on high flow nasal cannula. PEG tube in place for feedings. Patient is not receiving pressor support. IV medication in place. Patient has been downgraded from ICU to tele floor.
--- NOTE | 2024-07-12 16:07 | ESPR_ITS ---
<Statement entered by Josué Ruff MD - 07/12/24 16:29> Patient was seen and examined at the bedside in ICU. Patient is nonverbal and bedbound at baseline. Examination showed crackles bilateral lung bases. Patient was placed on high flow nasal cannula weaning off slowly from 70% to 65%. Overnight, tube feeds were held given sodium uptrending and patient was desaturating. Night resident gave Lasix dose 20 mg x 1 which improved sodium levels. Labs showed improvement in the white count and hemoglobin remained stable. Kidney functions showed BUN 56 and creatinine 2.2. Electrolytes including magnesium and phosphorus was repleted. EKG showed sinus tachycardia as patient had a brief episode of V. tach. We plan to keep tube feeds and D5W on hold. Will continue with sodium checks Q4 hourly and additional Lasix 40 mg x 1 was given. Will follow-up on MRI. ID recommended to continue Levaquin to 50 mg p.o. daily for Klebsiella and Pseudomonas in sputum as well as in urine. I saw and examined the patient, and I agree with current management stated by Dr Cabrera MD,PGY1. Plan of care was discussed with the attending physician and resident physician. Disclaimer: Despite multiple revisions, due to the dictation software being used, the document bellow may not be free of grammatical errors including phonetic/typographic errors. However, this does not deter from our commitment to providing health care in the patient's best interest in mind. Dr. Elzbieta MD, PGY 2 Documentation for date of: 07/12/24 Subjective Subjective Interval history: Overnight team reported patient repeat sodium came back to 158 which prompted the overnight team to start the patient on D5 W and stop the free water flushes and all fluids for the patient because he also appeared to be fluid overloaded with crackles appreciated on auscultation by overnight resident patient was also given a Lasix 20 mg x 1. Patient later started desatting and was switched to high flow FiO2 70%. Patient seen and examined in ICU this morning blood pressure is 93/5 heart rate is normal 3 patient is on high flow with FiO2 65%. Although patient appears dry he has mild crackles on lung auscultation. Labs are significant for leukocytosis downtrending to 27.1 hemoglobin is 10.3, hematocrit 34.6, repeat sodium is 155, BUN 56 and creatinine is 2.2 which has improved from 2.4 yesterday. Blood cultures are negative and sputum culture grew Klebsiella and Pseudomonas patient was taking doxycycline and Zosyn and due to culture speciation patient is sensitive to Levaquin and patient is started on that. Will continue to monitor sodium every 4 hours and hold D5W for now as well as continue to hold water flushes through the tube feeds. Exam Vital Signs Temp Pulse Resp BP Pulse Ox O2 Del Method O2 Flow Rate 97.1 F 104 H 33 H 120/65 98 High Flow Nasal Cannula 07/12/24 08:00 07/12/24 14:38 07/12/24 14:07 07/12/24 14:38 07/12/24 14:07 07/12/24 08:00 07/12/24 14:07 FiO2 60 07/12/24 14:07 Narrative Exam GENERAL: Not in acute distress, saturating via oxymask NEURO: no focal neurological deficits HEENT: Atraumatic, Normocephalic. mucous membranes moist. Eyes open, anisocoria noted (left pupil dilated) HEART: Normal Heart Sounds LUNGS: mild crackles at the base of lungs ABDOMEN: soft, non-distended, non-tender, bowel sounds heard, no guarding or rebound tenderness SKIN: No Rash or ecchymoses EXTREMITIES: contracted upper and lower extremities Objective Labs 07/12/24 03:24 07/12/24 16:05 Labs: Laboratory Results - last 24 hr 07/11/24 07/11/24 07/11/24 15:30 19:46 23:29 WBC RBC Hgb Hct MCV MCH MCHC RDW Std Deviation Plt Count Neut % (Auto) Lymph % (Auto) [place] % (Auto) Eos % (Auto) Baso % (Auto) Neut # (Auto) Lymph # (Auto) [place] # (Auto) Eos # (Auto) Baso # (Auto) Immature Gran # (Auto) Absolute Nucleated RBC Immature Gran % Nucleated RBC % Sodium 158 H 155 H 157 H Potassium Chloride Carbon Dioxide Anion Gap BUN Creatinine Estim Creat Clear Calc eGFR BUN/Creatinine Ratio Glucose Calculated Osmolality Calcium Corrected Calcium Phosphorus Magnesium Total Bilirubin AST ALT Alkaline Phosphatase Total Protein Albumin Globulin Albumin/Globulin Ratio 07/12/24 07/12/24 07/12/24 03: 07:52 11:30 WBC 27.1 H D RBC 3.98 L Hgb 10.3 L Hct 34.6 L MCV 87 MCH 25.9 MCHC 29.8 L RDW Std Deviation 54.1 H Plt Count 398 D Neut % (Auto) 90 H Lymph % (Auto) 6 L [place] % (Auto) 2 Eos % (Auto) 1 Baso % (Auto) 0 Neut # (Auto) 24.3 H Lymph # (Auto) 1.6 [place] # (Auto) 0.7 Eos # (Auto) 0.2 Baso # (Auto) 0.0 Immature Gran # (Auto) 0.24 H Absolute Nucleated RBC 0.00 Immature Gran % 1 H Nucleated RBC % 0 Sodium 155 H 154 H 152 H Potassium 3.9 Chloride 119 H Carbon Dioxide 21.6 Anion Gap 14 BUN 56 H Creatinine 2.2 H Estim Creat Clear Calc 25.4 L eGFR 33 L BUN/Creatinine Ratio 25 H Glucose 222 H D Calculated Osmolality 329 H Calcium 9.5 Corrected Calcium 10.1 Phosphorus 2.0 L Magnesium 1.8 Total Bilirubin 0.2 L AST 18 ALT 25 Alkaline Phosphatase 80 Total Protein 6.8 Albumin 3.2 L Globulin 3.6 H Albumin/Globulin Ratio 0.9 L ABG Interpretation ABG results: 07/09/24 14:42 ABG pH 7.47 H ABG pCO2 39 ABG pO2 54 L* ABG HCO3 29 H ABG O2 Saturation 89 L ABG Base Excess 5 H Quality Measures Quality Measures none Assessment & Plan Assessment Current Active Medications: Generic Name Dose Route Start Last Admin Trade Name Freq PRN Reason Stop Dose Admin Acetaminophen 650 mg 07/10/24 00:32 Acetaminophen Supp 650 Mg Supp UT 08/09/24 00:31 Q4HR PRN PAIN SCALE 1-3 (mild Acetaminophen 650 mg 07/10/24 17:23 07/12/24 06:05 Acetaminophen 325 Mg Tablet PO 08/09/24 00:31 650 mg Q4HR PRN Administration PAIN RATED 1-3OR FEVER > 101 Al Hydrox/Mg Hydrox/Simethicone 30 ml 07/10/24 00:32 Mg Hyd/Al Hyd/Brittany (Maalox Reg) Susp 30 Ml Udc PO 08/09/24 00:31 Q4HR PRN Heartburn or Upset Stomach Albuterol 2.5 mg 07/10/24 11:00 07/12/24 14:06 Albuterol Rt 2.5 Mg/0.5 Ml Nebu INH 08/09/24 10:59 2.5 mg Q4HRRT TOOTIE Administration Apixaban 5 mg 07/10/24 09:00 07/12/24 08:12 Apixaban 2.5 Mg Tablet PO 07/31/24 08:59 5 mg BID TOOTIE Administration Dextrose 25 ml 07/09/24 22:26 Dextrose 50%-Water Inj 50 Ml Syringe IV 08/08/24 22:25 Q15MIN PRN BG 50-70 responsive npo pt Dextrose 50 ml 07/09/24 22:26 Dextrose 50%-Water Inj 50 Ml Syringe IV 08/08/24 22:25 Q15MIN PRN BG <50 OR BG <70 & pt unresponsive Glucagon 1 mg 07/09/24 22:26 Glucagon Inj 1 Mg Vial IM Q15MIN PRN BG <70, and no IV access Dextrose 1,000 mls @ 20 mls/hr 07/12/24 03:30 07/12/24 03:46 D5w IV 08/11/24 03:29 Not Given .Q24H [facility] Insulin Glargine 16 unit 07/10/24 09:00 07/12/24 08:17 Insulin Glargine (Lantus) 5 Unit/0.05 Ml (Per 5 Units) SC 08/09/24 08:59 16 unit QDAY [facility] Administration Insulin Human Lispro 0 unit 07/11/24 00:00 07/12/24 12:16 Insulin Lispro (Admelog) 1 Unit/0.01 Ml Unit SC 08/10/24 00:00 Not Given Q6HR [facility] Protocol Levofloxacin 250 mg 07/13/24 09:00 Levofloxacin 250 Mg Tablet PO 07/19/24 12:00 QDAY [facility] Magnesium Hydroxide 30 ml 07/10/24 00:32 Milk Of Magnesia Susp 30 Ml Udc PO 08/09/24 00:31 QDAY PRN CONSTIPATION Ondansetron HCl 4 mg 07/09/24 22:15 Ondansetron Inj 2 Mg/Ml Inj 2 Ml IV 08/08/24 22:14 Q6H PRN NAUSEA OR VOMITING Protocol Oxycodone/Acetaminophen 1 tab 07/11/24 08:25 Oxycodone/Apap 5/325 Tablet GT 07/14/24 22:44 Q6HR PRN PAIN SCALE 4-10(Mod-Sev Pharmacy Consult 1 each 07/09/24 22:23 Pharmacy Renal Dose Adjustment 1 Ea XX 08/08/24 22:22 PRN PRN CONSULT Sodium Chloride 3 ml 07/10/24 10:40 07/12/24 14:06 Sodium Chloride Rt Erica 0.9% 3 Ml Nebu INH 08/09/24 10:39 3 ml PRN PRN Administration SOLN Plan Mr. Patiño is a 63-year-old with past medical history significant for multiple sclerosis, history of CVA with left-sided hemiplegia, hypertension, COPD, type 2 diabetes, hyperlipidemia, GERD was admitted to the ICU on 07/09 from [facility] due to shortness of breath and hypoxia. Patient was also found to have severe sepsis secondary to pneumonia and pyelonephritis as well as patient was found to have hypernatremia. Pt was admitted to ICU on 07/09 and downgraded to floors on 07/11 for continued management #Sepsis, severe likely secondary to Community-acquired pneumonia versus UTI #CAP likely secondary to ESBL Klebsiella and/or MDR Pseudomonas #UTI secondary to MDR Pseudomonas #Pyelonephritis #Lactic acidosis, LA 2.3 today -on admission pt was tachycardic, tachyapnic and had fever of 101.5 and leukocytosis (WBC 32.2) -lactic acid 2.3 -Chest CT is evident of bibasilar pneunomina, significant left base -supplemental oxygen as needed -blood culture no growth after 48 hrs -MRSA nares positive -Sputum culture grew klebsiella and pseudomonas -urine culture positive pseudomonas -Switched zosyn and doxycline due to cultures to levoquin on 07/12- -ID consulted, appreciate recommendations #Acute encephalopathy secondary to metabolic versus toxic metabolic causes #Hypernatremia -on admission Na was 164, Pt was started on D5W40 to slowly correct the sodium -Free water deficit is 3.4L -monitor Na Q4H #Acute kidney injury #Nephrolithiasis, bilateral non-obstructing #Hydronephrosis, right likely secondary to above -likely prerenal in the setting of dehydration -increased free water flushes with PEG tube feedings -Nephrology Dr Gomez consulted, recommendations appreciated # Anemia, normocytic likely secondary to anemia of chronic disease -Hgb 10.0, Hct 33, MCV 87 -No signs of active bleeding, likely dilutional anemia -will continue to monitor daily cbc #Insulin dependent type 2 Diabetes -A1c 8.6 on 07/10 -Pt's home regimen is glargine 16 units daily -Pt is started on insulin sliding scale #Hx. of Pulmonary embolism -Pt's home eliquis is resumed Health Maintenance Disposition: telemetry DVT Prophylaxis: Pt is on eliquis for hx. of PE and SCD's Qshift GI Prophylaxis: Pantoprozol-40 IV Qday Diet: PEG tube feeds resume with rate is 35ml/h with 150 cc free water flushes (goal rate of 65/h) -on hold today Lines: Peripheral lines Code status: Full Assessment and plan discussed with my senior resident Dr. Ruff & attending physician Dr. Celia Rees (PGY-1)- Internal medicine resident Attending Provider Attestation/Addendum I have discussed and was present for the essential components of the history, physical examination, diagnosis, and treatment plan with the resident. I agree with the patient's care as documented by the resident and amended herein by me. Nura Yang DO. Although this document has been carefully reviewed, there may still be some phonetic and other typographical errors. These errors are purely grammatical due to imperfections in the software program and should not be construed in any way to compromise the substance of the patient's medical care during this visit.
--- NOTE | 2024-07-12 16:40 | ESCONSULT_ITS ---
RE: LISSETH BRAND : 1960 DATE OF CONSULTATION: 07/12/2024 REFERRING PHYSICIAN: Dr. Alcocer. REASON FOR CONSULTATION: Stroke with positive urine and sputum cultures of uncertain significance in a challenging 63-year-old man. HISTORY OF PRESENT ILLNESS: The patient is an unfortunate 63-year-old man with a complex history as noted by others. He apparently carries a diagnosis of stroke, MS, hypertension, COPD, diabetes, hyperlipidemia, reflux, and has significant contractures. He is nonverbal in [facility] where he was brought in with shortness of breath and hypoxia for a few days. Because of his hypoxia, he was on some antibiotics, but his UA is abnormal, so he is on treatment. There was a urine one 07/09 showing pseudomonas , but he appears to be chronically catheterized, so it is not sterile. He was on cefdinir previously. We do not know what his prior urine cultures show. There is an December urine that shows nearly pansensitive E. coli. There is some resistance to Bactrim and trimethoprim. ALLERGIES: HE HAS NO ALLERGIES. He is unable to offer any history, so history is limited and based on files. ASSESSMENT: Positive sputum and urine cultures of uncertain significance in a patient who was previously on treatment for catheter associated urinary tract infection and respiratory failure with possible pneumonia. RECOMMENDATIONS: The patient's overall prognosis is guarded to poor. He is only 63 years of age. He has numerous health problems and they mostly seem to be end-stage at this point. He may recover, but there is no place for anything but treatment of the Klebsiella and pseudomonas. It does look like Levaquin is effective for both, so we will go ahead and leave him on that. I will change the med from 750 every 48 hours to [address], it is fine. The 250 mg daily comes as oral and can be switched to that whenever he is taking orally for a total of seven days. It is going to be fine for the pneumonia as well as the UTI. I will check on him superficially on Wednesday. DT: 14:23:32 TT: 16:10:00 Ref: [id number] - TID: [id number] [facility]
[2024-07-12 16:53] LABS: Sodium 156 mMol/L (136-145)
[2024-07-12 20:24] LABS: Sodium 155 mMol/L (136-145)
[2024-07-13] VITALS (20 sets, daily range): BP systolic 107–129; BP diastolic 55–72; PULSE 47–132; RESP 17–57; TEMP 36.8–37.7; O2SAT 90–98; BMI 15.7
[2024-07-13 01:02] LABS: Sodium 155 mMol/L (136-145)
[2024-07-13] MEDS: ALBUTEROL RT 2.5 MG/0.5 ML NEBU INH ×6 (02:15→22:39)
[2024-07-13] MEDS: SODIUM CHLORIDE RT SOL 0.9% 3 ML NEBU INH ×6 (02:15→22:39)
[2024-07-13 05:50] LABS: Basophils # (Auto) 0.1 Thou/mm3 (0.0-0.2); Basophils % (Auto) 0 % (0-2.5); Eosinophils # (Auto) 0.2 Thou/mm3 (0.0-0.5); Eosinophils % (Auto) 1 % (0-10); Hemoglobin 9.6 g/dL (13.5-16.0); Immature Granulocytes % (Auto) 1 % (0-0); Immature Granulocytes Auto 0.25 Thou/mm3 (0.00-0.00); Lymphocytes # (Auto) 1.4 Thou/mm3 (1.0-4.8); Lymphocytes % (Auto) 5 % (10-50); Mean Corpuscular Hemoglobin 25.8 pg (25.0-35.0); Mean Corpuscular Volume 86 fL (80-100); Monocytes # (Auto) 0.8 Thou/mm3 (0.0-0.8); Monocytes % (Auto) 3 % (0-12); Neutrophils # (Auto) 28.7 Thou/mm3 (1.8-7.7); Neutrophils % (Auto) 91 % (37-80); Nucleated Red Blood Cell % 0 /100 WBC (0); Platelet Count 464 Thou/mm3 (140-440); RDW Standard Deviation 52.9 fL (35.1-43.9); Red Blood Count 3.72 Miln/mm3 (4.50-5.90); White Blood Count 31.4 Thou/mm3 (3.8-10.6)
[2024-07-13 06:34] LABS: Ammonia 20 uMol/L (11-32)
[2024-07-13 06:51] LABS: Folate 19.72 ng/mL (>5.38); Hepatitis A Antibody IgM Non Reactive (Non React); Hepatitis B Core Antibody IgM Non Reactive (Non React); Hepatitis B Surface Antigen Non Reactive (Non React); Hepatitis C Antibody Non Reactive (Non React); Vitamin B12 692 pg/mL (211-911)
[2024-07-13 06:54] LABS: Syphilis Nonreactive (Nonreactive)
[2024-07-13 06:59] LABS: Alanine Aminotransferase 21 U/L (10-49); Albumin, Serum 3.5 gm/dL (3.4-4.8); Albumin/Globulin Ratio 0.9 (1.2-2.2); Alkaline Phosphatase 77 U/L (46-116); Anion Gap 17 (7-16); Aspartate Amino Transferase 16 U/L (0-34); BUN/Creatinine Ratio 21 Ratio (12-20); Bilirubin,Total 0.4 mg/dL (0.3-1.2); Blood Urea Nitrogen 50 mg/dL (9-23); Calcium 9.4 mg/dL (8.3-10.6); Calcium (Corrected) 9.8 mg/dL (8.5-10.1); Carbon Dioxide 23.5 mMol/L (20.0-31.0); Chloride 116 mMol/L (98-107); Creatinine (Component) 2.4 mg/dL (0.6-1.3); Estimated Creatinine Clearance 22.9 mL/min (>60); Globulin 3.8 gm/dL (2.3-3.5); Glucose 74 mg/dL (74-106); Osmolality,Calculated 321 (275-295); Phosphorous 3.9 mg/dL (2.4-5.1); Potassium 3.4 mMol/L (3.4-5.1); Sodium 156 mMol/L (136-145); Thyroid Stimulating Hormone 1.36 uIU/mL (0.55-4.78); Total Protein 7.3 gm/dL (5.7-8.2); eGFR 30 See Note
[2024-07-13 08:26] LABS: Sodium 156 mMol/L (136-145)
--- NOTE | 2024-07-13 09:21 | XR_ITS ---
Examination: AP chest single view Technique one AP portable upright chest single view Exam date and time: July 13, 2024 at 0849 hrs. Comparison July 12, 2024 Indications: Shortness of breath today. Findings: Normal heart size Significant bilateral pneumonia, diffuse in the left lung at the right base Minimal prominence left ventricle Moderate vascular congestion. Impression: Significant bilateral pneumonia with associated heart failure
[2024-07-13 10:29] LABS: Lactate (Lactic Acid) 1.4 mMol/L (0.4-2.0)
[2024-07-13 10:45] LABS: Sodium 160 mMol/L (136-145)
[2024-07-13] MEDS: LEVOFLOXACIN 250 MG TABLET PO (11:59)
[2024-07-13] MEDS: APIXABAN 2.5 MG TABLET 5 MG PO ×2 (12:00→22:14)
[2024-07-13] MEDS: POTASSIUM CHLORIDE 10% 20 MEQ/15 ML UDC 40 MEQ GT (12:01)
--- NOTE | 2024-07-13 15:05 | PC.SS ---
BAND SCROLL SAW OPERATOR received phone call from patient's daughter, Violeta Georges ; discussing family plan to have patient transition to SNF in [place]. Family has plans to arrange transportation for the patient. Daughter informed that patient is on high flow oxygen and would need medical clearance prior to discharge. Daughter acknowledged need for medical clearance. BAND SCROLL SAW OPERATOR submitted release of medical information form to the patient's daughter to generate request for medical records. BAND SCROLL SAW OPERATOR confirmed with medical records person listed as next of kin (Violeta Georges) authorized to request forms. Medical team updated on discharge plan for the patient. 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
--- NOTE | 2024-07-13 16:12 | PC.SS ---
SPONSORSHIP MANAGER received POA from patient's daughter, Violeta Georges. POA is for financial not medical.
--- NOTE | 2024-07-13 16:51 | PD.RESPRO ---
Documentation for date of: 07/13/24 Subjective Subjective Interval history: Patient seen at bedside. Water flushes/D5W continued to hold yesterday. Patient was also given Lasix 20 mg IV x1 due to overload status. However, hypernatremia has worsened today with sodium 160 as of mid morning. Cr increased slightly to 2.4. Recommend to restart D5W at 50cc/hr and monitor sodium. No crackles appreciated on physical exam. Exam Vital Signs Temp Pulse Resp BP Pulse Ox O2 Del Method O2 Flow Rate 98.8 F 120 H 28 H 118/63 96 High Flow Nasal Cannula 07/13/24 04:00 07/13/24 15:41 07/13/24 15:41 07/13/24 04:00 07/13/24 15:41 07/12/24 16:00 07/13/24 15:41 FiO2 60 07/13/24 15:41 Narrative Exam General:Adult male, nonverbal/bedbound unable to follow command, on high flow HEENT: NCAT, No JVD noted. Mucosa moist. Pupils are equal and reactive to light bilaterally Cardiovascular: Normal S1 and S2. Regular rate and rhythm. Respiratory: Lungs are clear to auscultation bilaterally. No wheezing or crackles heard. Abdomen: Soft, nontender, not distended, normal bowel sounds. Skin: Warm to touch, dry, no rashes noted Musculoskeletal: No gross injuries. No pitting edema, feet placed in waffle cushion Neuro: opens eyes to name, does not follow commands Psych: unable to assess Objective Labs 07/15/24 05:47 07/15/24 15:48 Labs: Laboratory Results - last 24 hr 07/12/24 07/12/24 07/13/24 16:05 19:19 00:33 WBC RBC Hgb Hct MCV MCH MCHC RDW Std Deviation Plt Count Neut % (Auto) Lymph % (Auto) [place] % (Auto) Eos % (Auto) Baso % (Auto) Neut # (Auto) Lymph # (Auto) [place] # (Auto) Eos # (Auto) Baso # (Auto) Immature Gran # (Auto) Absolute Nucleated RBC Immature Gran % Nucleated RBC % Sodium 156 H 155 H 155 H Potassium Chloride Carbon Dioxide Anion Gap BUN Creatinine Estim Creat Clear Calc eGFR BUN/Creatinine Ratio Glucose Calculated Osmolality Lactic Acid Calcium Corrected Calcium Phosphorus Magnesium Total Bilirubin AST ALT Alkaline Phosphatase Ammonia Total Protein Albumin Globulin Albumin/Globulin Ratio Vitamin B12 Folate TSH Syphilis Serology Hepatitis A IgM Ab Hep Bs Antigen Hep B Core IgM Ab Hepatitis C Antibody 07/13/24 07/13/24 07/13/24 04:32 08:00 10:12 WBC 31.4 H RBC 3.72 L Hgb 9.6 L Hct 32.0 L MCV 86 MCH 25.8 MCHC 30.0 L RDW Std Deviation 52.9 H Plt Count 464 H D Neut % (Auto) 91 H Lymph % (Auto) 5 L [place] % (Auto) 3 Eos % (Auto) 1 Baso % (Auto) 0 Neut # (Auto) 28.7 H Lymph # (Auto) 1.4 [place] # (Auto) 0.8 Eos # (Auto) 0.2 Baso # (Auto) 0.1 Immature Gran # (Auto) 0.25 H Absolute Nucleated RBC 0.00 Immature Gran % 1 H Nucleated RBC % 0 Sodium 156 H 156 H 160 H Potassium 3.4 D Chloride 116 H Carbon Dioxide 23.5 Anion Gap 17 H BUN 50 H Creatinine 2.4 H Estim Creat Clear Calc 22.9 L eGFR 30 L BUN/Creatinine Ratio 21 H Glucose 74 D Calculated Osmolality 321 H Lactic Acid 1.4 Calcium 9.4 Corrected Calcium 9.8 Phosphorus 3.9 Magnesium 2.0 Total Bilirubin 0.4 AST 16 ALT 21 Alkaline Phosphatase 77 Ammonia 20 Total Protein 7.3 Albumin 3.5 Globulin 3.8 H Albumin/Globulin Ratio 0.9 L Vitamin B12 692 Folate 19.72 TSH 1.36 Syphilis Serology Nonreactive Hepatitis A IgM Ab Non Reactive Hep Bs Antigen Non Reactive Hep B Core IgM Ab Non Reactive Hepatitis C Antibody Non Reactive ABG Interpretation ABG results: 07/09/24 14:42 ABG pH 7.47 H ABG pCO2 39 ABG pO2 54 L* ABG HCO3 29 H ABG O2 Saturation 89 L ABG Base Excess 5 H Quality Measures Quality Measures none Assessment & Plan Assessment Current Active Medications: Generic Name Dose Route Start Last Admin Trade Name Freq PRN Reason Stop Dose Admin Acetaminophen 650 mg 07/10/24 00:32 Acetaminophen Supp 650 Mg Supp RI 08/09/24 00:31 Q4HR PRN PAIN SCALE 1-3 (mild Acetaminophen 650 mg 07/10/24 17:23 07/12/24 06:05 Acetaminophen 325 Mg Tablet PO 08/09/24 00:31 650 mg Q4HR PRN Administration PAIN RATED 1-3OR FEVER > 101 Al Hydrox/Mg Hydrox/Simethicone 30 ml 07/10/24 00:32 Mg Hyd/Al Hyd/Brittany (Maalox Reg) Susp 30 Ml Udc PO 08/09/24 00:31 Q4HR PRN Heartburn or Upset Stomach Albuterol 2.5 mg 07/10/24 11:00 07/13/24 15:37 Albuterol Rt 2.5 Mg/0.5 Ml Nebu INH 08/09/24 10:59 2.5 mg Q4HRRT TOOTIE Administration Apixaban 5 mg 07/10/24 09:00 07/13/24 12:00 Apixaban 2.5 Mg Tablet PO 07/31/24 08:59 5 mg BID TOOTIE Administration Dextrose 25 ml 07/09/24 22:26 Dextrose 50%-Water Inj 50 Ml Syringe IV 08/08/24 22:25 Q15MIN PRN BG 50-70 responsive npo pt Dextrose 50 ml 07/09/24 22:26 Dextrose 50%-Water Inj 50 Ml Syringe IV 08/08/24 22:25 Q15MIN PRN BG <50 OR BG <70 & pt unresponsive Glucagon 1 mg 07/09/24 22:26 Glucagon Inj 1 Mg Vial IM Q15MIN PRN BG <70, and no IV access Dextrose 1,000 mls @ 20 mls/hr 07/12/24 03:30 07/12/24 03:46 D5w IV 08/11/24 03:29 Not Given .Q24H [facility] Insulin Glargine 16 unit 07/10/24 09:00 07/13/24 12:00 Insulin Glargine (Lantus) 5 Unit/0.05 Ml (Per 5 Units) SC 08/09/24 08:59 Not Given QDAY [facility] Insulin Human Lispro 0 unit 07/11/24 00:00 07/13/24 12:00 Insulin Lispro (Admelog) 1 Unit/0.01 Ml Unit SC 08/10/24 00:00 Not Given Q6HR [facility] Protocol Levofloxacin 250 mg 07/13/24 09:00 07/13/24 11:59 Levofloxacin 250 Mg Tablet PO 07/19/24 12:00 250 mg QDAY TOOTIE Administration Magnesium Hydroxide 30 ml 07/10/24 00:32 Milk Of Magnesia Susp 30 Ml Udc PO 08/09/24 00:31 QDAY PRN CONSTIPATION Ondansetron HCl 4 mg 07/09/24 22:15 Ondansetron Inj 2 Mg/Ml Inj 2 Ml IV 08/08/24 22:14 Q6H PRN NAUSEA OR VOMITING Protocol Oxycodone/Acetaminophen 1 tab 07/11/24 08:25 Oxycodone/Apap 5/325 Tablet GT 07/14/24 22:44 Q6HR PRN PAIN SCALE 4-10(Mod-Sev Pharmacy Consult 1 each 07/09/24 22:23 Pharmacy Renal Dose Adjustment 1 Ea XX 08/08/24 22:22 PRN PRN CONSULT Sodium Chloride 3 ml 07/10/24 10:40 07/13/24 15:37 Sodium Chloride Rt Erica 0.9% 3 Ml Nebu INH 08/09/24 10:39 3 ml PRN PRN Administration SOLN Plan Jamie Patiño is 63 yr male with PMH of MS, CVA with L/S hemiplegia, HTN, COPD, IDDM II, HLD, GERD, lower extremity contractures, who is also and bedridden, and non-verbal at baseline, BIBA from [facility] on 07/09/24 due to shortness of breath and hypoxia for past few days. Most history was obtained from chart review. At bedside he remains nonverbal. Nephrology was consutled for patient's BARBARA and hyperosmolar hypernatremia. #Hyperosmolar hypernatremia #BARBARA Initially presented with sodium of 165, BUN 86, Cr 2.2. Patient was started on D5W 45cc/hr and free water flushes 20cc/hr. Most likely due to poor oral intake and dehydration along with setting of patient's sepsis leading to hypoperfusion. Currently BUN/Cr 31 indicating pre renal etiology. -Goal sodium over next 24 hrs ~150. -Sodium checks every 3 hours -Free water deficit calculated to be 1.7 L for goal above -resume D5W maintainence at 50cc/hr -avoid nephrotoxic agents -daily CMP #Bilateral nonobstructing renal calculi #Right hydronephrosis #Acute metabolic encephalopathy 2/2 hypernatremia and sepsis #Severe sepsis 2/2 Pyelonephritis #Lactic acidosis #Hx of PE on Eliquis #Acute hypoxic respiratory failure on high flow NC #Pylonephritis #Anemia chronic disease #Leukocytosis 2/2 Pyelonephritis #Acute anemia/thrombocytosis in setting of severe dehydration #IDDM II #PEG tube feeding -Continue care as per primary care team. The patient's management plan was discussed with my attending physician Dr. Gomez. Louann Rucker, PGY-1 Attending Provider Attestation/Addendum Pt ssen and examined. Labs are reviewed. Agree with assessment and plan and findings by Resident Please call at [phone] if have any question Glen Gomez MD
[2024-07-13 16:55] LABS: Sodium 159 mMol/L (136-145)
--- NOTE | 2024-07-13 16:56 | ESPR_ITS ---
<Statement entered by Josué Ruff MD - 07/13/24 17:32> Patient was seen and examined at the bedside. 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 Sodium has been uptrending therefore we will start a water flushes at 40 cc/h. We repeated the blood cultures and order cocci serology. Will follow with ID recommendation tomorrow and continue with Levaquin for now. Will try reaching out family tomorrow to discuss regarding patient's current condition. All labs and orders were reviewed. I saw and examined the patient, and I agree with current management stated by Dr Cabrera MD,PGY1. Plan of care was discussed with the attending physician and resident physician. Disclaimer: Despite multiple revisions, due to the dictation software being used, the document bellow may not be free of grammatical errors including phonetic/typographic errors. However, this does not deter from our commitment to providing health care in the patient's best interest in mind. Dr. Elzbieta MD, PGY 2 Documentation for date of: 07/13/24 Subjective Subjective Interval history: No acute overnight events reported however reviewing patient's vitals patient had a febrile episode with temperature of 101F. Patient's leukocytosis is uptrending although patient's antibiotic was changed yesterday from Zosyn plus Doxy to levofloxacin. Patient's fluids including free water flushes as well as tube feedings were stopped yesterday and 60 mg of Lasix total was given throughout the day as patient appeared to have increased secretions and crackles on lung auscultation. Today creatinine went from 2.2 to 2.4. Patient's repeat chest x-ray appears to be much better than previous chest x-rays and sodium this morning is 156 therefore we will continue to hold D5W will start free water flushes through the G-tube at 30 cc/h. Will continue to monitor sodium every 4 hours Exam Vital Signs Temp Pulse Resp BP Pulse Ox O2 Del Method O2 Flow Rate 98.8 F 120 H 28 H 118/63 96 High Flow Nasal Cannula 07/13/24 04:00 07/13/24 15:41 07/13/24 15:41 07/13/24 04:00 07/13/24 15:41 07/12/24 16:00 07/13/24 15:41 FiO2 60 07/13/24 15:41 Narrative Exam GENERAL: Not in acute distress, saturating via oxymask NEURO: no focal neurological deficits HEENT: Atraumatic, Normocephalic. mucous membranes moist. Eyes open, anisocoria noted (left pupil dilated) HEART: Normal Heart Sounds LUNGS: mild crackles at the base of lungs ABDOMEN: soft, non-distended, non-tender, bowel sounds heard, no guarding or rebound tenderness, PEG tube in place SKIN: No Rash or ecchymoses EXTREMITIES: contracted upper and lower extremities Objective Labs 07/14/24 05:41 07/14/24 05:41 Labs: Laboratory Results - last 24 hr 07/12/24 07/13/24 07/13/24 19:19 00:33 04:32 WBC 31.4 H RBC 3.72 L Hgb 9.6 L Hct 32.0 L MCV 86 MCH 25.8 MCHC 30.0 L RDW Std Deviation 52.9 H Plt Count 464 H D Neut % (Auto) 91 H Lymph % (Auto) 5 L [place] % (Auto) 3 Eos % (Auto) 1 Baso % (Auto) 0 Neut # (Auto) 28.7 H Lymph # (Auto) 1.4 [place] # (Auto) 0.8 Eos # (Auto) 0.2 Baso # (Auto) 0.1 Immature Gran # (Auto) 0.25 H Absolute Nucleated RBC 0.00 Immature Gran % 1 H Nucleated RBC % 0 Sodium 155 H 155 H 156 H Potassium 3.4 D Chloride 116 H Carbon Dioxide 23.5 Anion Gap 17 H BUN 50 H Creatinine 2.4 H Estim Creat Clear Calc 22.9 L eGFR 30 L BUN/Creatinine Ratio 21 H Glucose 74 D Calculated Osmolality 321 H Lactic Acid Calcium 9.4 Corrected Calcium 9.8 Phosphorus 3.9 Magnesium 2.0 Total Bilirubin 0.4 AST 16 ALT 21 Alkaline Phosphatase 77 Ammonia 20 Total Protein 7.3 Albumin 3.5 Globulin 3.8 H Albumin/Globulin Ratio 0.9 L Vitamin B12 692 Folate 19.72 TSH 1.36 Syphilis Serology Nonreactive Hepatitis A IgM Ab Non Reactive Hep Bs Antigen Non Reactive Hep B Core IgM Ab Non Reactive Hepatitis C Antibody Non Reactive 07/13/24 07/13/24 07/13/24 08:00 10:12 16:17 WBC RBC Hgb Hct MCV MCH MCHC RDW Std Deviation Plt Count Neut % (Auto) Lymph % (Auto) [place] % (Auto) Eos % (Auto) Baso % (Auto) Neut # (Auto) Lymph # (Auto) [place] # (Auto) Eos # (Auto) Baso # (Auto) Immature Gran # (Auto) Absolute Nucleated RBC Immature Gran % Nucleated RBC % Sodium 156 H 160 H 159 H Potassium Chloride Carbon Dioxide Anion Gap BUN Creatinine Estim Creat Clear Calc eGFR BUN/Creatinine Ratio Glucose Calculated Osmolality Lactic Acid 1.4 Calcium Corrected Calcium Phosphorus Magnesium Total Bilirubin AST ALT Alkaline Phosphatase Ammonia Total Protein Albumin Globulin Albumin/Globulin Ratio Vitamin B12 Folate TSH Syphilis Serology Hepatitis A IgM Ab Hep Bs Antigen Hep B Core IgM Ab Hepatitis C Antibody ABG Interpretation ABG results: 07/09/24 14:42 ABG pH 7.47 H ABG pCO2 39 ABG pO2 54 L* ABG HCO3 29 H ABG O2 Saturation 89 L ABG Base Excess 5 H Quality Measures Quality Measures none Assessment & Plan Assessment Current Active Medications: Generic Name Dose Route Start Last Admin Trade Name Freq PRN Reason Stop Dose Admin Acetaminophen 650 mg 07/10/24 00:32 Acetaminophen Supp 650 Mg Supp OK 08/09/24 00:31 Q4HR PRN PAIN SCALE 1-3 (mild Acetaminophen 650 mg 07/10/24 17:23 07/12/24 06:05 Acetaminophen 325 Mg Tablet PO 08/09/24 00:31 650 mg Q4HR PRN Administration PAIN RATED 1-3OR FEVER > 101 Al Hydrox/Mg Hydrox/Simethicone 30 ml 07/10/24 00:32 Mg Hyd/Al Hyd/Brittany (Maalox Reg) Susp 30 Ml Udc PO 08/09/24 00:31 Q4HR PRN Heartburn or Upset Stomach Albuterol 2.5 mg 07/10/24 11:00 07/13/24 15:37 Albuterol Rt 2.5 Mg/0.5 Ml Nebu INH 08/09/24 10:59 2.5 mg Q4HRRT TOOTIE Administration Apixaban 5 mg 07/10/24 09:00 07/13/24 12:00 Apixaban 2.5 Mg Tablet PO 07/31/24 08:59 5 mg BID TOOTIE Administration Dextrose 25 ml 07/09/24 22:26 Dextrose 50%-Water Inj 50 Ml Syringe IV 08/08/24 22:25 Q15MIN PRN BG 50-70 responsive npo pt Dextrose 50 ml 07/09/24 22:26 Dextrose 50%-Water Inj 50 Ml Syringe IV 08/08/24 22:25 Q15MIN PRN BG <50 OR BG <70 & pt unresponsive Glucagon 1 mg 07/09/24 22:26 Glucagon Inj 1 Mg Vial IM Q15MIN PRN BG <70, and no IV access Dextrose 1,000 mls @ 20 mls/hr 07/12/24 03:30 07/12/24 03:46 D5w IV 08/11/24 03:29 Not Given .Q24H [facility] Insulin Glargine 16 unit 07/10/24 09:00 07/13/24 12:00 Insulin Glargine (Lantus) 5 Unit/0.05 Ml (Per 5 Units) SC 08/09/24 08:59 Not Given QDAY [facility] Insulin Human Lispro 0 unit 07/11/24 00:00 07/13/24 12:00 Insulin Lispro (Admelog) 1 Unit/0.01 Ml Unit SC 08/10/24 00:00 Not Given Q6HR [facility] Protocol Levofloxacin 250 mg 07/13/24 09:00 07/13/24 11:59 Levofloxacin 250 Mg Tablet PO 07/19/24 12:00 250 mg QDAY TOOTIE Administration Magnesium Hydroxide 30 ml 07/10/24 00:32 Milk Of Magnesia Susp 30 Ml Udc PO 08/09/24 00:31 QDAY PRN CONSTIPATION Ondansetron HCl 4 mg 07/09/24 22:15 Ondansetron Inj 2 Mg/Ml Inj 2 Ml IV 08/08/24 22:14 Q6H PRN NAUSEA OR VOMITING Protocol Oxycodone/Acetaminophen 1 tab 07/11/24 08:25 Oxycodone/Apap 5/325 Tablet GT 07/14/24 22:44 Q6HR PRN PAIN SCALE 4-10(Mod-Sev Pharmacy Consult 1 each 07/09/24 22:23 Pharmacy Renal Dose Adjustment 1 Ea XX 08/08/24 22:22 PRN PRN CONSULT Sodium Chloride 3 ml 07/10/24 10:40 07/13/24 15:37 Sodium Chloride Rt Erica 0.9% 3 Ml Nebu INH 08/09/24 10:39 3 ml PRN PRN Administration SOLN Plan Mr. Patiño is a 63-year-old with past medical history significant for multiple sclerosis, history of CVA with left-sided hemiplegia, hypertension, COPD, type 2 diabetes, hyperlipidemia, GERD was admitted to the ICU on 07/09 from [facility] due to shortness of breath and hypoxia. Patient was also found to have severe sepsis secondary to pneumonia and pyelonephritis as well as patient was found to have hypernatremia. Pt was admitted to ICU on 07/09 and downgraded to floors on 07/11 for continued management #Sepsis, severe likely secondary to Community-acquired pneumonia versus UTI #CAP likely secondary to ESBL Klebsiella and/or MDR Pseudomonas #UTI secondary to MDR Pseudomonas #Pyelonephritis #Lactic acidosis, LA 2.3 today -on admission pt was tachycardic, tachyapnic and had fever of 101.5 and leukocytosis (WBC 32.2) -lactic acid 2.3 -Chest CT is evident of bibasilar pneunomina, significant left base -supplemental oxygen as needed -blood culture no growth after 48 hrs -MRSA nares positive -Sputum culture grew klebsiella and pseudomonas -urine culture positive pseudomonas -Switched zosyn and doxycline due to cultures to levoquin on 07/12- -ID consulted, appreciate recommendations #Acute encephalopathy secondary to metabolic versus toxic metabolic causes #Hypernatremia -on admission Na was 164, Pt was started on D5W40 to slowly correct the sodium -Free water deficit is 3.4L -Will continue to hold D5W for now, will resume free water flushes 30cc/hr -monitor Na Q4H #Acute kidney injury #Nephrolithiasis, bilateral non-obstructing #Hydronephrosis, right likely secondary to above -likely prerenal in the setting of dehydration -increased free water flushes with PEG tube feedings -Nephrology Dr Gomez consulted, recommendations appreciated # Anemia, normocytic likely secondary to anemia of chronic disease -Hgb 10.0, Hct 33, MCV 87 -No signs of active bleeding, likely dilutional anemia -will continue to monitor daily cbc #Insulin dependent type 2 Diabetes -A1c 8.6 on 07/10 -Pt's home regimen is glargine 16 units daily -Pt is started on insulin sliding scale #Hx. of Pulmonary embolism -Pt's home eliquis is resumed Health Maintenance Disposition: telemetry DVT Prophylaxis: Pt is on eliquis for hx. of PE and SCD's Qshift GI Prophylaxis: Pantoprozol-40 IV Qday Diet: PEG tube feeds resume with rate is 35ml/h with 150 cc free water flushes (goal rate of 65/h) -on hold Lines: Peripheral lines Code status: Full Assessment and plan discussed with my senior resident Dr. Ruff & attending physician Dr. Julio Rees (PGY-1)- Internal medicine resident Attending Provider Attestation/Addendum I have examined the patient, reviewed labs and imaging findings, discussed the case with the resident(s), and reviewed entered orders. I agree with the plan of care as outlined in this note, with these additional summaries/recommendations: Patient seen at bedside. No acute overnight events. Patient is nonverbal and no history can be obtained at this time. Patient continues to have severe acute hypoxic respiratory failure still requiring high flow nasal cannula secondary to bibasilar pneumonia which is most significant in the left base. Chest x-ray was obtained today which showed significant bilateral pneumonia with associated heart failure. Sputum culture grew Klebsiella pneumonia and Pseudomonas aeruginosa. Infectious disease following and patient titrated to Levaquin. Patient was febrile again overnight and WBC count has increased. If fever persist we will consider broadening antibiotics back to Zosyn. Continue to wean O2 supplementation and no evidence of hypercapnia on previous ABG. Continue Levaquin for urinary tract infection as well. Urine culture grew Pseudomonas. Patient was also noted to have severe hyponatremia on admission which has improved to 156 this morning although at 10 AM repeat level is 160. IV fluids and free water flushes previously turned off for fluid overload. Patient is still fluid overload although given the life-threatening nature of hyponatremia we will restart free water flushes and follow-up with nephrology. Continue to trend sodium. BARBARA still and appreciate nephro recs. Renally dose medications and avoid nephrotoxic agents. Continue Eliquis for history of pulmonary embolism. Continue insulin sliding scale with basal insulin for history of diabetes mellitus type 2. A1c 8.6%. Overall prognosis remains guarded at this time. Repeat hematology and chemistry panel in AM. Dr. Julio MD
[2024-07-13 16:59] LABS: HIV (1&2) Antibody Rapid Non-Reactive
--- NOTE | 2024-07-13 17:04 | PC.SS ---
E-mail for patient's daughter, Violeta Georges: [email or web address]
[2024-07-13 21:37] LABS: Sodium 163 mMol/L (136-145)
[2024-07-13] MEDS: DEXTROSE 5%-WATER 500 ML 40 ML IV (22:13)
[2024-07-14] VITALS (22 sets, daily range): BP systolic 112–129; BP diastolic 57–77; PULSE 93–128; RESP 19–47; TEMP 35.9–39.7; O2SAT 93–99; BMI 15.9
[2024-07-14] MEDS: ACETAMINOPHEN 325 MG TABLET 650 MG PO (01:22)
[2024-07-14 01:39] LABS: Sodium 159 mMol/L (136-145)
[2024-07-14] MEDS: ALBUTEROL RT 2.5 MG/0.5 ML NEBU INH ×6 (02:47→22:05)
[2024-07-14] MEDS: SODIUM CHLORIDE RT SOL 0.9% 3 ML NEBU INH ×3 (02:47→15:03)
[2024-07-14] MEDS: INSULIN LISPRO (AdmeLOG) 1 UNIT/0.01 ML UNIT SC ×3 (05:51→17:17)
[2024-07-14 06:26] LABS: Basophils # (Auto) 0.1 Thou/mm3 (0.0-0.2); Basophils % (Auto) 0 % (0-2.5); Eosinophils % (Auto) 0 % (0-10); Hematocrit 30.4 % (41.0-53.0); Immature Granulocytes % (Auto) 1 % (0-0); Immature Granulocytes Auto 0.17 Thou/mm3 (0.00-0.00); Lymphocytes # (Auto) 1.4 Thou/mm3 (1.0-4.8); Lymphocytes % (Auto) 4 % (10-50); Mean Corpuscular HGB Conc 29.6 g/dl (31.0-37.0); Mean Corpuscular Hemoglobin 26.2 pg (25.0-35.0); Mean Corpuscular Volume 88 fL (80-100); Monocytes # (Auto) 1.1 Thou/mm3 (0.0-0.8); Monocytes % (Auto) 4 % (0-12); Neutrophils # (Auto) 28.6 Thou/mm3 (1.8-7.7); Neutrophils % (Auto) 91 % (37-80); Nucleated Red Blood Cell # 0.02 Thou/mm3 (0.00-0.00); Nucleated Red Blood Cell % 0 /100 WBC (0); Platelet Count 421 Thou/mm3 (140-440); RDW Standard Deviation 55.6 fL (35.1-43.9); Red Blood Count 3.44 Miln/mm3 (4.50-5.90); White Blood Count 31.3 Thou/mm3 (3.8-10.6)
[2024-07-14 07:05] LABS: Anion Gap 16 (7-16); Blood Urea Nitrogen 61 mg/dL (9-23); Carbon Dioxide 21.9 mMol/L (20.0-31.0); Chloride 117 mMol/L (98-107); Creatinine (Component) 2.8 mg/dL (0.6-1.3); Potassium 3.7 mMol/L (3.4-5.1); Sodium 155 mMol/L (136-145)
[2024-07-14 07:06] LABS: Alanine Aminotransferase 16 U/L (10-49); Albumin, Serum 3.3 gm/dL (3.4-4.8); Albumin/Globulin Ratio 0.9 (1.2-2.2); Alkaline Phosphatase 74 U/L (46-116); Aspartate Amino Transferase 13 U/L (0-34); BUN/Creatinine Ratio 22 Ratio (12-20); Bilirubin,Total 0.4 mg/dL (0.3-1.2); Calcium (Corrected) 9.6 mg/dL (8.5-10.1); Estimated Creatinine Clearance 19.8 mL/min (>60); Globulin 3.7 gm/dL (2.3-3.5); Glucose 286 mg/dL (74-106); Magnesium 2.2 mg/dL (1.6-2.6); Osmolality,Calculated 334 (275-295); Phosphorous 4.8 mg/dL (2.4-5.1); eGFR 25 See Note
[2024-07-14 08:26] LABS: Lactate (Lactic Acid) 1.4 mMol/L (0.4-2.0)
[2024-07-14 08:45] LABS: Sodium 155 mMol/L (136-145)
[2024-07-14] MEDS: LEVOFLOXACIN 250 MG TABLET PO (09:52)
[2024-07-14] MEDS: INSULIN GLARGINE (Lantus) 5 UNIT/0.05 ML (PER 5 UNITS) 16 UNIT SC (09:52)
[2024-07-14] MEDS: APIXABAN 2.5 MG TABLET 5 MG PO ×2 (09:52→20:46)
--- NOTE | 2024-07-14 10:35 | PD.IDPROG ---
Subjective Subjective Interval history: milady noted. continued fever too. Exam Vital Signs Temp Pulse Resp BP Pulse Ox O2 Del Method O2 Flow Rate 96.6 F L 99 19 129/74 95 High Flow Nasal Cannula 07/14/24 08:00 07/14/24 08:00 07/14/24 08:00 07/14/24 08:00 07/14/24 08:00 07/14/24 08:00 07/14/24 08:00 FiO2 60 07/14/24 08:00 Narrative Exam remains non interactive. limited options noted . may not be absorbing well via gi route. Objective - Internal Medicine Labs 07/14/24 05:41 07/14/24 08:06 Labs: Laboratory Results - last 24 hr 07/13/24 07/13/24 07/13/24 04:32 10:12 16:17 WBC RBC Hgb Hct MCV MCH MCHC RDW Std Deviation Plt Count Neut % (Auto) Lymph % (Auto) [place] % (Auto) Eos % (Auto) Baso % (Auto) Neut # (Auto) Lymph # (Auto) [place] # (Auto) Eos # (Auto) Baso # (Auto) Immature Gran # (Auto) Absolute Nucleated RBC Immature Gran % Nucleated RBC % Sodium 160 H 159 H Potassium Chloride Carbon Dioxide Anion Gap BUN Creatinine Estim Creat Clear Calc eGFR BUN/Creatinine Ratio Glucose Calculated Osmolality Lactic Acid Calcium Corrected Calcium Phosphorus Magnesium Total Bilirubin AST ALT Alkaline Phosphatase Total Protein Albumin Globulin Albumin/Globulin Ratio HIV 1&2 Antibody Rapid Non-Reactive 07/13/24 07/14/24 07/14/24 20:55 01:13 05:41 WBC 31.3 H RBC 3.44 L Hgb 9.0 L Hct 30.4 L MCV 88 MCH 26.2 MCHC 29.6 L RDW Std Deviation 55.6 H Plt Count 421 D Neut % (Auto) 91 H Lymph % (Auto) 4 L [place] % (Auto) 4 Eos % (Auto) 0 Baso % (Auto) 0 Neut # (Auto) 28.6 H Lymph # (Auto) 1.4 [place] # (Auto) 1.1 H Eos # (Auto) 0.0 Baso # (Auto) 0.1 Immature Gran # (Auto) 0.17 H Absolute Nucleated RBC 0.02 H Immature Gran % 1 H Nucleated RBC % 0 Sodium 163 H* 159 H 155 H Potassium 3.7 Chloride 117 H Carbon Dioxide 21.9 Anion Gap 16 BUN 61 H Creatinine 2.8 H Estim Creat Clear Calc 19.8 L eGFR 25 L BUN/Creatinine Ratio 22 H Glucose 286 H D Calculated Osmolality 334 H Lactic Acid Calcium 9.0 Corrected Calcium 9.6 Phosphorus 4.8 Magnesium 2.2 Total Bilirubin 0.4 AST 13 ALT 16 Alkaline Phosphatase 74 Total Protein 7.0 Albumin 3.3 L Globulin 3.7 H Albumin/Globulin Ratio 0.9 L HIV 1&2 Antibody Rapid 07/14/24 08:06 WBC RBC Hgb Hct MCV MCH MCHC RDW Std Deviation Plt Count Neut % (Auto) Lymph % (Auto) [place] % (Auto) Eos % (Auto) Baso % (Auto) Neut # (Auto) Lymph # (Auto) [place] # (Auto) Eos # (Auto) Baso # (Auto) Immature Gran # (Auto) Absolute Nucleated RBC Immature Gran % Nucleated RBC % Sodium 155 H Potassium Chloride Carbon Dioxide Anion Gap BUN Creatinine Estim Creat Clear Calc eGFR BUN/Creatinine Ratio Glucose Calculated Osmolality Lactic Acid 1.4 Calcium Corrected Calcium Phosphorus Magnesium Total Bilirubin AST ALT Alkaline Phosphatase Total Protein Albumin Globulin Albumin/Globulin Ratio HIV 1&2 Antibody Rapid ABG Interpretation ABG results: 07/09/24 14:42 ABG pH 7.47 H ABG pCO2 39 ABG pO2 54 L* ABG HCO3 29 H ABG O2 Saturation 89 L ABG Base Excess 5 H Assessment & Plan A&P Narrative prior cva and [place] residence. is a full code nontheless. cocci possible in immobile persons, but not as likely hx of ms with contractures diffusely and not interactive no objection to levaquin alone. will try 250/day and change to iv. levaquin also good for most resp infections. continued fever suggests that either we have the wrong source or pt not taking/absorbing rx . urine infections are one way processes. imaging noted. prior sputum and urine noted. on 60% high flow Time Spent With Patient Time: Total time spent is greater than 50% in coordination of care (as documented) at patient's floor/unit and/or counseling patient:
--- NOTE | 2024-07-14 11:36 | PC.SS ---
Rounding: Pt spiked fever, pending blood cultures
--- NOTE | 2024-07-14 12:00 | PD.RESPRO ---
Documentation for date of: 07/14/24 Subjective Subjective Interval history: Patient examined at bedside. Overnight, there was spiked fever of 103. Tube feeds were resumed and D5W was restarted yesterday. Today hypernatremia improving to 155 with the D5W. However, BARBARA has worsened with Cr of 2.8. Will increase rate of D5w to 75cc/hr. Potassium, magnesium, phosphate remain within normal limits. Continue monitoring CMP. Exam Vital Signs Temp Pulse Resp BP Pulse Ox O2 Del Method O2 Flow Rate 96.6 F L 95 34 H 129/74 96 High Flow Nasal Cannula 20 07/14/24 08:00 07/14/24 10:43 07/14/24 10:43 07/14/24 08:00 07/14/24 10:43 07/14/24 08:00 07/14/24 10:43 FiO2 60 07/14/24 10:43 Narrative Exam General:Adult male, nonverbal/bedbound unable to follow command, on high flow HEENT: NCAT, No JVD noted. Mucosa moist. Pupils are equal and reactive to light bilaterally Cardiovascular: Normal S1 and S2. Regular rate and rhythm. Respiratory: Lungs are clear to auscultation bilaterally. No wheezing or crackles heard. Abdomen: Soft, nontender, not distended, normal bowel sounds. Skin: Warm to touch, dry, no rashes noted Musculoskeletal: No gross injuries. No pitting edema, feet placed in waffle cushion Neuro: opens eyes to name, does not follow commands Psych: unable to assess Objective Labs 07/15/24 05:47 07/15/24 15:48 Labs: Laboratory Results - last 24 hr 07/13/24 07/13/24 07/13/24 04:32 16:17 20:55 WBC RBC Hgb Hct MCV MCH MCHC RDW Std Deviation Plt Count Neut % (Auto) Lymph % (Auto) [place] % (Auto) Eos % (Auto) Baso % (Auto) Neut # (Auto) Lymph # (Auto) [place] # (Auto) Eos # (Auto) Baso # (Auto) Immature Gran # (Auto) Absolute Nucleated RBC Immature Gran % Nucleated RBC % Sodium 159 H 163 H* Potassium Chloride Carbon Dioxide Anion Gap BUN Creatinine Estim Creat Clear Calc eGFR BUN/Creatinine Ratio Glucose Calculated Osmolality Lactic Acid Calcium Corrected Calcium Phosphorus Magnesium Total Bilirubin AST ALT Alkaline Phosphatase Total Protein Albumin Globulin Albumin/Globulin Ratio HIV 1&2 Antibody Rapid Non-Reactive 07/14/24 07/14/24 07/14/24 01:13 05:41 08:06 WBC 31.3 H RBC 3.44 L Hgb 9.0 L Hct 30.4 L MCV 88 MCH 26.2 MCHC 29.6 L RDW Std Deviation 55.6 H Plt Count 421 D Neut % (Auto) 91 H Lymph % (Auto) 4 L [place] % (Auto) 4 Eos % (Auto) 0 Baso % (Auto) 0 Neut # (Auto) 28.6 H Lymph # (Auto) 1.4 [place] # (Auto) 1.1 H Eos # (Auto) 0.0 Baso # (Auto) 0.1 Immature Gran # (Auto) 0.17 H Absolute Nucleated RBC 0.02 H Immature Gran % 1 H Nucleated RBC % 0 Sodium 159 H 155 H 155 H Potassium 3.7 Chloride 117 H Carbon Dioxide 21.9 Anion Gap 16 BUN 61 H Creatinine 2.8 H Estim Creat Clear Calc 19.8 L eGFR 25 L BUN/Creatinine Ratio 22 H Glucose 286 H D Calculated Osmolality 334 H Lactic Acid 1.4 Calcium 9.0 Corrected Calcium 9.6 Phosphorus 4.8 Magnesium 2.2 Total Bilirubin 0.4 AST 13 ALT 16 Alkaline Phosphatase 74 Total Protein 7.0 Albumin 3.3 L Globulin 3.7 H Albumin/Globulin Ratio 0.9 L HIV 1&2 Antibody Rapid ABG Interpretation ABG results: 07/09/24 14:42 ABG pH 7.47 H ABG pCO2 39 ABG pO2 54 L* ABG HCO3 29 H ABG O2 Saturation 89 L ABG Base Excess 5 H Quality Measures Quality Measures none Assessment & Plan Assessment Current Active Medications: Generic Name Dose Route Start Last Admin Trade Name Freq PRN Reason Stop Dose Admin Acetaminophen 650 mg 07/10/24 00:32 Acetaminophen Supp 650 Mg Supp OK 08/09/24 00:31 Q4HR PRN PAIN SCALE 1-3 (mild Acetaminophen 650 mg 07/10/24 17:23 07/14/24 01:22 Acetaminophen 325 Mg Tablet PO 08/09/24 00:31 650 mg Q4HR PRN Administration PAIN RATED 1-3OR FEVER > 101 Al Hydrox/Mg Hydrox/Simethicone 30 ml 07/10/24 00:32 Mg Hyd/Al Hyd/Brittany (Maalox Reg) Susp 30 Ml Udc PO 08/09/24 00:31 Q4HR PRN Heartburn or Upset Stomach Albuterol 2.5 mg 07/10/24 11:00 07/14/24 10:40 Albuterol Rt 2.5 Mg/0.5 Ml Nebu INH 08/09/24 10:59 2.5 mg Q4HRRT TOOTIE Administration Apixaban 5 mg 07/10/24 09:00 07/14/24 09:52 Apixaban 2.5 Mg Tablet PO 07/31/24 08:59 5 mg BID TOOTIE Administration Dextrose 25 ml 07/09/24 22:26 Dextrose 50%-Water Inj 50 Ml Syringe IV 08/08/24 22:25 Q15MIN PRN BG 50-70 responsive npo pt Dextrose 50 ml 07/09/24 22:26 Dextrose 50%-Water Inj 50 Ml Syringe IV 08/08/24 22:25 Q15MIN PRN BG <50 OR BG <70 & pt unresponsive Glucagon 1 mg 07/09/24 22:26 Glucagon Inj 1 Mg Vial IM Q15MIN PRN BG <70, and no IV access Dextrose 1,000 mls @ 20 mls/hr 07/12/24 03:30 07/12/24 03:46 D5w IV 08/11/24 03:29 Not Given .Q24H TOOTIE Levofloxacin/Dextrose 250 mg in 50 mls @ 50 mls/hr 07/15/24 09:00 Levaquin Ivpb IV 07/22/24 08:59 QDAY TOOTIE Dextrose 500 mls @ 50 mls/hr 07/14/24 11:06 D5w IV 08/13/24 11:05 .Q10H TOOTIE Insulin Glargine 16 unit 07/10/24 09:00 07/14/24 09:52 Insulin Glargine (Lantus) 5 Unit/0.05 Ml (Per 5 Units) SC 08/09/24 08:59 16 unit QDAY TOOTIE Administration Insulin Human Lispro 0 unit 07/11/24 00:00 07/14/24 05:51 Insulin Lispro (Admelog) 1 Unit/0.01 Ml Unit SC 08/10/24 00:00 3 unit Q6HR TOOTIE Administration Protocol Magnesium Hydroxide 30 ml 07/10/24 00:32 Milk Of Magnesia Susp 30 Ml Udc PO 08/09/24 00:31 QDAY PRN CONSTIPATION Ondansetron HCl 4 mg 07/09/24 22:15 Ondansetron Inj 2 Mg/Ml Inj 2 Ml IV 08/08/24 22:14 Q6H PRN NAUSEA OR VOMITING Protocol Oxycodone/Acetaminophen 1 tab 07/11/24 08:25 Oxycodone/Apap 5/325 Tablet GT 07/14/24 22:44 Q6HR PRN PAIN SCALE 4-10(Mod-Sev Pharmacy Consult 1 each 07/09/24 22:23 Pharmacy Renal Dose Adjustment 1 Ea XX 08/08/24 22:22 PRN PRN CONSULT Sodium Chloride 3 ml 07/10/24 10:40 07/14/24 10:41 Sodium Chloride Rt Erica 0.9% 3 Ml Nebu INH 08/09/24 10:39 3 ml PRN PRN Administration SOLN Plan Jamie Patiño is 63 yr male with PMH of MS, CVA with L/S hemiplegia, HTN, COPD, IDDM II, HLD, GERD, lower extremity contractures, who is also and bedridden, and non-verbal at baseline, BIBA from [facility] on 07/09/24 due to shortness of breath and hypoxia for past few days. Most history was obtained from chart review. At bedside he remains nonverbal. Nephrology was consutled for patient's BARBARA and hyperosmolar hypernatremia. #Hyperosmolar hypernatremia #BARBARA Initially presented with sodium of 165, BUN 86, Cr 2.2. Patient was started on D5W 45cc/hr and free water flushes 20cc/hr. Most likely due to poor oral intake and dehydration along with setting of patient's sepsis leading to hypoperfusion. Currently BUN/Cr 31 indicating pre renal etiology. -Goal sodium over next 24 hrs ~150. -Sodium checks every 4 hours -Free water deficit calculated to be apprx 1 L for goal above -increase D5W maintainence to 75cc/hr -avoid nephrotoxic agents -daily CMP #Bilateral nonobstructing renal calculi #Right hydronephrosis #Acute metabolic encephalopathy 2/2 hypernatremia and sepsis #Severe sepsis 2/2 Pyelonephritis #Lactic acidosis #Hx of PE on Eliquis #Acute hypoxic respiratory failure on high flow NC #Pylonephritis #Anemia chronic disease #Leukocytosis 2/2 Pyelonephritis #Acute anemia/thrombocytosis in setting of severe dehydration #IDDM II #PEG tube feeding -Continue care as per primary care team. The patient's management plan was discussed with my attending physician Dr. Gomez. Louann Rucker, PGY-1 Attending Provider Attestation/Addendum Pt ssen and examined. Labs are reviewed. Agree with assessment and plan and findings by Resident Please call at [phone] if have any question Glen Gomez MD
[2024-07-14] MEDS: DEXTROSE 5%-WATER 1,000 ML 50 ML IV (12:10)
--- NOTE | 2024-07-14 12:30 | CHAP ---
Patient was visited by the Spiritual Care Volunteer who prayed for them. (Volunteer was in the hospital from 09:30-12:30)
[2024-07-14 13:04] LABS: Cocci Serology, IgM Positive (Negative)
[2024-07-14 13:05] LABS: Cocid Sro, CF/ID (UCD) NO CHG* See Sep Rpt
[2024-07-14 14:08] LABS: Sodium 153 mMol/L (136-145)
[2024-07-14] MEDS: FLUCONAZOLE 100 MG TABLET 200 MG PO (14:58)
--- NOTE | 2024-07-14 17:59 | ESPR_ITS ---
<Statement entered by Josué Ruff MD - 07/14/24 18:34> Patient was seen and examined at the bedside. Overnight, patient had fever spikes. Sodium went up as water flushes for not started by the nursing. Night resident initiated water flushes at 50 cc/h which we switched to 50 cc every 2 hourly and started D5 W at 50 cc/h as well. Sodium has been improving. Cocci came positive therefore fluconazole was started renally adjusted. Will continue with Levaquin and escalate antibiotic only if patient continues to have fever spike. Kidney functions remained worsening. Social workers were trying to reach out patient's daughter to explain current condition and have goals of care discussion with us. Will likely perform them tomorrow morning. All labs and orders were reviewed. I saw and examined the patient, and I agree with current management stated by Dr Cabrera MD,PGY1. Plan of care was discussed with the attending physician and resident physician. Disclaimer: Despite multiple revisions, due to the dictation software being used, the document bellow may not be free of grammatical errors including phonetic/typographic errors. However, this does not deter from our commitment to providing health care in the patient's best interest in mind. Dr. Elzbieta MD, PGY 2 Documentation for date of: 07/14/24 Subjective Subjective Interval history: Although orders were placed patient's water flushes were not started and overnight patient's sodium increased to 163 and patient was started on D5W by the overnight team. Patient also had spiking fever of 103.5 overnight. This morning patient's vitals are stable patient is also mildly tachycardic patient is saturating via high flow with FiO2 60%. Pt is still not responding to voice or painful stimuli. Repeat sodium is 153 therefore D5W is stopped and the patient's water flushes are resumed at 50 mL every 2 hours. Will continue to monitor with daily CMP. WBC remains elevated at 31.3 and hemoglobin is stable patient's creatinine is elevated at 2.8. Cocci IgM is positive therefore patient is started on fluconazole renally dosed. Will continue levofloxacin and closely monitor patient. Exam Vital Signs Temp Pulse Resp BP Pulse Ox O2 Del Method O2 Flow Rate 97.5 F 105 H 26 H 112/57 L 96 High Flow Nasal Cannula 20 07/14/24 16:00 07/14/24 16:00 07/14/24 16:00 07/14/24 12:00 07/14/24 16:00 07/14/24 16:00 07/14/24 16:00 FiO2 60 07/14/24 16:00 Narrative Exam GENERAL: Not in acute distress, saturating via oxymask NEURO: no focal neurological deficits HEENT: Atraumatic, Normocephalic. mucous membranes moist. Eyes open, anisocoria noted (left pupil dilated) HEART: Normal Heart Sounds LUNGS: mild crackles at the base of lungs ABDOMEN: soft, non-distended, non-tender, bowel sounds heard, no guarding or rebound tenderness, PEG tube in place SKIN: No Rash or ecchymoses EXTREMITIES: contracted upper and lower extremities Objective Labs 07/15/24 05:47 07/15/24 15:48 Labs: Laboratory Results - last 24 hr 07/13/24 07/13/24 07/14/24 11:43 20:55 01:13 WBC RBC Hgb Hct MCV MCH MCHC RDW Std Deviation Plt Count Neut % (Auto) Lymph % (Auto) [place] % (Auto) Eos % (Auto) Baso % (Auto) Neut # (Auto) Lymph # (Auto) [place] # (Auto) Eos # (Auto) Baso # (Auto) Immature Gran # (Auto) Absolute Nucleated RBC Immature Gran % Nucleated RBC % Sodium 163 H* 159 H Potassium Chloride Carbon Dioxide Anion Gap BUN Creatinine Estim Creat Clear Calc eGFR BUN/Creatinine Ratio Glucose Calculated Osmolality Lactic Acid Calcium Corrected Calcium Phosphorus Magnesium Total Bilirubin AST ALT Alkaline Phosphatase Total Protein Albumin Globulin Albumin/Globulin Ratio Coccidioides IgM Ab Positive A 07/14/24 07/14/24 07/14/24 05:41 08:06 13:16 WBC 31.3 H RBC 3.44 L Hgb 9.0 L Hct 30.4 L MCV 88 MCH 26.2 MCHC 29.6 L RDW Std Deviation 55.6 H Plt Count 421 D Neut % (Auto) 91 H Lymph % (Auto) 4 L [place] % (Auto) 4 Eos % (Auto) 0 Baso % (Auto) 0 Neut # (Auto) 28.6 H Lymph # (Auto) 1.4 [place] # (Auto) 1.1 H Eos # (Auto) 0.0 Baso # (Auto) 0.1 Immature Gran # (Auto) 0.17 H Absolute Nucleated RBC 0.02 H Immature Gran % 1 H Nucleated RBC % 0 Sodium 155 H 155 H 153 H Potassium 3.7 Chloride 117 H Carbon Dioxide 21.9 Anion Gap 16 BUN 61 H Creatinine 2.8 H Estim Creat Clear Calc 19.8 L eGFR 25 L BUN/Creatinine Ratio 22 H Glucose 286 H D Calculated Osmolality 334 H Lactic Acid 1.4 Calcium 9.0 Corrected Calcium 9.6 Phosphorus 4.8 Magnesium 2.2 Total Bilirubin 0.4 AST 13 ALT 16 Alkaline Phosphatase 74 Total Protein 7.0 Albumin 3.3 L Globulin 3.7 H Albumin/Globulin Ratio 0.9 L Coccidioides IgM Ab ABG Interpretation ABG results: 07/09/24 14:42 ABG pH 7.47 H ABG pCO2 39 ABG pO2 54 L* ABG HCO3 29 H ABG O2 Saturation 89 L ABG Base Excess 5 H Quality Measures Quality Measures VTE prophylaxis Assessment & Plan Assessment Current Active Medications: Generic Name Dose Route Start Last Admin Trade Name Freq PRN Reason Stop Dose Admin Acetaminophen 650 mg 07/10/24 00:32 Acetaminophen Supp 650 Mg Supp [place] 08/09/24 00:31 Q4HR PRN PAIN SCALE 1-3 (mild Acetaminophen 650 mg 07/10/24 17:23 07/14/24 01:22 Acetaminophen 325 Mg Tablet PO 08/09/24 00:31 650 mg Q4HR PRN Administration PAIN RATED 1-3OR FEVER > 101 Al Hydrox/Mg Hydrox/Simethicone 30 ml 07/10/24 00:32 Mg Hyd/Al Hyd/Brittany (Maalox Reg) Susp 30 Ml Udc PO 08/09/24 00:31 Q4HR PRN Heartburn or Upset Stomach Albuterol 2.5 mg 07/10/24 11:00 07/14/24 15:02 Albuterol Rt 2.5 Mg/0.5 Ml Nebu INH 08/09/24 10:59 2.5 mg Q4HRRT TOOTIE Administration Apixaban 5 mg 07/10/24 09:00 07/14/24 09:52 Apixaban 2.5 Mg Tablet PO 07/31/24 08:59 5 mg BID TOOTIE Administration Dextrose 25 ml 07/09/24 22:26 Dextrose 50%-Water Inj 50 Ml Syringe IV 08/08/24 22:25 Q15MIN PRN BG 50-70 responsive npo pt Dextrose 50 ml 07/09/24 22:26 Dextrose 50%-Water Inj 50 Ml Syringe IV 08/08/24 22:25 Q15MIN PRN BG <50 OR BG <70 & pt unresponsive Fluconazole 200 mg 07/14/24 14:45 07/14/24 14:58 Fluconazole 100 Mg Tablet PO 07/21/24 14:44 200 mg 1400 TOOTIE Administration Glucagon 1 mg 07/09/24 22:26 Glucagon Inj 1 Mg Vial IM Q15MIN PRN BG <70, and no IV access Levofloxacin/Dextrose 250 mg in 50 mls @ 50 mls/hr 07/15/24 09:00 Levaquin Ivpb IV 07/22/24 08:59 QDAY TOOTIE Dextrose 1,000 mls @ 50 mls/hr 07/14/24 12:15 07/14/24 12:10 D5w IV 08/13/24 12:14 50 mls/hr .Q20H TOOTIE Administration Insulin Glargine 16 unit 07/10/24 09:00 07/14/24 09:52 Insulin Glargine (Lantus) 5 Unit/0.05 Ml (Per 5 Units) SC 08/09/24 08:59 16 unit QDAY TOOTIE Administration Insulin Human Lispro 0 unit 07/11/24 00:00 07/14/24 17:17 Insulin Lispro (Admelog) 1 Unit/0.01 Ml Unit SC 08/10/24 00:00 2 unit Q6HR TOOTIE Administration Protocol Magnesium Hydroxide 30 ml 07/10/24 00:32 Milk Of Magnesia Susp 30 Ml Udc PO 08/09/24 00:31 QDAY PRN CONSTIPATION Ondansetron HCl 4 mg 07/09/24 22:15 Ondansetron Inj 2 Mg/Ml Inj 2 Ml IV 08/08/24 22:14 Q6H PRN NAUSEA OR VOMITING Protocol Oxycodone/Acetaminophen 1 tab 07/11/24 08:25 Oxycodone/Apap 5/325 Tablet GT 07/14/24 22:44 Q6HR PRN PAIN SCALE 4-10(Mod-Sev Pharmacy Consult 1 each 07/09/24 22:23 Pharmacy Renal Dose Adjustment 1 Ea XX 08/08/24 22:22 PRN PRN CONSULT Sodium Chloride 3 ml 07/10/24 10:40 07/14/24 15:03 Sodium Chloride Rt Erica 0.9% 3 Ml Nebu INH 08/09/24 10:39 3 ml PRN PRN Administration SOLN Plan Mr. Patiño is a 63-year-old with past medical history significant for multiple sclerosis, history of CVA with left-sided hemiplegia, hypertension, COPD, type 2 diabetes, hyperlipidemia, GERD was admitted to the ICU on 07/09 from [facility] due to shortness of breath and hypoxia. Patient was also found to have severe sepsis secondary to pneumonia and pyelonephritis as well as patient was found to have hypernatremia. Pt was admitted to ICU on 07/09 and downgraded to floors on 07/11 for continued management #Sepsis, severe likely secondary to Community-acquired pneumonia versus UTI #CAP likely secondary to ESBL Klebsiella and/or MDR Pseudomonas #UTI secondary to MDR Pseudomonas #Pyelonephritis #Lactic acidosis, LA 2.3 today -on admission pt was tachycardic, tachyapnic and had fever of 101.5 and leukocytosis (WBC 32.2) -lactic acid 2.3 -Chest CT is evident of bibasilar pneunomina, significant left base -supplemental oxygen as needed -blood culture no growth after 48 hrs -MRSA nares positive -Sputum culture grew klebsiella and pseudomonas -urine culture positive pseudomonas -Switched zosyn and doxycline due to cultures to levoquin on 07/12- -ID consulted, appreciate recommendations #Coccidioidomycosis ? Patient was found to be positive for cocci ? Started on fluconazole 200 mg once daily renally dosed ? Will follow-up with [facility] orders #Acute encephalopathy secondary to metabolic versus toxic metabolic causes #Hypernatremia -on admission Na was 164, Pt was started on D5W40 to slowly correct the sodium -Free water deficit is 3.4L -Will continue to hold D5W for now, will resume free water flushes 30cc/hr -monitor Na Q4H #Acute kidney injury #Nephrolithiasis, bilateral non-obstructing #Hydronephrosis, right likely secondary to above -likely prerenal in the setting of dehydration -increased free water flushes with PEG tube feedings -Nephrology Dr Gomez consulted, recommendations appreciated # Anemia, normocytic likely secondary to anemia of chronic disease -Hgb 10.0, Hct 33, MCV 87 -No signs of active bleeding, likely dilutional anemia -will continue to monitor daily cbc #Insulin dependent type 2 Diabetes -A1c 8.6 on 07/10 -Pt's home regimen is glargine 16 units daily -Pt is started on insulin sliding scale #Hx. of Pulmonary embolism -Pt's home eliquis is resumed Health Maintenance Disposition: telemetry DVT Prophylaxis: Pt is on eliquis for hx. of PE and SCD's Qshift GI Prophylaxis: Pantoprozol-40 IV Qday Diet: PEG tube feeds resume with rate is 35ml/h with 50 cc free water flushes every 2 hours Lines: Peripheral lines Code status: Full Assessment and plan discussed with my senior resident Dr. Ruff & attending physician Dr. Julio Rees (PGY-1)- Internal medicine resident Attending Provider Attestation/Addendum I have examined the patient, reviewed labs and imaging findings, discussed the case with the resident(s), and reviewed entered orders. I agree with the plan of care as outlined in this note, with these additional summaries/recommendations: Patient seen at bedside. No acute overnight events. Patient is nonverbal and no history can be obtained at this time. Patient continues to have severe acute hypoxic respiratory failure still requiring high flow nasal cannula secondary to bibasilar pneumonia which is most significant in the left base. Chest x-ray was obtained today which showed significant bilateral pneumonia with associated heart failure. Sputum culture grew Klebsiella pneumonia and Pseudomonas aeruginosa. Infectious disease following and patient titrated to Levaquin. Patient was febrile again overnight and WBC count has increased. If fever returns again then we will broaden antibiotics back to Zosyn although Cocci IgM now returned positive and patient started on fluconazole. Possible Cocci is etiology of patients recurrent fevers. Continue to wean O2 supplementation and no evidence of hypercapnia on previous ABG. Continue abx for urinary tract infection as well. Urine culture grew Pseudomonas. Patient was also noted to have severe hypernatremia on admission which has improved to 155. Continue free water flushes. Continue to trend sodium. BARBARA still present and actually worsened. Appreciate nephro recs. Renally dose medications and avoid nephrotoxic agents. Continue Eliquis for history of pulmonary embolism. Continue insulin sliding scale with basal insulin for history of diabetes mellitus type 2. A1c 8.6%. Overall prognosis remains guarded at this time. Repeat hematology and chemistry panel in AM. Dr. Julio MD
[2024-07-14 21:56] LABS: Anion Gap 12 (7-16); BUN/Creatinine Ratio 23 Ratio (12-20); Blood Urea Nitrogen 56 mg/dL (9-23); Carbon Dioxide 24.8 mMol/L (20.0-31.0); Chloride 118 mMol/L (98-107); Creatinine (Component) 2.4 mg/dL (0.6-1.3); Glucose 217 mg/dL (74-106); Osmolality,Calculated 329 (275-295); Potassium 3.4 mMol/L (3.4-5.1); Sodium 155 mMol/L (136-145); eGFR 30 See Note
[2024-07-15] VITALS (15 sets, daily range): BP systolic 112–133; BP diastolic 63–81; PULSE 96–135; RESP 20–39; TEMP 36.2–38.4; O2SAT 90–98
[2024-07-15] MEDS: INSULIN LISPRO (AdmeLOG) 1 UNIT/0.01 ML UNIT SC ×5 (00:11→23:46)
[2024-07-15] MEDS: ALBUTEROL RT 2.5 MG/0.5 ML NEBU INH ×6 (03:00→23:15)
[2024-07-15 05:59] LABS: Basophils % (Auto) 0 % (0-2.5); Eosinophils # (Auto) 0.4 Thou/mm3 (0.0-0.5); Eosinophils % (Auto) 2 % (0-10); Hematocrit 28.8 % (41.0-53.0); Immature Granulocytes % (Auto) 0 % (0-0); Immature Granulocytes Auto 0.06 Thou/mm3 (0.00-0.00); Lymphocytes # (Auto) 1.4 Thou/mm3 (1.0-4.8); Lymphocytes % (Auto) 7 % (10-50); Mean Corpuscular HGB Conc 29.9 g/dl (31.0-37.0); Mean Corpuscular Hemoglobin 25.7 pg (25.0-35.0); Mean Corpuscular Volume 86 fL (80-100); Monocytes # (Auto) 0.7 Thou/mm3 (0.0-0.8); Monocytes % (Auto) 3 % (0-12); Neutrophils # (Auto) 18.4 Thou/mm3 (1.8-7.7); Neutrophils % (Auto) 88 % (37-80); Nucleated Red Blood Cell % 0 /100 WBC (0); Platelet Count 397 Thou/mm3 (140-440); RDW Standard Deviation 53.5 fL (35.1-43.9); Red Blood Count 3.34 Miln/mm3 (4.50-5.90)
[2024-07-15 06:11] LABS: Hemoglobin 8.6 g/dL (13.5-16.0)
[2024-07-15 06:18] LABS: B-Type Natriuretic Peptide 33 pg/mL (0-100)
[2024-07-15 06:41] LABS: Alanine Aminotransferase 16 U/L (10-49); Albumin, Serum 3.3 gm/dL (3.4-4.8); Albumin/Globulin Ratio 0.9 (1.2-2.2); Alkaline Phosphatase 73 U/L (46-116); Anion Gap 12 (7-16); Aspartate Amino Transferase 15 U/L (0-34); BUN/Creatinine Ratio 24 Ratio (12-20); Bilirubin,Total 0.2 mg/dL (0.3-1.2); Blood Urea Nitrogen 55 mg/dL (9-23); Calcium 9.3 mg/dL (8.3-10.6); Calcium (Corrected) 9.9 mg/dL (8.5-10.1); Carbon Dioxide 25.5 mMol/L (20.0-31.0); Chloride 119 mMol/L (98-107); Creatinine (Component) 2.3 mg/dL (0.6-1.3); Globulin 3.6 gm/dL (2.3-3.5); Glucose 210 mg/dL (74-106); Magnesium 2.2 mg/dL (1.6-2.6); Osmolality,Calculated 330 (275-295); Phosphorous 3.5 mg/dL (2.4-5.1); Potassium 3.6 mMol/L (3.4-5.1); Sodium 156 mMol/L (136-145); Total Protein 6.9 gm/dL (5.7-8.2); eGFR 32 See Note
[2024-07-15] MEDS: APIXABAN 2.5 MG TABLET 5 MG PO ×2 (09:58→20:58)
[2024-07-15] MEDS: LEVOFLOXACIN/D5W 250MG IVPB 250 MG/50 ML BAG 50 MG IV (09:58)
[2024-07-15] MEDS: INSULIN GLARGINE (Lantus) 5 UNIT/0.05 ML (PER 5 UNITS) 16 UNIT SC (09:58)
[2024-07-15] MEDS: SODIUM CHLORIDE RT SOL 0.9% 3 ML NEBU INH ×2 (10:43→15:06)
--- NOTE | 2024-07-15 12:57 | PC.SS ---
Addendum entered by Aster Witt 07/15/24 15:31: SS contacted patient's daughter, Violeta [phone] for CODE status update to DNR. Patient's daughter Violeta stated she will now be point of contact/alternate decisionmaker. SS contacted patient's daughterVeronica [phone] to confirm change, Veronica verified. Code status updated with patient's daughter Violeta via telephone to DNR, effective 07/15/24. RN Rebeca and Dr. Ruff present. Original Note: SS informed by Dr. Ruff patient is requesting information regarding comfort care and hospice. SS contacted patient's daughter, Veronica via telephone [phone] to confirm discharge plan and explain hospice vs. comfort care. Patient's daughter stated she is aware of comfort care vs. hospice. Patient's daughter Veronica requested a new SNF and does not want patient to return to [facility] due to poor experience at [facility]. Veronica stated she would like for patient to discharge to different SNF and is okay with extending search out of [place]. 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 Patient's daughter Veronica acknowledged. SS recieved call from patient's daughter Violeta. Violeta is requesting a timeline of patient's life, months or days. SS informed her SS is unable to provide that information. SS informed Violeta she would be contacted by 1400, when Dr. Ruff, SS, and RN would be at bedside to update code status.
--- NOTE | 2024-07-15 13:14 | PD.RESPRO ---
Documentation for date of: 07/15/24 Subjective Subjective Interval history: Patient was seen and examined at the bedside. Overnight sodium went up therefore water flushes were not stopped. This morning, we saw the patient at the bedside and he was seen on high flow nasal cannula 60% saturating above 92%. Blood pressure were soft patient was tachycardic and tachypneic. RT is following the case. Labs were significant for improvement in white count and hemoglobin was stable. Chemistry panel showed sodium 155 slightly improved. Kidney functions remained unstable with BUN 55 and creatinine 2.3. Blood sugars were stable. A goals of care discussion was held with the patient's daughter, Violeta Georges, who was contacted at [phone] who is point of contact. She was informed that the patient?s condition is not improving and remains critical. The patient is facing multiple complex clinical issues, including acute hypoxic respiratory failure due to community-acquired pneumonia (CAP) and coccidioidomycosis, acute encephalopathy, pyelonephritis, worsening renal function, and hypernatremia, all of which have been challenging to manage. Given the patient?s overall poor prognosis and high oxygen requirements, it was determined that transferring the patient to [place] would not be feasible. Options for hospice care versus comfort care were discussed in detail. Ms. Georges expressed that she does not want the patient to endure further suffering and has chosen to proceed with comfort care at the custodial facility (SNF). We assured her that we would collaborate with the social work team to explore comfort care arrangements at the SNF. However, if options are limited, comfort care measures can be initiated upon her arrival at the bedside tomorrow morning at our hospital. The patient agreed with this plan. Additionally, a POLST form was completed, and the patient?s code status was updated to DNR/DNI, in accordance with the wishes of the patient?s daughter. This was documented in the presence of the manager social responsibility, Aster, and the registered nurse, Rebeca. Currently, we will continue with active management excluding doing drawing blood as patient's daughter does not want to do invasive measures on the patient. Exam Vital Signs Temp Pulse Resp BP Pulse Ox O2 Del Method O2 Flow Rate 97.9 F 110 H 35 H 133/73 H 90 L High Flow Nasal Cannula 13 07/15/24 08:00 07/15/24 10:45 07/15/24 10:45 07/15/24 08:00 07/15/24 10:45 07/15/24 08:00 07/15/24 10:45 FiO2 60 07/15/24 08:00 Narrative Exam GENERAL:Patient is not in acute distress, saturating via oxymask 15L NEURO: no focal neurological deficits HEENT: Atraumatic, Normocephalic. mucous membranes moist. Eyes open, anisocoria noted (left pupil dilated) HEART: Normal Heart Sounds LUNGS: mild crackles at the base of lungs ABDOMEN: soft, non-distended, non-tender, bowel sounds heard, no guarding or rebound tenderness, PEG tube in place SKIN: No Rash or ecchymoses EXTREMITIES: contracted upper and lower extremities Objective Labs 07/15/24 05:47 07/15/24 15:48 Labs: Laboratory Results - last 24 hr 07/14/24 07/14/24 07/15/24 13:16 21:32 05:41 WBC RBC Hgb Hct MCV MCH MCHC RDW Std Deviation Plt Count Neut % (Auto) Lymph % (Auto) [place] % (Auto) Eos % (Auto) Baso % (Auto) Neut # (Auto) Lymph # (Auto) [place] # (Auto) Eos # (Auto) Baso # (Auto) Immature Gran # (Auto) Absolute Nucleated RBC Immature Gran % Nucleated RBC % Sodium 153 H 155 H Potassium 3.4 Chloride 118 H Carbon Dioxide 24.8 Anion Gap 12 BUN 56 H Creatinine 2.4 H Estim Creat Clear Calc 23.0 L eGFR 30 L BUN/Creatinine Ratio 23 H Glucose 217 H D Calculated Osmolality 329 H Calcium 9.0 Corrected Calcium Phosphorus Magnesium Total Bilirubin AST ALT Alkaline Phosphatase B-Natriuretic Peptide 33 Total Protein Albumin Globulin Albumin/Globulin Ratio 07/15/24 05:47 WBC 21.0 H D RBC 3.34 L Hgb 8.6 L Hct 28.8 L MCV 86 MCH 25.7 MCHC 29.9 L RDW Std Deviation 53.5 H Plt Count 397 Neut % (Auto) 88 H Lymph % (Auto) 7 L [place] % (Auto) 3 Eos % (Auto) 2 Baso % (Auto) 0 Neut # (Auto) 18.4 H Lymph # (Auto) 1.4 [place] # (Auto) 0.7 Eos # (Auto) 0.4 Baso # (Auto) 0.0 Immature Gran # (Auto) 0.06 H Absolute Nucleated RBC 0.00 Immature Gran % 0 Nucleated RBC % 0 Sodium 156 H Potassium 3.6 Chloride 119 H Carbon Dioxide 25.5 Anion Gap 12 BUN 55 H Creatinine 2.3 H Estim Creat Clear Calc 24.0 L eGFR 32 L BUN/Creatinine Ratio 24 H Glucose 210 H Calculated Osmolality 330 H Calcium 9.3 Corrected Calcium 9.9 Phosphorus 3.5 Magnesium 2.2 Total Bilirubin 0.2 L AST 15 ALT 16 Alkaline Phosphatase 73 B-Natriuretic Peptide Total Protein 6.9 Albumin 3.3 L Globulin 3.6 H Albumin/Globulin Ratio 0.9 L ABG Interpretation ABG results: 07/09/24 14:42 ABG pH 7.47 H ABG pCO2 39 ABG pO2 54 L* ABG HCO3 29 H ABG O2 Saturation 89 L ABG Base Excess 5 H Quality Measures Quality Measures VTE prophylaxis Assessment & Plan Assessment Current Active Medications: Generic Name Dose Route Start Last Admin Trade Name Freq PRN Reason Stop Dose Admin Acetaminophen 650 mg 07/10/24 00:32 Acetaminophen Supp 650 Mg Supp [place] 08/09/24 00:31 Q4HR PRN PAIN SCALE 1-3 (mild Acetaminophen 650 mg 07/10/24 17:23 07/14/24 01:22 Acetaminophen 325 Mg Tablet PO 08/09/24 00:31 650 mg Q4HR PRN Administration PAIN RATED 1-3OR FEVER > 101 Al Hydrox/Mg Hydrox/Simethicone 30 ml 07/10/24 00:32 Mg Hyd/Al Hyd/Brittany (Maalox Reg) Susp 30 Ml Udc PO 08/09/24 00:31 Q4HR PRN Heartburn or Upset Stomach Albuterol 2.5 mg 07/10/24 11:00 07/15/24 10:41 Albuterol Rt 2.5 Mg/0.5 Ml Nebu INH 08/09/24 10:59 2.5 mg Q4HRRT TOOTIE Administration Apixaban 5 mg 07/10/24 09:00 07/15/24 09:58 Apixaban 2.5 Mg Tablet PO 07/31/24 08:59 5 mg BID TOOTIE Administration Dextrose 25 ml 07/09/24 22:26 Dextrose 50%-Water Inj 50 Ml Syringe IV 08/08/24 22:25 Q15MIN PRN BG 50-70 responsive npo pt Dextrose 50 ml 07/09/24 22:26 Dextrose 50%-Water Inj 50 Ml Syringe IV 08/08/24 22:25 Q15MIN PRN BG <50 OR BG <70 & pt unresponsive Fluconazole 200 mg 07/14/24 14:45 07/14/24 14:58 Fluconazole 100 Mg Tablet PO 07/21/24 14:44 200 mg 1400 TOOTIE Administration Glucagon 1 mg 07/09/24 22:26 Glucagon Inj 1 Mg Vial IM Q15MIN PRN BG <70, and no IV access Levofloxacin/Dextrose 250 mg in 50 mls @ 50 mls/hr 07/15/24 09:00 07/15/24 09:58 Levaquin Ivpb IV 07/22/24 08:59 50 mls/hr QDAY TOOTIE Administration Dextrose 1,000 mls @ 50 mls/hr 07/14/24 12:15 07/14/24 12:10 D5w IV 08/13/24 12:14 50 mls/hr .Q20H TOOTIE Administration Insulin Glargine 16 unit 07/10/24 09:00 07/15/24 09:58 Insulin Glargine (Lantus) 5 Unit/0.05 Ml (Per 5 Units) SC 08/09/24 08:59 16 unit QDAY OTOTIE Administration Insulin Human Lispro 0 unit 07/11/24 00:00 07/15/24 12:26 Insulin Lispro (Admelog) 1 Unit/0.01 Ml Unit SC 08/10/24 00:00 4 unit Q6HR TOOTIE Administration Protocol Magnesium Hydroxide 30 ml 07/10/24 00:32 Milk Of Magnesia Susp 30 Ml Udc PO 08/09/24 00:31 QDAY PRN CONSTIPATION Ondansetron HCl 4 mg 07/09/24 22:15 Ondansetron Inj 2 Mg/Ml Inj 2 Ml IV 08/08/24 22:14 Q6H PRN NAUSEA OR VOMITING Protocol Pharmacy Consult 1 each 07/09/24 22:23 Pharmacy Renal Dose Adjustment 1 Ea XX 08/08/24 22:22 PRN PRN CONSULT Sodium Chloride 3 ml 07/10/24 10:40 07/15/24 10:43 Sodium Chloride Rt Erica 0.9% 3 Ml Nebu INH 08/09/24 10:39 3 ml PRN PRN Administration SOLN Plan Mr. Patiño is a 63-year-old with past medical history significant for multiple sclerosis, history of CVA with left-sided hemiplegia, hypertension, COPD, type 2 diabetes, hyperlipidemia, GERD was admitted to the ICU on 07/09 from skilled nursing facility due to shortness of breath and hypoxia. Patient was also found to have severe sepsis secondary to pneumonia and pyelonephritis as well as patient was found to have hypernatremia. Pt was admitted to ICU on 07/09 and downgraded to floors on 07/11 for continued management. A goals of care discussion was held with the patient's daughter, Violeta Georges, who was contacted at [phone] who is point of contact. She was informed that the patient?s condition is not improving and remains critical. The patient is facing multiple complex clinical issues, including acute hypoxic respiratory failure due to community-acquired pneumonia (CAP) and coccidioidomycosis, acute encephalopathy, pyelonephritis, worsening renal function, and hypernatremia, all of which have been challenging to manage. Given the patient?s overall poor prognosis and high oxygen requirements, it was determined that transferring the patient to [place] would not be feasible. Options for hospice care versus comfort care were discussed in detail. Ms. Georges expressed that she does not want the patient to endure further suffering and has chosen to proceed with comfort care at the custodial facility (SNF). We assured her that we would collaborate with the social work team to explore comfort care arrangements at the SNF. However, if options are limited, comfort care measures can be initiated upon her arrival at the bedside tomorrow morning at our hospital. The patient agreed with this plan. Additionally, a POLST form was completed, and the patient?s code status was updated to DNR/DNI, in accordance with the wishes of the patient?s daughter. This was documented in the presence of the manager social responsibility, Aster, and the registered nurse, Rebeca. Currently, we will continue with active management excluding doing drawing blood as patient's daughter does not want to do invasive measures on the patient. #Sepsis, severe likely secondary to Community-acquired pneumonia versus UTI #CAP likely secondary to ESBL Klebsiella and/or MDR Pseudomonas #UTI secondary to MDR Pseudomonas #Pyelonephritis #Lactic acidosis, LA 2.3 today -on admission pt was tachycardic, tachyapnic and had fever of 101.5 and leukocytosis (WBC 32.2).lactic acid 2.3.Chest CT is evident of bibasilar pneunomina, significant left base -supplemental oxygen as needed -blood culture no growth after 48 hrs.MRSA nares positive. Sputum culture grew klebsiella and pseudomonas -urine culture positive pseudomonas -Continue levoquin 250 mg IV daily -ID consulted, appreciate recommendations #Coccidioidomycosis ? Patient was found to be positive for cocci ? Continue fluconazole 200 mg once daily renally dosed ? Will follow[facility] with [facility] orders #Acute encephalopathy secondary to metabolic versus toxic metabolic causes #Hypernatremia -on admission Na was 164, Pt was started on D5W40 to slowly correct the sodium -Free water deficit is 3.4L -Continue free water flushes 60cc/ q2hr #Acute kidney injury #Nephrolithiasis, bilateral non-obstructing #Hydronephrosis, right likely secondary to above -likely prerenal in the setting of dehydration -increased free water flushes with PEG tube feedings -Nephrology Dr Gomez consulted, recommendations appreciated # Anemia, normocytic likely secondary to anemia of chronic disease -Hgb 8.6 -No signs of active bleeding, likely dilutional anemia -will continue to monitor daily cbc #Insulin dependent type 2 Diabetes -A1c 8.6 on 07/10 -Pt's home regimen is glargine 16 units daily -Pt is started on insulin sliding scale #Hx. of Pulmonary embolism -Pt's home eliquis is resumed Health Maintenance Disposition: telemetry DVT Prophylaxis: Pt is on eliquis for hx. of PE and SCD's Qshift GI Prophylaxis: Pantoprozol-40 IV Qday Diet: PEG tube feeds resume with rate is 35ml/h with 60 cc free water flushes every 2 hours Lines: Peripheral lines Code status: Full Patient was seen and discussed with attending physician, Dr. Ronald Ruff MD, PGY 2 Attending Provider Attestation/Addendum I have examined the patient, reviewed labs and imaging findings, discussed the case with the resident(s), and reviewed entered orders. I agree with the plan of care as outlined in this note, with these additional summaries/recommendations: Discussion held with patient family today. Continue with antibiotics now but will mostly withdraw care and change patient's CODE STATUS to DNR/DNI. Will await the arrival of patient's family member tomorrow and consider transition to comfort care at that time. For now continue to titrate O2 as able and consider discharge to SNF facility for comfort care in the next 1 to 2 days. Aram Cardenas MD
[2024-07-15 13:27] LABS: Sodium 155 mMol/L (136-145)
[2024-07-15] MEDS: FLUCONAZOLE 100 MG TABLET 200 MG PO (13:49)
[2024-07-15 16:28] LABS: Sodium 156 mMol/L (136-145)
--- NOTE | 2024-07-15 16:43 | PD.RESPRO ---
Documentation for date of: 07/15/24 Subjective Subjective Interval history: Patient examined at bedside. No fevers spiked overnight. Tube feeds and D5W continue. D5W rate of 75cc/hr. Hypernatremia improving to 155 with the D5W. BARBARA improving with Cr of 2.3 today. Will continue rate of D5w at 75cc/hr. Potassium, magnesium, phosphate remain within normal limits. Continue monitoring CMP. Exam Vital Signs Temp Pulse Resp BP Pulse Ox O2 Del Method O2 Flow Rate 97.9 F 127 H 23 H 112/70 91 L Humidified Nasal Cannula 13 07/15/24 12:00 07/15/24 15:08 07/15/24 15:08 07/15/24 12:00 07/15/24 15:08 07/15/24 12:00 07/15/24 15:08 FiO2 60 07/15/24 08:00 Narrative Exam General:Adult male, nonverbal/bedbound unable to follow command, on high flow HEENT: NCAT, No JVD noted. Mucosa moist. Pupils are equal and reactive to light bilaterally Cardiovascular: Normal S1 and S2. Regular rate and rhythm. Respiratory: Lungs are clear to auscultation bilaterally. No wheezing or crackles heard. Abdomen: Soft, nontender, not distended, normal bowel sounds. Skin: Warm to touch, dry, no rashes noted Musculoskeletal: No gross injuries. No pitting edema, feet placed in waffle cushion Neuro: opens eyes to name, does not follow commands Psych: unable to assess Objective Labs 07/15/24 05:47 07/15/24 15:48 Labs: Laboratory Results - last 24 hr 07/14/24 07/15/24 07/15/24 21:32 05:41 05:47 WBC 21.0 H D RBC 3.34 L Hgb 8.6 L Hct 28.8 L MCV 86 MCH 25.7 MCHC 29.9 L RDW Std Deviation 53.5 H Plt Count 397 Neut % (Auto) 88 H Lymph % (Auto) 7 L [place] % (Auto) 3 Eos % (Auto) 2 Baso % (Auto) 0 Neut # (Auto) 18.4 H Lymph # (Auto) 1.4 [place] # (Auto) 0.7 Eos # (Auto) 0.4 Baso # (Auto) 0.0 Immature Gran # (Auto) 0.06 H Absolute Nucleated RBC 0.00 Immature Gran % 0 Nucleated RBC % 0 Sodium 155 H 156 H Potassium 3.4 3.6 Chloride 118 H 119 H Carbon Dioxide 24.8 25.5 Anion Gap 12 12 BUN 56 H 55 H Creatinine 2.4 H 2.3 H Estim Creat Clear Calc 23.0 L 24.0 L eGFR 30 L 32 L BUN/Creatinine Ratio 23 H 24 H Glucose 217 H D 210 H Calculated Osmolality 329 H 330 H Calcium 9.0 9.3 Corrected Calcium 9.9 Phosphorus 3.5 Magnesium 2.2 Total Bilirubin 0.2 L AST 15 ALT 16 Alkaline Phosphatase 73 B-Natriuretic Peptide 33 Total Protein 6.9 Albumin 3.3 L Globulin 3.6 H Albumin/Globulin Ratio 0.9 L 07/15/24 07/15/24 12:41 15:48 WBC RBC Hgb Hct MCV MCH MCHC RDW Std Deviation Plt Count Neut % (Auto) Lymph % (Auto) [place] % (Auto) Eos % (Auto) Baso % (Auto) Neut # (Auto) Lymph # (Auto) [place] # (Auto) Eos # (Auto) Baso # (Auto) Immature Gran # (Auto) Absolute Nucleated RBC Immature Gran % Nucleated RBC % Sodium 155 H 156 H Potassium Chloride Carbon Dioxide Anion Gap BUN Creatinine Estim Creat Clear Calc eGFR BUN/Creatinine Ratio Glucose Calculated Osmolality Calcium Corrected Calcium Phosphorus Magnesium Total Bilirubin AST ALT Alkaline Phosphatase B-Natriuretic Peptide Total Protein Albumin Globulin Albumin/Globulin Ratio ABG Interpretation ABG results: 07/09/24 14:42 ABG pH 7.47 H ABG pCO2 39 ABG pO2 54 L* ABG HCO3 29 H ABG O2 Saturation 89 L ABG Base Excess 5 H Quality Measures Quality Measures VTE prophylaxis Assessment & Plan Assessment Current Active Medications: Generic Name Dose Route Start Last Admin Trade Name Freq PRN Reason Stop Dose Admin Acetaminophen 650 mg 07/10/24 00:32 Acetaminophen Supp 650 Mg Supp [place] 08/09/24 00:31 Q4HR PRN PAIN SCALE 1-3 (mild Acetaminophen 650 mg 07/10/24 17:23 07/14/24 01:22 Acetaminophen 325 Mg Tablet PO 08/09/24 00:31 650 mg Q4HR PRN Administration PAIN RATED 1-3OR FEVER > 101 Al Hydrox/Mg Hydrox/Simethicone 30 ml 07/10/24 00:32 Mg Hyd/Al Hyd/Brittany (Maalox Reg) Susp 30 Ml Udc PO 08/09/24 00:31 Q4HR PRN Heartburn or Upset Stomach Albuterol 2.5 mg 07/10/24 11:00 07/15/24 15:06 Albuterol Rt 2.5 Mg/0.5 Ml Nebu INH 08/09/24 10:59 2.5 mg Q4HRRT TOOTIE Administration Apixaban 5 mg 07/10/24 09:00 07/15/24 09:58 Apixaban 2.5 Mg Tablet PO 07/31/24 08:59 5 mg BID TOOTIE Administration Dextrose 25 ml 07/09/24 22:26 Dextrose 50%-Water Inj 50 Ml Syringe IV 08/08/24 22:25 Q15MIN PRN BG 50-70 responsive npo pt Dextrose 50 ml 07/09/24 22:26 Dextrose 50%-Water Inj 50 Ml Syringe IV 08/08/24 22:25 Q15MIN PRN BG <50 OR BG <70 & pt unresponsive Fluconazole 200 mg 07/14/24 14:45 07/15/24 13:49 Fluconazole 100 Mg Tablet PO 07/21/24 14:44 200 mg 1400 TOOTIE Administration Glucagon 1 mg 07/09/24 22:26 Glucagon Inj 1 Mg Vial IM Q15MIN PRN BG <70, and no IV access Levofloxacin/Dextrose 250 mg in 50 mls @ 50 mls/hr 07/15/24 09:00 07/15/24 09:58 Levaquin Ivpb IV 07/22/24 08:59 50 mls/hr QDAY TOOTIE Administration Insulin Glargine 16 unit 07/10/24 09:00 07/15/24 09:58 Insulin Glargine (Lantus) 5 Unit/0.05 Ml (Per 5 Units) SC 08/09/24 08:59 16 unit QDAY TOOTIE Administration Insulin Human Lispro 0 unit 07/11/24 00:00 07/15/24 12:26 Insulin Lispro (Admelog) 1 Unit/0.01 Ml Unit SC 08/10/24 00:00 4 unit Q6HR TOOTIE Administration Protocol Magnesium Hydroxide 30 ml 07/10/24 00:32 Milk Of Magnesia Susp 30 Ml Udc PO 08/09/24 00:31 QDAY PRN CONSTIPATION Ondansetron HCl 4 mg 07/09/24 22:15 Ondansetron Inj 2 Mg/Ml Inj 2 Ml IV 08/08/24 22:14 Q6H PRN NAUSEA OR VOMITING Protocol Pharmacy Consult 1 each 07/09/24 22:23 Pharmacy Renal Dose Adjustment 1 Ea XX 08/08/24 22:22 PRN PRN CONSULT Sodium Chloride 3 ml 07/10/24 10:40 07/15/24 15:06 Sodium Chloride Rt Erica 0.9% 3 Ml Nebu INH 08/09/24 10:39 3 ml PRN PRN Administration SOLN Plan Jamie Patiño is 63 yr male with PMH of MS, CVA with L/S hemiplegia, HTN, COPD, IDDM II, HLD, GERD, lower extremity contractures, who is also and bedridden, and non-verbal at baseline, BIBA from [facility] on 07/09/24 due to shortness of breath and hypoxia for past few days. Most history was obtained from chart review. At bedside he remains nonverbal. Nephrology was consutled for patient's BARBARA and hyperosmolar hypernatremia. #Hyperosmolar hypernatremia #BARBARA Initially presented with sodium of 165, BUN 86, Cr 2.2. Patient was started on D5W 45cc/hr and free water flushes 20cc/hr. Most likely due to poor oral intake and dehydration along with setting of patient's sepsis leading to hypoperfusion. Currently BUN/Cr 31 indicating pre renal etiology. -Goal sodium over next 24 hrs ~150. -Sodium checks every 4 hours -Free water deficit calculated to be apprx 1 L for goal above -continue D5W maintainence at 75cc/hr -avoid nephrotoxic agents -daily CMP #Bilateral nonobstructing renal calculi #Right hydronephrosis #Acute metabolic encephalopathy 2/2 hypernatremia and sepsis #Severe sepsis 2/2 Pyelonephritis #Lactic acidosis #Hx of PE on Eliquis #Acute hypoxic respiratory failure on high flow NC #Pylonephritis #Anemia chronic disease #Leukocytosis 2/2 Pyelonephritis #Acute anemia/thrombocytosis in setting of severe dehydration #IDDM II #PEG tube feeding -Continue care as per primary care team. The patient's management plan was discussed with my attending physician Dr. Gomez. Louann Rucker, PGY-1 Attending Provider Attestation/Addendum Pt ssen and examined. Labs are reviewed. Agree with assessment and plan and findings by Resident Please call at [phone] if have any question Glen Gomez MD
[2024-07-16] VITALS (14 sets, daily range): BP systolic 116–156; BP diastolic 59–72; PULSE 100–123; RESP 16–37; TEMP 36.3–36.8; O2SAT 9–100
[2024-07-16] MEDS: ALBUTEROL RT 2.5 MG/0.5 ML NEBU INH ×4 (03:25→14:25)
[2024-07-16] MEDS: INSULIN LISPRO (AdmeLOG) 1 UNIT/0.01 ML UNIT SC ×3 (05:44→18:07)
[2024-07-16] MEDS: SODIUM CHLORIDE RT SOL 0.9% 3 ML NEBU INH ×2 (07:08→10:55)
--- NOTE | 2024-07-16 09:41 | PC.CC ---
Patient Access Specialist (ILIR) Moyn contacted patient's daughter, Violeta via telephone call. ILIR introduced self, role and reason for phone call. ILIR dicussed conversation with Dr. Ruff on 07/15/2024. Violeta reported that comfort care is not supposed to be started until she arrives. ILIR explained that if patients do not within 24 hours, then she can be contacted for discharge planning. Violeta reported that she is receptive to the idea that patient can transition to a SNF with hospice care, if he survives the 24 hours in the hospital. Violeta requested that the only facility not to be used be [facility]. Violeta reported that when she arrives, she will sign the POLST form as well. ILIR will update Dr. Ruff. ILIR will initiate SNF search.
[2024-07-16] MEDS: LEVOFLOXACIN/D5W 250MG IVPB 250 MG/50 ML BAG 50 MG IV (09:52)
[2024-07-16] MEDS: INSULIN GLARGINE (Lantus) 5 UNIT/0.05 ML (PER 5 UNITS) 16 UNIT SC (09:53)
[2024-07-16] MEDS: APIXABAN 2.5 MG TABLET 5 MG PO (09:53)
--- NOTE | 2024-07-16 11:15 | PD.RESPRO ---
Documentation for date of: 07/16/24 Subjective Subjective Interval history: no acute over night events reported. Pt's daughter from [place] requested no more blood draws. Pt's daughter is coming into town today in the evening and would like to start comfort care as per discussion with hospitalist team yesterday. Bp is stable, pt is tachycardic and tachyapnic and currently saturating on 13L of O2 via oxymask. when pt's daughter arrives, will start comfort care measures. Exam Vital Signs Temp Pulse Resp BP Pulse Ox O2 Del Method O2 Flow Rate 97.9 F 119 H 25 H 124/72 94 L Nasal Cannula 13 07/16/24 08:00 07/16/24 10:55 07/16/24 10:55 07/16/24 08:00 07/16/24 10:55 07/16/24 08:00 07/16/24 10:55 FiO2 60 07/16/24 08:00 Narrative Exam GENERAL: Not in acute distress, saturating on 13L via oxymask NEURO: unable to asses as pt does not respond to questions or answers and does not follow commands HEENT: Atraumatic, Normocephalic. mucous membranes moist. Eyes open HEART: Normal Heart Sounds LUNGS: mild crackles at the base of lungs ABDOMEN: soft, non-distended, non-tender, bowel sounds heard, no guarding or rebound tenderness, PEG tube in place SKIN: No Rash or ecchymoses EXTREMITIES: contracted upper and lower extremities Objective Labs 07/15/24 05:47 07/15/24 15:48 Labs: Laboratory Results - last 24 hr 07/15/24 07/15/24 12:41 15:48 Sodium 155 H 156 H ABG Interpretation ABG results: 07/09/24 14:42 ABG pH 7.47 H ABG pCO2 39 ABG pO2 54 L* ABG HCO3 29 H ABG O2 Saturation 89 L ABG Base Excess 5 H Quality Measures Quality Measures VTE prophylaxis Assessment & Plan Assessment Current Active Medications: Generic Name Dose Route Start Last Admin Trade Name Freq PRN Reason Stop Dose Admin Acetaminophen 650 mg 07/10/24 00:32 Acetaminophen Supp 650 Mg Supp MD 08/09/24 00:31 Q4HR PRN PAIN SCALE 1-3 (mild Acetaminophen 650 mg 07/10/24 17:23 07/14/24 01:22 Acetaminophen 325 Mg Tablet PO 04/09/25 00:31 650 mg Q4HR PRN Administration PAIN RATED 1-3OR FEVER > 101 Al Hydrox/Mg Hydrox/Simethicone 30 ml 07/10/24 00:32 Mg Hyd/Al Hyd/Brittany (Maalox Reg) Susp 30 Ml Udc PO 08/09/24 00:31 Q4HR PRN Heartburn or Upset Stomach Albuterol 2.5 mg 07/10/24 11:00 07/16/24 10:54 Albuterol Rt 2.5 Mg/0.5 Ml Nebu INH 08/09/24 10:59 2.5 mg Q4HRRT TOOTIE Administration Apixaban 5 mg 07/10/24 09:00 07/16/24 09:53 Apixaban 2.5 Mg Tablet PO 07/31/24 08:59 5 mg BID TOOTIE Administration Dextrose 25 ml 07/09/24 22:26 Dextrose 50%-Water Inj 50 Ml Syringe IV 08/08/24 22:25 Q15MIN PRN BG 50-70 responsive npo pt Dextrose 50 ml 07/09/24 22:26 Dextrose 50%-Water Inj 50 Ml Syringe IV 08/08/24 22:25 Q15MIN PRN BG <50 OR BG <70 & pt unresponsive Fluconazole 200 mg 07/14/24 14:45 07/15/24 13:49 Fluconazole 100 Mg Tablet PO 07/21/24 14:44 200 mg 1400 TOOTIE Administration Glucagon 1 mg 07/09/24 22:26 Glucagon Inj 1 Mg Vial IM Q15MIN PRN BG <70, and no IV access Levofloxacin/Dextrose 250 mg in 50 mls @ 50 mls/hr 07/15/24 09:00 07/16/24 09:52 Levaquin Ivpb IV 07/22/24 08:59 50 mls/hr QDAY TOOTIE Administration Insulin Glargine 16 unit 07/10/24 09:00 07/16/24 09:53 Insulin Glargine (Lantus) 5 Unit/0.05 Ml (Per 5 Units) SC 08/09/24 08:59 16 unit QDAY TOOTIE Administration Insulin Human Lispro 0 unit 07/11/24 00:00 07/16/24 05:44 Insulin Lispro (Admelog) 1 Unit/0.01 Ml Unit SC 08/10/24 00:00 4 unit Q6HR TOOTIE Administration Protocol Magnesium Hydroxide 30 ml 07/10/24 00:32 Milk Of Magnesia Susp 30 Ml Udc PO 08/09/24 00:31 QDAY PRN CONSTIPATION Ondansetron HCl 4 mg 07/09/24 22:15 Ondansetron Inj 2 Mg/Ml Inj 2 Ml IV 08/08/24 22:14 Q6H PRN NAUSEA OR VOMITING Protocol Pharmacy Consult 1 each 07/09/24 22:23 Pharmacy Renal Dose Adjustment 1 Ea XX 08/08/24 22:22 PRN PRN CONSULT Sodium Chloride 3 ml 07/10/24 10:40 07/16/24 10:55 Sodium Chloride Rt Erica 0.9% 3 Ml Nebu INH 08/09/24 10:39 3 ml PRN PRN Administration SOLN Plan Mr. Patiño is a 63-year-old with past medical history significant for multiple sclerosis, history of CVA with left-sided hemiplegia, hypertension, COPD, type 2 diabetes, hyperlipidemia, GERD was admitted to the ICU on 07/09 from [facility] facility due to shortness of breath and hypoxia. Patient was also found to have severe sepsis secondary to pneumonia and pyelonephritis as well as patient was found to have hypernatremia. Pt was admitted to ICU on 07/09 and downgraded to floors on 07/11 for continued management. On 07/15/24: A goals of care discussion was held with the patient's daughter, Violeta Georges, who was contacted at [phone] who is point of contact. She was informed that the patient?s condition is not improving and remains critical. The patient is facing multiple complex clinical issues, including acute hypoxic respiratory failure due to community-acquired pneumonia (CAP) and coccidioidomycosis, acute encephalopathy, pyelonephritis, worsening renal function, and hypernatremia, all of which have been challenging to manage. Given the patient?s overall poor prognosis and high oxygen requirements, it was determined that transferring the patient to [place] would not be feasible. Options for hospice care versus comfort care were discussed in detail. Ms. Georges expressed that she does not want the patient to endure further suffering and has chosen to proceed with comfort care at the halfway facility (SNF). We assured her that we would collaborate with the social work team to explore comfort care arrangements at the SNF. However, if options are limited, comfort care measures can be initiated upon her arrival at the bedside tomorrow morning at our hospital. The patient agreed with this plan. Additionally, a POLST form was completed, and the patient?s code status was updated to DNR/DNI, in accordance with the wishes of the patient?s daughter. This was documented in the presence of the social services coordinator, Aster, and the registered nurse, Rebeca. Currently, we will continue with active management excluding doing drawing blood as patient's daughter does not want to do invasive measures on the patient. #Sepsis, severe likely secondary to Community-acquired pneumonia versus UTI #CAP likely secondary to ESBL Klebsiella and/or MDR Pseudomonas #UTI secondary to MDR Pseudomonas #Pyelonephritis #Lactic acidosis, LA 2.3 today -on admission pt was tachycardic, tachyapnic and had fever of 101.5 and leukocytosis (WBC 32.2).lactic acid 2.3.Chest CT is evident of bibasilar pneunomina, significant left base -supplemental oxygen as needed -blood culture no growth after 48 hrs.MRSA nares positive. 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 Continue fluconazole 200 mg once daily renally dosed ? Will follow-up with [facility] orders #Acute encephalopathy secondary to metabolic versus toxic metabolic causes #Hypernatremia -on admission Na was 164, Pt was started on D5W40 to slowly correct the sodium -Free water deficit is 3.4L -Continue free water flushes 60cc/ q2hr #Acute kidney injury #Nephrolithiasis, bilateral non-obstructing #Hydronephrosis, right likely secondary to above -likely prerenal in the setting of dehydration -increased free water flushes with PEG tube feedings -Nephrology Dr Gomez consulted, recommendations appreciated # Anemia, normocytic likely secondary to anemia of chronic disease -Hgb 8.6 -No signs of active bleeding, likely dilutional anemia -will continue to monitor daily cbc #Insulin dependent type 2 Diabetes -A1c 8.6 on 07/10 -Pt's home regimen is glargine 16 units daily -Pt is started on insulin sliding scale #Hx. of Pulmonary embolism -Pt's home eliquis is resumed Health Maintenance Disposition: telemetry DVT Prophylaxis: Pt is on eliquis for hx. of PE and SCD's Qshift GI Prophylaxis: Pantoprozol-40 IV Qday Diet: PEG tube feeds resume with rate is 35ml/h with 60 cc free water flushes every 2 hours Lines: Peripheral lines Code status: Full Assessment and plan discussed with my attending physician Dr. Ronald Rees (PGY-1)- Internal medicine resident Attending Provider Attestation/Addendum I have examined the patient, reviewed labs and imaging findings, discussed the case with the resident(s), and reviewed entered orders. I agree with the plan of care as outlined in this note, with these additional summaries/recommendations: Patient appears comfortable at this time. After discussion with patient's daughter yesterday regarding poor prognosis, she has agreed to withdraw aggressive measures and instead transition to comfort based therapy, however requested that we await her arrival prior to transitioning to full comfort care. She is set to arrive tonight after 5 PM and will transition patient to morphine drip at that time. He is on greater than 10 L of oxygen by oxime mask and may not be able to be transitioned to an acute care facility on hospice due to high oxygen requirements. Will initiate comfort care measures here in the hospital and reassess with case management in a.m. Aram Cardenas MD
[2024-07-16] MEDS: FLUCONAZOLE 100 MG TABLET 200 MG PO (14:40)
--- NOTE | 2024-07-16 23:00 | PC.RT ---
comfort care oxygen removed per family, for comfort care measures. awaiting xfer to 3rd floor.
[2024-07-16] MEDS: HYDROmorphone INJ 2 MG/ML VIAL IVP (23:47)
[2024-07-17] VITALS: BP 122/67; PULSE 114; RESP 24; TEMP 37.7; O2SAT 86
[2024-07-17] MEDS: SCOPOLAMINE 1 MG TDSY TOP (00:03)
[2024-07-17] MEDS: HYDROmorphone INJ 2 MG/ML VIAL IVP ×3 (02:22→10:32)
[2024-07-17 07:12] LABS: Osmolality, Urine* 568 mOsm/kg (50-1200)
[2024-07-17 08:00] VITALS: BP 124/68; PULSE 115; RESP 14; TEMP 37.5; O2SAT 74
[2024-07-17] MEDS: Morphine IV Drip 100mg/100ml 100 ML IV (11:23)
--- NOTE | 2024-07-17 17:23 | ESPR_ITS ---
Documentation for date of: 07/17/24 Subjective Subjective Interval history: No overnight events reported. Patient is currently on comfort care measures. Transitioned from Dilaudid pushes to morphine drip due to pt appearing uncomfortable. Pt was tachycardic and tachypnic. Patient's daughter is at bedside. Exam Vital Signs Temp Pulse Resp BP Pulse Ox O2 Del Method O2 Flow Rate 99.5 F 115 H 14 124/68 74 L Room Air 13 07/17/24 08:00 07/17/24 08:00 07/17/24 08:00 07/17/24 08:00 07/17/24 08:00 07/17/24 08:00 07/16/24 20:00 FiO2 60 07/16/24 15:59 Narrative Exam GENERAL: chronically ill appearing male NEURO: unable to asses as pt does not respond to questions or answers and does not follow commands HEENT: Atraumatic, Normocephalic. mucous membranes moist. Eyes open HEART: Normal Heart Sounds LUNGS: mild crackles at the base of lungs ABDOMEN: soft, non-distended, non-tender, bowel sounds heard, no guarding or rebound tenderness, PEG tube in place SKIN: No Rash or ecchymoses EXTREMITIES: contracted upper and lower extremities Objective Labs 07/15/24 05:47 07/15/24 15:48 Labs: Laboratory Results - last 24 hr 07/10/24 20:30 Urine Osmolality 568 ABG Interpretation ABG results: 07/09/24 14:42 ABG pH 7.47 H ABG pCO2 39 ABG pO2 54 L* ABG HCO3 29 H ABG O2 Saturation 89 L ABG Base Excess 5 H Quality Measures Quality Measures VTE prophylaxis Assessment & Plan Assessment Current Active Medications: Generic Name Dose Route Start Last Admin Trade Name Freq PRN Reason Stop Dose Admin Artificial Tears 1 drop 07/16/24 20:28 Artificial Tears 225 Drop/15 Ml Btl BOTH EYES 08/15/24 20:27 Q4HR PRN Dry eyes Diphenhydramine HCl 25 mg 07/16/24 20:28 Diphenhydramine Inj 50 Mg/Ml Vial IVP 08/15/24 20:27 Q6HR PRN ITCHING Glycopyrrolate 0.2 mg 07/16/24 20:28 Glycopyrrolate Inj 0.2 Mg/Ml Vial IV 08/15/24 20:27 QID PRN As needed for secretions Morphine Sulfate 100 mls @ 1 mls/hr 07/17/24 10:37 07/17/24 11:23 Morphine Sulfate Iv Drip 100mg/100ml IV 07/22/24 10:36 1 mg/hr Q50H PRN 1 mls/hr PAIN (COMFORT CARE) Administration Protocol 1 MG/HR Lorazepam 1 mg 07/16/24 20:28 Lorazepam 2 Mg/Ml Vial IVP 07/21/24 20:27 Q4H PRN ANXIETY Ondansetron HCl 4 mg 07/09/24 22:15 Ondansetron Inj 2 Mg/Ml Inj 2 Ml IV 08/08/24 22:14 Q6H PRN NAUSEA OR VOMITING Protocol Pharmacy Consult 1 each 07/09/24 22:23 Pharmacy Renal Dose Adjustment 1 Ea XX 08/08/24 22:22 PRN PRN CONSULT Scopolamine 1 mg 07/16/24 20:30 07/17/24 00:03 Scopolamine 1 Mg Tdsy TOP 08/15/24 20:29 1 mg Q3D TOOTIE Administration Plan Mr. Patiño is a 63-year-old with past medical history significant for multiple sclerosis, history of CVA with left-sided hemiplegia, hypertension, COPD, type 2 diabetes, hyperlipidemia, GERD was admitted to the ICU on 07/09 from [facility]ial facility due to shortness of breath and hypoxia. Patient was also found to have severe sepsis secondary to pneumonia and pyelonephritis as well as patient was found to have hypernatremia. Pt was admitted to ICU on 07/09 and downgraded to floors on 07/11 for continued management. On 07/15/24: A goals of care discussion was held with the patient's daughter, Violeta Georges, who was contacted at [phone] who is point of contact. She was informed that the patient?s condition is not improving and remains critical. The patient is facing multiple complex clinical issues, including acute hypoxic respiratory failure due to community-acquired pneumonia (CAP) and coccidioidomycosis, acute encephalopathy, pyelonephritis, worsening renal function, and hypernatremia, all of which have been challenging to manage. Given the patient?s overall poor prognosis and high oxygen requirements, it was determined that transferring the patient to [place] would not be feasible. Options for hospice care versus comfort care were discussed in detail. Ms. Georges expressed that she does not want the patient to endure further suffering and has chosen to proceed with comfort care at the nursing home facility (SNF). We assured her that we would collaborate with the social work team to explore comfort care arrangements at the SNF. However, if options are limited, comfort care measures can be initiated upon her arrival at the bedside tomorrow morning at our hospital. The patient agreed with this plan. Additionally, a POLST form was completed, and the patient?s code status was updated to DNR/DNI, in accordance with the wishes of the patient?s daughter. This was documented in the presence of the social science instructor, Aster, and the registered nurse, Rebeca. Currently, we will continue with active management excluding doing drawing blood as patient's daughter does not want to do invasive measures on the patient. #Sepsis, severe likely secondary to Community-acquired pneumonia versus UTI #CAP likely secondary to ESBL Klebsiella and/or MDR Pseudomonas #UTI secondary to MDR Pseudomonas #Pyelonephritis #Lactic acidosis, LA 2.3 today -on admission pt was tachycardic, tachyapnic and had fever of 101.5 and leukocytosis (WBC 32.2).lactic acid 2.3.Chest CT is evident of bibasilar pneunomina, significant left base -supplemental oxygen as needed -blood culture no growth after 48 hrs.MRSA nares positive. 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 Continue fluconazole 200 mg once daily renally dosed ? Will follow[facility]up with [facility] orders #Acute encephalopathy secondary to metabolic versus toxic metabolic causes #Hypernatremia -on admission Na was 164, Pt was started on D5W40 to slowly correct the sodium -Free water deficit is 3.4L -Continue free water flushes 60cc/ q2hr #Acute kidney injury #Nephrolithiasis, bilateral non-obstructing #Hydronephrosis, right likely secondary to above -likely prerenal in the setting of dehydration -increased free water flushes with PEG tube feedings -Nephrology Dr Gomez consulted, recommendations appreciated # Anemia, normocytic likely secondary to anemia of chronic disease -Hgb 8.6 -No signs of active bleeding, likely dilutional anemia -will continue to monitor daily cbc #Insulin dependent type 2 Diabetes -A1c 8.6 on 07/10 -Pt's home regimen is glargine 16 units daily -Pt is started on insulin sliding scale #Hx. of Pulmonary embolism -Pt's home eliquis is resumed Health Maintenance Disposition: telemetry DVT Prophylaxis: Pt is on eliquis for hx. of PE and SCD's Qshift GI Prophylaxis: Pantoprozol-40 IV Qday Diet: PEG tube feeds resume with rate is 35ml/h with 60 cc free water flushes every 2 hours Lines: Peripheral lines Code status: Full Assessment and plan discussed with my attending physician Dr. Ronald Rees (PGY-1)- Internal medicine resident Attending Provider Attestation/Addendum I have discussed and was present for the essential components of the history, physical examination, diagnosis, and treatment plan with the resident. I agree with the patient's care as documented by the resident and amended herein by me. Nura Yang DO. Patient seen and evaluated this AM. No acute events overnight, patient remains on comfort measures, morphine drip started. Although this document has been carefully reviewed, there may still be some phonetic and other typographical errors. These errors are purely grammatical due to imperfections in the software program and should not be construed in any way to compromise the substance of the patient's medical care during this visit.
--- NOTE | 2024-07-17 19:43 | PC.NURSE ---
Dr. Turk in room to assess patient and talk to family. Dr. Turk noticed the patient was tachypnic, so he requested to increase morphine drip to 2ml/hr.
[2024-07-17 20:00] VITALS: BP 124/68; PULSE 115; RESP 14; TEMP 37.5; O2SAT 74
[2024-07-18] VITALS: BP 99/51; PULSE 147; RESP 14; TEMP 38.2; O2SAT 53
[2024-07-18] MEDS: LORazepam 2 MG/ML VIAL 1 MG IVP (00:50)
--- NOTE | 2024-07-18 00:59 | PC.NURSE ---
Dr. Torres and Dr. Arzola made aware that patient is tachycardic at 144. Dr. Arzola said to give ativan. Ativan given at 0050
--- NOTE | 2024-07-18 02:33 | PD.DPN ---
Documentation for date of: 07/18/24 Pronouncement Note Date and Time of Date of : 07/18/24 Time of : 02:18 PCOD Preliminary cause of : Cardiopulmonary arrest Contributing Factors (1) Sepsis: (2) Acute kidney injury: (3) Encephalopathy: Summary Additional details: At 0218 on 07/18/2024, there was report that patient at passed after being on comfort measures. I personally went to examine patient in which daughter was present at bedside and wanted to be there during the pronouncement. Pt was lying on bed, pupils fixed and dilated and they were not reactive to light, no breath sounds, no heart sounds, chest not moving, no peripheral pulses on patient. Gag reflex absent as well. It was shortly after that patient had been pronounced . Because of the likely related to cardiopulmonary arrest with contributing factors of sepsis, BARBARA and encephalopathy. Patient seen and care discussed with my attending physician, Dr. Leodan Torres, PGY-1 Additional Data Confirmation of : no pulse, no respirations, no heart sounds and pupils fixed and dilated Family: at bedside Attending/PCP notified?: No Attending physician: Danial Yang, DO Was code activated?: No Autopsy requested?: No
--- NOTE | 2024-07-18 03:06 | PC.NURSE ---
Patient at 0218. Dr. Torres pronounced patient. Donor network and [facility] home was called.
--- NOTE | 2024-07-18 07:27 | PD.DDS ---
Documentation for date of: 07/18/24 Summary Date and Time Date of admission: 07/09/24 21:55 Date of : 07/18/24 Time of : 02:18 Summary Hospital Course: summary: Mr. Patiño is a 63-year-old with past medical history significant for multiple sclerosis, history of CVA with left-sided hemiplegia, hypertension, COPD, type 2 diabetes, hyperlipidemia, GERD was In ICU on 07/09 from nursing facility due to shortness of breath and hypoxia. He was found to have severe sepsis likely secondary to pneumonia and pyelonephritis. Patient was additionally found to have acute encephalopathy likely due to critical hypernatremia. Head CT was negative. Patient was tachycardic, tachypneic and febrile with leukocytosis and lactic acidosis. Chest CT was significant for bibasilar pneumonia significant on left base. Blood cultures showed no growth. Sputum culture grew Klebsiella and Pseudomonas as well as urine cultures grew pseudomonas. ID specialist was consulted and he recommended that patient needs to be continued on Levaquin sensitive to Pseudomonas. Patient was also found to have coccidioidomycosis and was treated with fluconazole. Patient's mentation didnt improved with with antibiotics and even with treatment for hypernatremia. Water flushes and D5W was continued however he was getting fluid overloaded. Patient never came to his baseline mentation. His kidney functions continued to deteriorate due to nephrolithiasis and hydronephrosis. He was continued on Eliquis for PE. Due to patient's poor prognosis on 07/15/2024, goals of care discussion was performed with patient's daughter, Violeta Georges, who was contacted at [phone] who was his point of contact. She was informed that the patient?s condition is not improving and remains critical. The patient is facing multiple complex clinical issues, including acute hypoxic respiratory failure due to community-acquired pneumonia (CAP) and coccidioidomycosis, acute encephalopathy, pyelonephritis, worsening renal function, and hypernatremia, all of which have been challenging to manage. Given the patient?s overall poor prognosis and high oxygen requirements, it was determined that transferring the patient to [place] would not be feasible. Options for hospice care versus comfort care were discussed in detail. Ms. Georges expressed that she does not want the patient to endure further suffering and has chosen to proceed with comfort care at the correction facility (SNF). We assured her that we would collaborate with the social work team to explore comfort care arrangements at the SNF. However, if options are limited, comfort care measures can be initiated upon her arrival at the bedside tomorrow morning at our hospital. The patient agreed with this plan. Additionally, a POLST form was completed, and the patient?s code status was updated to DNR/DNI, in accordance with the wishes of the patient?s daughter. This was documented in the presence of the socially responsible investment adviser, Aster, and the registered nurse, Rebeca. Comfort care measures were started as soon as patient's daughter arrived. pronouncement: At 0218 on 07/18/2024, there was report that patient at passed after being on comfort measures. Night Resident on duty went and examine patient in which daughter was present at bedside and wanted to be there during the pronouncement. Pt was lying on bed, pupils fixed and dilated and they were not reactive to light, no breath sounds, no heart sounds, chest not moving, no peripheral pulses on patient. Gag reflex absent as well. It was shortly after that patient had been pronounced . Because of the likely related to cardiopulmonary arrest with contributing factors of sepsis, BARBARA and encephalopathy. #Problem list: #Comfort care #Sepsis, severe likely secondary to Community-acquired pneumonia versus UTI #CAP likely secondary to ESBL Klebsiella and/or MDR Pseudomonas #UTI secondary to MDR Pseudomonas #Pyelonephritis #Lactic acidosis #Coccidioidomycosis #Acute encephalopathy secondary to metabolic versus toxic metabolic causes #Hypernatremia #Acute kidney injury #Nephrolithiasis, bilateral non-obstructing #Hydronephrosis, right likely secondary to above # Anemia, normocytic likely secondary to anemia of chronic disease #Insulin dependent type 2 Diabetes #Hx. of Pulmonary embolism Patient was discussed with attending physician, Dr. Celia Ruff MD, PGY 2 Additional Data Confirmation of as documented by pronouncing clinician: no pulse, no respirations, no heart sounds and pupils fixed and dilated Family: at bedside Attending/PCP notified?: No Attending physician: Danial Yang, DO Was code activated?: No Autopsy requested?: No lens examiner notified?: No Organ bank notified?: No Visit Providers Provider Primary care physician: Cristian Ferguson MD Diagnosis PCOD Cause of : Cardiopulmonary arrest Contributing Factors (1) Sepsis: (2) Acute kidney injury: (3) Encephalopathy: Discharge Plan Plan Patient Disposition: Prescriptions/Referrals Referrals: Cristian Ferguson MD [Primary Care Provider] - Patient/Caregiver Discharge Instructions Print Language: Ugand[place]
== END 2024-07-18 04:05 | disposition expired | DRG 720 ==
LOC: SERX 19:11 → SERHOLD 22:04 → S2SX 07-10 06:24 → S2NX 07-13 11:33 → S3SX 07-16 22:58
PROVIDERS: Emergency Medicine; Internal Medicine Infectious Disease; Student in an Organized Health Care Education/Training Program; Admitting Provider Internal Medicine; Emergency Provider Emergency Medicine; PCP Family Medicine; Visit Provider Student in an Organized Health Care Education/Training Program
DX: A41.52 Sepsis due to Pseudomonas (principal); E86.1 Hypovolemia; N13.6 Pyonephrosis; J15.0 Pneumonia due to Klebsiella pneumoniae; E87.0 Hyperosmolality and hypernatremia; I69.354 Hemiplegia and hemiparesis following cerebral infarction affecting left non-dominant side; J44.0 Chronic obstructive pulmonary disease with (acute) lower respiratory infection; R65.20 Severe sepsis without septic shock; J96.01 Acute respiratory failure with hypoxia; E78.5 Hyperlipidemia, unspecified; I46.8 Cardiac arrest due to other underlying condition; K21.9 Gastro-esophageal reflux disease without esophagitis; G35 Multiple sclerosis; G93.41 Metabolic encephalopathy; E11.22 Type 2 diabetes mellitus with diabetic chronic kidney disease; N18.9 Chronic kidney disease, unspecified; I13.0 Hypertensive heart and chronic kidney disease with heart failure and stage 1 through stage 4 chronic kidney disease, or unspecified chronic kidney disease; E87.1 Hypo-osmolality and hyponatremia; I47.20 Ventricular tachycardia, unspecified; E87.20 Acidosis, unspecified; D63.1 Anemia in chronic kidney disease; B38.9 Coccidioidomycosis, unspecified; N17.9 Acute kidney failure, unspecified; I50.9 Heart failure, unspecified; D63.8 Anemia in other chronic diseases classified elsewhere; E86.0 Dehydration; D75.839 Thrombocytosis, unspecified; Z74.01 Bed confinement status; Z86.711 Personal history of pulmonary embolism; Z79.01 Long term (current) use of anticoagulants; Z79.4 Long term (current) use of insulin; Z93.1 Gastrostomy status; Z16.24 Resistance to multiple antibiotics; Z66 Do not resuscitate; Z22.322 Carrier or suspected carrier of Methicillin resistant Staphylococcus aureus; Z51.5 Encounter for palliative care; Z87.442 Personal history of urinary calculi; B96.89 Other specified bacterial agents as the cause of diseases classified elsewhere
CPT/HCPCS: 36415; 36600; 70450; 71045; 74176; 80048; 80053; 80069; 80074; 81001; 82140; 82607; 82746; 82803; 83036; 83605; 83690; 83735; 83880; 83935; 84100; 84133; 84145; 84295; 84300; 84443; 84484; 85025; 85610; 85730; 86635; 86703; 86780; 87040; 87077; 87081; 87086; 87186; 87205; 87400; 87811; 93005; 94640; 94664; 94667; 96361; 96365; 96366; 96367; 96372; 99291; A9270; J1815; J1940; J1956; J2060; J2270; J2470; J2543; J3370; J3475; J3490; J7030; J7050; J7060; J7070